=== PATIENT | female | born 1990 ===

== ENCOUNTER 2017-08-09 05:10 | Emergency (ER) | payer MEDICARE, MEDICAID ==
[2017-08-09 05:28] VITALS: TEMP 97.8
[2017-08-09] MEDS ORDERED: Morphine 4 MG/ML VIAL ONE ×2 (05:47→06:58)
--- NOTE | 2017-08-09 06:00 | ED PDOC ---
HPI: General Adult Time Seen by Provider: 08/09/17 05:26 Chief Complaint (Nursing): Back Pain Chief Complaint (Provider): Flank Pain History Per: Patient History/Exam Limitations: no limitations Onset/Duration Of Symptoms: Hrs (x24) Current Symptoms Are (Timing): Still Present Additional Complaint(s): 26 year old female presents to ED with complaints of right flank pain x24 hours and has a past medical history of end-stage renal disease with M/W/F hemodialysis. Notes flank pain progressively worsens with time and radiates down her buttock. Confirms pain worsens with movement and change in position. (- ) numbness or tingling. Notes that Tylenol does not provide any relief. PCP: None Past Medical History Reviewed: Historical Data, Nursing Documentation, Vital Signs Vital Signs: Last Vital Signs Temp 97.8 F 08/09/17 05:25 Pulse 75 08/09/17 05:25 Resp 18 08/09/17 05:25 BP 147/87 08/09/17 05:25 Pulse Ox 97 08/09/17 06:04 - Medical History PMH: Anemia, HTN, Migraine, End Stage Renal Disease (STAGE 5), Chronic Kidney Disease (stage III renal failure, no dialysis) Denies: HIV - Surgical History Surgical History: Denies: No Surg Hx Other surgeries: AV fistula - Family History Family History: States: Unknown Family Hx - Immunization History Hx Tetanus Toxoid Vaccination: (UTD) - Home Medications Home Medications: Ambulatory Orders Medication Instructions Recorded Apixaban [Eliquis] 1 tab PO BID #0 tab 01/27/16 Calcium Acetate [Phoslo] 667 mg PO DAILY #0 tab 01/27/16 Cinacalcet [Sensipar] 1 tab PO DAILY #0 tab 01/27/16 amLODIPine [Norvasc] 5 mg PO DAILY #0 tab 01/27/16 - Allergies Allergies/Adverse Reactions: Allergies Allergy/AdvReac Type Severity Reaction Status Date / Time No Known Allergies Allergy Verified 08/09/17 05:25 Review of Systems ROS Statement: Except As Marked, All Systems Reviewed And Found Negative Musculoskeletal: Positive for: Back Pain ((+) right flank pain), Other (right flank pain radiates down buttock) Neurological: Negative for: Numbness, Other ((-) tingling) Physical Exam - Reviewed Nursing Documentation Reviewed: Yes Vital Signs Reviewed: Yes - Physical Exam Appears: Positive for: Non-toxic, No Acute Distress Skin: Positive for: Normal Color, Warm, Dry Cardiovascular/Chest: Positive for: Regular Rate, Rhythm. Negative for: Murmur Respiratory: Positive for: Normal Breath Sounds. Negative for: Respiratory Distress Gastrointestinal/Abdominal: Positive for: Normal Exam, Soft. Negative for: Tenderness Back: Positive for: Muscle Spasm (appreciable musculoskeletal spasm to the right paralumbar region). Negative for: Normal Inspection (tenderness to right paralumbar region) Extremity: Positive for: Normal ROM. Negative for: Deformity Neurologic/Psych: Positive for: Alert, Oriented. Negative for: Motor/Sensory Deficits - Laboratory Results Result Diagrams: 08/09/17 06:06 08/09/17 06:06 - ECG O2 Sat by Pulse Oximetry: 97 (RA) Pulse Ox Interpretation: Normal Medical Decision Making Medical Decision Makin Initial impression: 26 year old female with low back pain in setting of ESRD Initial plan: * EKG * Labs * Trop I * UDip * UPreg * PTT/PT * Flexeril 10mg PO * Morphine 4mg IVP * Re-eval 0655 Upon re-evaluation patient notes no improvement in pain. Labs reviewed: indicative of end-stage renal disease and shows blood in urine * CTA A/P * XR LUMBAR SPINE * Morphine 6mg IVP * Re-eval 0700 Patient signed out to Dr. Gonsalez pending imaging and re-evaluation. Scribe Attestation: Documented by Genesis Conklin acting as a scribe for Dejuan Castor MD. Scribe Attestation: All medical record entries made by the Scribe were at my direction and personally dictated by me. I have reviewed the chart and agree that the record accurately reflects my personal performance of the history, physical exam, medical decision making, and the department course for this patient. I have also personally directed, reviewed, and agree with the discharge instructions and disposition. Disposition - Patient ED Disposition Is Patient to be Admitted: Transfer of Care - Disposition Referrals: Ricci Pichardo MD [Primary Care Provider] - Disposition Time: 07:00 Condition: FAIR Forms: [employer] (Yoruba) Patient Signed Over To: Jimy Gonsalez Handoff Comments: pending imaging and re-evaluation
[2017-08-09 06:20] LABS: BASO # 0.1 K/uL (0.0-0.2); BASO % 0.5 % (0.0-2.0); EOS # 0.1 K/uL (0.0-0.7); EOS % 1.3 % (0.0-4.0); HEMOGLOBIN 10.7 g/dL (12.0-16.0); LYMPH % 17.9 % (20.0-40.0); MEAN CELL VOLUME 94.1 fl (81.0-99.0); MEAN CORPUSCULAR HEMOGLOBIN 31.8 pg (27.0-31.0); MEAN CORPUSCULAR HGB CONC 33.8 g/dL (33.0-37.0); MEAN PLATELET VOLUME 9.4 fl (7.2-11.7); MONO # 0.6 K/uL (0.0-0.8); MONO % 5.6 % (0.0-10.0); NEUT # 8.4 K/uL (1.8-7.0); NEUT % 74.7 % (50.0-75.0); RBC 3.35 Mil/uL (3.80-5.20); RED CELL DISTRIBUTION WIDTH 13.4 % (11.5-14.5); WHITE BLOOD COUNT 11.2 K/uL (4.8-10.8)
[2017-08-09 06:35] LABS: ALBUMIN 4.4 g/dL (3.5-5.0); BLOOD UREA NITROGEN 70 mg/dl (7-17); CALCIUM 8.2 mg/dL (8.4-10.2); GFR AFRICAN-AMERICAN 5; GFR NON-AFRICAN AMERICAN 4
[2017-08-09 06:36] LABS: ALB/GLOB RATIO 1.2 (1.0-2.1); ALT/SGPT 14 U/L (9-52); AST/SGOT 14 U/L (14-36)
[2017-08-09 06:38] LABS: PARTIAL THROMBOPLASTIN TIME 26.1 Seconds (25.6-37.1); PROTHROMBIN TIME 11.6 Seconds (9.8-13.1)
--- NOTE | 2017-08-09 07:48 | ED PDOC ---
- Laboratory Results Result Diagrams: 08/09/17 06:06 08/09/17 06:06 Interpretation Of Abn Labs: 11.2 wbc - ECG ECG: Positive for: Interpreted By Me, Viewed By Me ECG Rhythm: Positive for: Normal QRS, Normal ST Segment, Sinus Rhythm O2 Sat by Pulse Oximetry: 97 (RA) Pulse Ox Interpretation: Normal - Radiology X-Ray: Interpreted by Me, Viewed By Me X-Ray Interpretation: No Acute Disease - CT Scan/US ct Other Rad Studies (CT/US): Read By Radiologist Other Rad Interpretation: no acute - Progress ED Course And Treament: 700: Took over care from Dr. Castro. Fu on labs and imaging. Here with flank pain. Has kidney failure. 1008: Stable. AAOx3. Pain free. Tolerated PO. Fu with pcp. Disposition Counseled Patient/Family Regarding: Studies Performed, Diagnosis, Need For Followup - Clinical Impression Clinical Impression: Back pain - POA Present On Arrival: None - Disposition Referrals: Ricci Pichardo MD [Primary Care Provider] - 08/10/17 Disposition: Routine/Home Disposition Time: 10:07 Condition: FAIR Additional Instructions: Return if not better in 3 days. Instructions: Low Back Pain (DC)
--- NOTE | 2017-08-09 09:52 | CT ---
PROCEDURE: CT Abdomen and Pelvis without intravenous contrast HISTORY: renal colic COMPARISON: Noncontrast abdomen and pelvis CT 03/03/2015. TECHNIQUE: Helical CT of the abdomen and pelvis was performed without oral or intravenous contrast as per referring physician request. Contrast dose: None Radiation dose: Total exam DLP = 645.98 mGy-cm. This CT exam was performed using one or more of the following dose reduction techniques: Automated exposure control, adjustment of the mA and/or kV according to patient size, and/or use of iterative reconstruction technique. FINDINGS: LOWER THORAX: Dependent atelectasis left base. LIVER: Unremarkable. No gross lesion or ductal dilatation. GALLBLADDER AND BILE DUCTS: Unremarkable. PANCREAS: Unremarkable. No gross lesion or ductal dilatation. SPLEEN: Unremarkable. ADRENALS: Unremarkable. No mass. KIDNEYS AND URETERS: No radiodense urolithiasis, obstructive uropathy or significant perinephric reaction is appreciated bilaterally at this time. Urinary bladder is mildly distended with a thin wall, appearing unremarkable as well. VASCULATURE: Unremarkable. No aortic aneurysm. BOWEL: A few sigmoid diverticular appreciated which are noninflammatory. No obstruction. No gross mural thickening. APPENDIX: Normal appendix. PERITONEUM: Unremarkable. No free fluid. No free air. LYMPH NODES: Unremarkable. No enlarged lymph nodes. BLADDER: Unremarkable. REPRODUCTIVE: Unremarkable. BONES: No acute fracture. OTHER FINDINGS: None. IMPRESSION: No definitive acute abdominal or pelvic findings are appreciated in this noncontrast abdomen and pelvis CT, including the bilateral kidneys, ureters and the urinary bladder. If symptoms persist or worsen consider follow-up contrast CT imaging. Sigmoid diverticulosis appears quite mild, without acute associated changes.
[2017-08-09 10:53] VITALS: BP 132/76; PULSE 76; RESP 16; O2SAT 100
--- NOTE | 2017-08-09 13:18 | RAD ---
PROCEDURE: Radiographs of the Lumbar Spine. HISTORY: back pain COMPARISON: CT scan of the abdomen and pelvis dated 03/03/2015. FINDINGS: BONES: Normal alignment. No listhesis. No fracture. DISC SPACES: Unremarkable. OTHER FINDINGS: None. IMPRESSION: Unremarkable radiographs of the lumbar spine.
--- NOTE | 2017-08-11 11:13 | CARD ---
APPROVED REPORT EKG Measurement Heart [id number] <Conclusion> Normal sinus rhythm Normal ECG
== END 2017-08-09 10:51 | disposition home or self-care (01) ==
LOC: H.ER 05:10
DX: M54.5 Low back pain (principal); R10.9 Unspecified abdominal pain; I12.0 Hypertensive chronic kidney disease with stage 5 chronic kidney disease or end stage renal disease; N18.6 End stage renal disease; Z99.2 Dependence on renal dialysis; K57.30 Diverticulosis of large intestine without perforation or abscess without bleeding; Z79.01 Long term (current) use of anticoagulants
CPT/HCPCS: 72114; 74176; 80053; 81025; 84484; 85025; 85610; 85730; 93005; 96374; 96376; 99284; J2270

== ENCOUNTER 2017-09-21 23:12 | Emergency (ER) | payer MEDICARE, MEDICAID ==
[2017-09-21 23:48] VITALS: RESP 18; O2SAT 100
[2017-09-22 01:00] LABS: BASO % 0.2 % (0.0-2.0); EOS # 0.2 K/uL (0.0-0.7); EOS % 1.3 % (0.0-4.0); HEMOGLOBIN 10.5 g/dL (12.0-16.0); LYMPH % 14.5 % (20.0-40.0); MEAN CELL VOLUME 94.4 fl (81.0-99.0); MEAN CORPUSCULAR HEMOGLOBIN 31.3 pg (27.0-31.0); MEAN CORPUSCULAR HGB CONC 33.2 g/dL (33.0-37.0); MEAN PLATELET VOLUME 10.1 fl (7.2-11.7); MONO # 1.1 K/uL (0.0-0.8); NEUT # 10.7 K/uL (1.8-7.0); RBC 3.35 Mil/uL (3.80-5.20); RED CELL DISTRIBUTION WIDTH 13.4 % (11.5-14.5); WHITE BLOOD COUNT 14.1 K/uL (4.8-10.8)
[2017-09-22 01:39] LABS: ALB/GLOB RATIO 1.3 (1.0-2.1); ALBUMIN 4.5 g/dL (3.5-5.0)
--- NOTE | 2017-09-22 02:36 | ED PDOC ---
HPI:Nausea, Vomiting, Diarrhea Time Seen by Provider: 09/21/17 23:56 Chief Complaint (Nursing): GI Problem Chief Complaint (Provider): GI Problem History Per: Patient History/Exam Limitations: no limitations Onset/Duration Of Symptoms: Days (x2) Current Symptoms Are (Timing): Still Present Associated Symptoms: Nausea, Vomiting Additional Complaint(s): Patient complains of nausea, vomiting and generalized weakness ongoing for the past 2 days. Patient undergoes dialysis on MWF with last treatments yesterday and today. Patient reports having dialysis done Monday and yesterday ( ) as well, with no improvement in symptoms, thus, prompting ED visit. Otherwise: (-) fever, (-) chills, (-) chest pain, (-) shortness of breath, (-) abdominal pain, (-) dysuria or (-) hematuria. Of note, patient states she is sexually active with use protection. LMP: early 07/2017. PMD: Dr. Go Pichardo Past Medical History Reviewed: Historical Data, Nursing Documentation, Vital Signs Vital Signs: Last Vital Signs Temp 98.7 F 09/21/17 23:38 Pulse 82 09/21/17 23:38 Resp 18 09/21/17 23:38 BP 134/89 09/21/17 23:38 Pulse Ox 100 09/21/17 23:38 - Medical History PMH: Anemia, HTN, Migraine, End Stage Renal Disease (STAGE 5), Chronic Kidney Disease (stage III renal failure, no dialysis) Denies: HIV - Family History Family History: States: Unknown Family Hx - Immunization History Hx Tetanus Toxoid Vaccination: (UTD) - Home Medications Home Medications: Ambulatory Orders Medication Instructions Recorded Apixaban [Eliquis] 1 tab PO BID #0 tab 01/27/16 Calcium Acetate [Phoslo] 667 mg PO DAILY #0 tab 01/27/16 Cinacalcet [Sensipar] 1 tab PO DAILY #0 tab 01/27/16 amLODIPine [Norvasc] 5 mg PO DAILY #0 tab 01/27/16 Lidocaine 5% [Lidoderm] 1 ea TD DAILY PRN #5 patch 08/09/17 traMADol [Ultram] 25 mg PO DAILY PRN #5 tab 08/09/17 Cephalexin [cephalexin] 250 mg PO BID #14 cap 09/22/17 - Allergies Allergies/Adverse Reactions: Allergies Allergy/AdvReac Type Severity Reaction Status Date / Time No Known Allergies Allergy Verified 08/09/17 05:25 Review of Systems ROS Statement: Except As Marked, All Systems Reviewed And Found Negative Constitutional: Positive for: Weakness. Negative for: Fever, Chills Cardiovascular: Negative for: Chest Pain Respiratory: Negative for: Shortness of Breath Gastrointestinal: Positive for: Nausea, Vomiting Genitourinary Female: Negative for: Dysuria, Hematuria Physical Exam - Reviewed Nursing Documentation Reviewed: Yes Vital Signs Reviewed: Yes - Physical Exam Comments: GENERAL APPEARANCE: Patient is awake, alert, oriented x 3, in no distress. SKIN: Warm, dry; (-) cyanosis. EYES: (-) conjunctival pallor, (-) scleral icterus. ENMT: Mucous membranes moist. NECK: (-) tenderness, (-) stiffness, (-) lymphadenopathy. CHEST AND RESPIRATORY: (-) rales, (-) rhonchi, (-) wheezes; breath sounds equal bilaterally. HEART AND CARDIOVASCULAR: (-) irregularity; (-) murmur, (-) gallop. ABDOMEN AND GI: (-) distention. Bowel sounds active; (-) tenderness, (-) guarding, (-) rebound, (-) palpable masses, (-) CVA tenderness. EXTREMITIES: (-) deformity, (-) edema, (+) distal pulses. NEURO AND PSYCH: Mental status as above; (-) focal findings. - Laboratory Results Result Diagrams: 09/22/17 00:57 09/22/17 00:57 - ECG O2 Sat by Pulse Oximetry: 100 (RA) Pulse Ox Interpretation: Normal Medical Decision Making Medical Decision Making: Initial Impression: Nausea; vomiting Initial Plan: * BETA-HCG * CMP * Lipase * Urine * Urine dipstick * CBC * Zofran 4mg IVP Time: 0104 --Urine: (+) . Udip: (+) trace leuks, (+) glucose 250, (+) protiens > 300. --BETA-HCG at 189,750mIU/mL. --CMP wnl --US OB transvaginal ordered. US OB TV: FINDINGS: Gestation: Single living intrauterine gestation Placenta/amniotic fluid: Living intrauterine gestation at 7 weeks 0 days [place] is 05/11/18 Positive embryonic heart tones at 135 beats per minute Gestational sac is located in the uterine fundus. Normal secondary yolk sac. No significant subchorionic bleed. The placenta is forming posteriorly and is currently previa. Final placental positioning is determined after 32 weeks. Uterus/cervix: Cervix is closed. Nabothian cyst. No myometrial mass. Ovaries: Maternal ovaries identified with documented flow and follicles. There is a probable 2 cm right corpus luteum cyst. No mass. Free fluid: No free fluid. IMPRESSION: Single living intrauterine gestation without abnormalities. Dictated and Authenticated by: Audelia Morales MD 09/22/2017 3:46 AM Eastern Time ([place] & [place]) On re-evaluation, patient reports no abdominal pain or vaginal bleeding. On exam , patient remains AAOx3, in no acute distress. Abdomen soft, non-tender, repeat neuro exam shows no focal findings. Diagnostic results d/w the patient in great detail. Diagnosis of early , UTI d/w the patient. Based on history, exam and diagnostic results, plan will be for outpatient follow up. Patient instructed to follow-up with bedspread cutter hand and high court justice in 1-2 days without fail. Advised to take medication as prescribed. Return to the emergency room at any time for any new or worsening symptoms. Patient states she fully agrees with and understands discharge instructions. States that she agrees with the plan and disposition. Verbalized and repeated discharge instructions and plan. I have given the patient opportunity to ask any additional questions. Scribe Attestation: Documented by Violeta Zhu, acting as a scribe for Ching Espino PA-C. Provider Scribe Attestation: All medical record entries made by the Scribe were at my direction and personally dictated by me. I have reviewed the chart and agree that the record accurately reflects my personal performance of the history, physical exam, medical decision making, and the department course for this patient. I have also personally directed, reviewed, and agree with the discharge instructions and disposition. Disposition - Clinical Impression Clinical Impression: Chronic kidney disease with end stage renal failure on dialysis, , UTI (urinary tract infection) - Patient ED Disposition Is Patient to be Admitted: No Counseled Patient/Family Regarding: Studies Performed, Diagnosis, Need For Followup - Disposition Referrals: Go Pichardo MD [Primary Care Provider] - Corey Harris MD [Staff Provider] - Disposition: Routine/Home Disposition Time: 03:15 Condition: STABLE Additional Instructions: Thank you for letting us take care of you today. You were treated for renal failure on dialysis, . The emergency medical care you received today was directed towards the acute presenting symptoms. Return to the Emergency Department at any time if symptoms worsen, do not improve, or if any other problems arise. Please contact your kidney doctor in 2 days for re-evaluation and follow up / or call one of the physicians/clinics you have been referred to that are listed on the Patient Visit Information form that is included in your discharge packet. Bring any paperwork you were given at discharge with you along with any medications to your follow up visit. Our treatment cannot replace ongoing medical care by a primary care provider (PCP) outside of the emergency department. Thank you for allowing the [facility] team to be part of your care today. Prescriptions: Cephalexin [cephalexin] 250 mg PO BID #14 cap Instructions: Urinary Tract Infections in Adults, Kidney Failure (DC), - The Second Month Forms: [employer] (Honduran) - PA / STATE APPELLATE CLERK / Resident Statement MD/DO has reviewed & agrees with the documentation as recorded.
[2017-09-22 05:41] VITALS: BP 137/75; PULSE 73; TEMP 98.3
--- NOTE | 2017-09-22 12:03 | US ---
Date of service: 09/22/2017 PROCEDURE: First trimester ultrasound HISTORY: nausea, test COMPARISON: None available. TECHNIQUE: Standard protocol for this study/examination. FINDINGS: LMP: Unknown. Prior examinations from the current : None TECHNIQUE: Real-time 2D imaging, duplex and color Doppler. FINDINGS: Cardiac activity: Present Rate: 135 BPM Measurements: Spur rump length: 0.91 cm Gestational age based on CRL 6 weeks 6 days Gestational age 7 weeks 1 day based on gestational sac measurement 2.47 cm Gestational age derived from LMP: Cannot be ascertained based in the absence of a reliable/ known LMP [place] based on LMP: Cannot be ascertained based in the absence of a reliable/ known LMP [place] based on biometry: 05/11/2018 Gestational concordance Cannot be ascertained based in the absence of a reliable/ known LMP Yolk sac identified Uterus: Unremarkable. Cervix: No Cervical abnormalities: Negative examination for cervical dilatation or effacement. Closed cervix measuring 4.56 cm Subchorionic hemorrhage: None UTERUS: 6.8 x 4.8 x 9.0 cm. ADNEXA: Right: 2.7 x 3.5 cm. Normal Doppler arterial waveform documented. Left: 3.2 x 2.3 x 2.1 cm. Complex cyst likely hemorrhagic 2.2 x 2.1 x 1.7 cm. Normal Doppler arterial waveform documented Fluid in the cul-de-sac: None IMPRESSION: Seven weeks live intrauterine gestation. Additional benign and/or incidental findings described above. Concordant results (preliminary interpretation) provided by [employer]. Procedure Completed: 01:48. Preliminary ([employer]) Report: Dictated and Authenticated: 03:46. Final Interpretation: 12:01 September 22, 2017.
== END 2017-09-22 03:44 | disposition home or self-care (01) ==
LOC: H.ER 23:12
DX: N18.6 End stage renal disease (principal); Z99.2 Dependence on renal dialysis; O23.41 Unspecified infection of urinary tract in pregnancy, first trimester; O26.831 Pregnancy related renal disease, first trimester; Z3A.01 Less than 8 weeks gestation of pregnancy; Z79.01 Long term (current) use of anticoagulants; O21.9 Vomiting of pregnancy, unspecified
CPT/HCPCS: 76817; 80053; 81025; 83690; 84702; 85025; 87086; 96374; 99284; J2405

== ENCOUNTER 2017-10-28 02:26 | Emergency (ER) | payer MEDICARE, MEDICAID ==
[2017-10-28 02:48] VITALS: RESP 18; TEMP 98.4
[2017-10-28] MEDS ORDERED: Morphine 4 MG/ML VIAL ONE (03:49)
[2017-10-28 03:52] LABS: BASO # 0.1 K/uL (0.0-0.2); BASO % 0.3 % (0.0-2.0); EOS # 0.2 K/uL (0.0-0.7); EOS % 0.8 % (0.0-4.0); HEMOGLOBIN 8.8 g/dL (12.0-16.0); LYMPH # 2.3 K/uL (1.0-4.3); LYMPH % 12.3 % (20.0-40.0); MEAN CELL VOLUME 92.6 fl (81.0-99.0); MEAN CORPUSCULAR HEMOGLOBIN 32.1 pg (27.0-31.0); MEAN CORPUSCULAR HGB CONC 34.7 g/dL (33.0-37.0); MEAN PLATELET VOLUME 9.4 fl (7.2-11.7); MONO % 5.6 % (0.0-10.0); NEUT # 14.9 K/uL (1.8-7.0); RBC 2.73 Mil/uL (3.80-5.20); RED CELL DISTRIBUTION WIDTH 13.6 % (11.5-14.5); WHITE BLOOD COUNT 18.4 K/uL (4.8-10.8)
[2017-10-28 04:25] LABS: ALB/GLOB RATIO 1.2 (1.0-2.1); ALBUMIN 4.1 g/dL (3.5-5.0)
[2017-10-28 04:26] LABS: PROTHROMBIN TIME 10.7 Seconds (9.8-13.1)
[2017-10-28 04:29] LABS: PARTIAL THROMBOPLASTIN TIME 26.4 Seconds (25.6-37.1)
[2017-10-28 05:17] LABS: SQUAMOUS EPITHIAL 5 /hpf (0-5); URINE BACTERIA RARE (<OCC); URINE BILIRUBIN NEGATIVE (NEGATIVE); URINE BLOOD NEGATIVE (NEGATIVE); URINE CLARITY SLIGHTY-CLOUDY (Clear); URINE COLOR YELLOW (YELLOW); URINE GLUCOSE (UA) 150 mg/dL (Normal); URINE LEUKOCYTE ESTERASE NEG Leu/uL (Negative); URINE PROTEIN 100 mg/dL (NEGATIVE); URINE UROBILINOGEN 0.2-1.0 mg/dL (0.2-1.0)
--- NOTE | 2017-10-28 05:34 | ED PDOC ---
HPI: Abdomen Time Seen by Provider: 10/28/17 03:00 Chief Complaint (Nursing): Abdominal Pain Chief Complaint (Provider): Abdominal Pain, Rectal Pain History Per: Patient History/Exam Limitations: no limitations Onset/Duration Of Symptoms: Days (x2) Current Symptoms Are (Timing): Still Present Additional Complaint(s): 26 year old female EGA 12 weeks, with a pmhx of end stage renal disease on dialysis (Mon SAT), presents to the ED for two days of worsening rectal and abdominal pain. Patient reports strained bowel movements, but otherwise denies fever, diarrhea, nausea, vomiting, urinary sxs, and changes in appetite. She visits multiple doctors, such as Marino - her ski patrol officer, a high risk maternal group in [place], and an cullet crusher and washer in [place]. PMD: Go Pichardo Past Medical History Reviewed: Historical Data, Nursing Documentation, Vital Signs Vital Signs: Last Vital Signs Temp 98.4 F 10/28/17 02:45 Pulse 96 H 10/28/17 02:45 Resp 18 10/28/17 02:45 BP 151/91 H 10/28/17 02:45 Pulse Ox 99 10/28/17 05:48 - Medical History PMH: Anemia, HTN, Migraine, End Stage Renal Disease (STAGE 5), Chronic Kidney Disease (stage III renal failure, no dialysis) Denies: HIV - Surgical History Other surgeries: AV fistulas - Family History Family History: States: Unknown Family Hx - Social History Current smoker - smoking cessation education provided: No Alcohol: None Drugs: Denies - Immunization History Hx Tetanus Toxoid Vaccination: (UTD) - Home Medications Home Medications: Ambulatory Orders Medication Instructions Recorded Apixaban [Eliquis] 1 tab PO BID #0 tab 01/27/16 Calcium Acetate [Phoslo] 667 mg PO DAILY #0 tab 01/27/16 Cinacalcet [Sensipar] 1 tab PO DAILY #0 tab 01/27/16 amLODIPine [Norvasc] 5 mg PO DAILY #0 tab 01/27/16 Lidocaine 5% [Lidoderm] 1 ea TD DAILY PRN #5 patch 08/09/17 traMADol [Ultram] 25 mg PO DAILY PRN #5 tab 08/09/17 Cephalexin [cephalexin] 250 mg PO BID #14 cap 09/22/17 Hard Fat/Phenylephrine [place] 2 sup [place] BID #28 sup 10/28/17 [Hemorrhoidal 88.7%-0.25%] Polyethylene Glycol 3350 [Miralax] 17 g PO QAM PRN #7 pkg 10/28/17 - Allergies Allergies/Adverse Reactions: Allergies Allergy/AdvReac Type Severity Reaction Status Date / Time No Known Allergies Allergy Verified 10/28/17 02:45 Review of Systems ROS Statement: Except As Marked, All Systems Reviewed And Found Negative Constitutional: Negative for: Fever Gastrointestinal: Positive for: Abdominal Pain, Rectal Pain, Other (strained bowel movements). Negative for: Nausea, Vomiting, Diarrhea Genitourinary Female: Negative for: Dysuria, Frequency Physical Exam - Reviewed Nursing Documentation Reviewed: Yes Vital Signs Reviewed: Yes - Physical Exam Appears: Positive for: No Acute Distress Head Exam: Positive for: ATRAUMATIC, NORMOCEPHALIC Skin: Positive for: Normal Color, Warm, Dry Eye Exam: Positive for: Normal appearance ENT: Positive for: Normal ENT Inspection Neck: Positive for: Normal, Painless ROM, Supple Cardiovascular/Chest: Positive for: Regular Rate, Rhythm Respiratory: Positive for: Normal Breath Sounds Gastrointestinal/Abdominal: Positive for: Tenderness (mild suprapubic) Back: Positive for: Normal Inspection Rectal: Positive for: Hemorrhoids (no external, but palpable internal one around 6 o'clock with no gross blood) Extremity: Positive for: Normal ROM Neurologic/Psych: Positive for: Alert, Oriented Comments: Research Laboratory Manager for rectal exam: Analia Enriquez - Laboratory Results Result Diagrams: 10/28/17 03:41 10/28/17 03:41 - ECG O2 Sat by Pulse Oximetry: 99 (RA) Pulse Ox Interpretation: Normal Medical Decision Making Medical Decision Making: Time: 303 Initial Impression: 26 year old female with abdominal and rectal pain associated with and constipation Initial Plan: --Beta-HCG quant --CMP --Lipase --Urine dipstick --CBC w differential --PTT / PT --Morphine 4mg IVP --Reglan 10mg IVPB --Urinalysis --US OB transvaginal 0536 US OB TRANSVAG FINDINGS: Gestation: There is single intrauterine gestational sac with presence of pole The heart motion at the rate of 155 beats per minute. Estimated gestational age calculated from [place] rump length is estimated to be 12 weeks 1 days and estimated gestational age calculated from mean sac diameter is 11 weeks 2 days. Placenta/amniotic fluid: Placenta is forming posteriorly. Uterus/cervix: Unremarkable. Ovaries: The right ovary measures 7.9 x 7.8 x 5.4 cm. Enlarged right ovary. The left ovary measures 7.9 x 7.9 x 5.9 cm. Enlarged left ovary. Free fluid: No free fluid. IMPRESSION: 1. Enlarged bilateral ovaries with multiple cysts. 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 2. IUP as described. 0540 Labs reviewed and show high leukocytes consistent with leukocytosis and . Pt is stable for d/c with the diagnosis of hemorrhoids, ovarian cysts , and proctalgia. Pt is to receive dialysis tx later today and follow up with her PMD. Scribe Attestation: Documented by Diamante Reddy, acting as a scribe for Dejuan Castro MD. Provider Scribe Attestation: All medical record entries made by the Scribe were at my direction and personally dictated by me. I have reviewed the chart and agree that the record accurately reflects my personal performance of the history, physical exam, medical decision making, and the department course for this patient. I have also personally directed, reviewed, and agree with the discharge instructions and disposition. Disposition - Clinical Impression Clinical Impression: Proctalgia, Ovarian cyst - Patient ED Disposition Is Patient to be Admitted: No Counseled Patient/Family Regarding: Studies Performed, Diagnosis, Need For Followup - Disposition Disposition: Routine/Home Disposition Time: 05:50 Condition: STABLE Prescriptions: Hard Fat/Phenylephrine [place] [Hemorrhoidal 88.7%-0.25%] 2 sup [place] BID #28 sup Polyethylene Glycol 3350 [Miralax] 17 g PO QAM PRN #7 pkg PRN Reason: Constipation Instructions: Ovarian Cysts, Hemorrhoids (DC) Forms: [employer] (Dutch)
[2017-10-28 06:43] VITALS: BP 148/89; PULSE 82; O2SAT 98
--- NOTE | 2017-10-28 08:25 | US ---
Date of service: 10/28/2017 PROCEDURE: HISTORY: abd pain in preg COMPARISON: 09/22/2017 TECHNIQUE: FINDINGS: Single live intrauterine gestational sac with pole and estimated gestational age of roughly 12 weeks. . Right ovary measures 7.9 x 7.8 x 5.4 centimeters. Left ovary measures 7.9 x 7.9 x 5.9 centimeters. No free fluid the pelvis. heart motion identified. Posterior placenta. IMPRESSION: IUP as described above. Enlarged bilateral ovaries with numerous bilateral ovarian cysts possibly related to ovarian stimulation syndrome. Recommend short-term interval followup and gynecological consultation.
== END 2017-10-28 06:00 | disposition home or self-care (01) ==
LOC: H.ER 02:26
DX: O34.80 Maternal care for other abnormalities of pelvic organs, unspecified trimester (principal); I12.0 Hypertensive chronic kidney disease with stage 5 chronic kidney disease or end stage renal disease; O10.211 Pre-existing hypertensive chronic kidney disease complicating pregnancy, first trimester; Z99.2 Dependence on renal dialysis; Z79.01 Long term (current) use of anticoagulants
CPT/HCPCS: 76817; 80053; 81003; 83690; 84702; 85025; 85610; 85730; 96374; 99283; J2270; J2765

== ENCOUNTER 2017-12-05 20:48 | Emergency (ER) | payer MEDICARE, MEDICAID ==
[2017-12-05 22:30] LABS: VENOUS BLOOD GAS BASE EXCESS 4.9 mmol/L (0.0-2.0); VENOUS BLOOD GAS PCO2 41 mmHg (40-60); VENOUS BLOOD GAS PO2 53 mm/Hg (30-55); VENOUS BLOOD PH 7.46 (7.32-7.43)
[2017-12-05 22:31] LABS: BASO % 0.3 % (0.0-2.0); EOS # 0.1 K/uL (0.0-0.7); EOS % 0.8 % (0.0-4.0); HEMOGLOBIN 7.7 g/dL (12.0-16.0); LYMPH # 1.9 K/uL (1.0-4.3); LYMPH % 12.5 % (20.0-40.0); MEAN CELL VOLUME 102.6 fl (81.0-99.0); MEAN CORPUSCULAR HEMOGLOBIN 34.5 pg (27.0-31.0); MEAN CORPUSCULAR HGB CONC 33.6 g/dL (33.0-37.0); MEAN PLATELET VOLUME 8.3 fl (7.2-11.7); MONO # 0.8 K/uL (0.0-0.8); MONO % 5.1 % (0.0-10.0); NEUT # 12.5 K/uL (1.8-7.0); NEUT % 81.3 % (50.0-75.0); RBC 2.23 Mil/uL (3.80-5.20); RED CELL DISTRIBUTION WIDTH 19.9 % (11.5-14.5); WHITE BLOOD COUNT 15.4 K/uL (4.8-10.8)
[2017-12-05 22:51] LABS: TROPONIN I 0.016 ng/mL (0.00-0.120)
[2017-12-05 22:58] LABS: CALCIUM 9.3 mg/dL (8.4-10.2)
--- NOTE | 2017-12-05 23:24 | ED PDOC ---
HPI: SOB/CHF/COPD Time Seen by Provider: 12/05/17 21:21 Chief Complaint (Nursing): Shortness Of Breath Chief Complaint (Provider): Shortness of breath History Per: Patient History/Exam Limitations: no limitations Onset/Duration Of Symptoms: Days (1x) Current Symptoms Are (Timing): Still Present Severity: Moderate Additional Complaint(s): 27 year old female 17 weeks with a medical history of end stage renal disease (on dialysis 5x times a week) presents to the ED with complaints of shortness of breath that started 1x day ago. Patient states that there is also a lump in her chin and "achiness". Patient reports that she missed dialysis today, otherwise she goes to her appointments and the next scheduled one is for 9AM on 12/06/2017. Patient states that she follows up with a high risk specialist (Karlos STEELE, [facility]). Patient denies having any recent illness, sick contacts, bleeding, abdominal pain. PMD: Jaleesa Pichardo MD OBGYN: Karlos [facility] Past Medical History Reviewed: Historical Data, Nursing Documentation, Vital Signs Vital Signs: Last Vital Signs Temp 98.5 F 12/05/17 20:56 Pulse 103 H 12/05/17 20:56 Resp 18 12/05/17 22:18 BP 166/103 H 12/05/17 20:56 Pulse Ox 100 12/05/17 22:18 - Medical History PMH: Anemia, HTN, Migraine, End Stage Renal Disease (STAGE 5), Chronic Kidney Disease (stage III renal failure, no dialysis) Denies: HIV - Family History Family History: States: No Known Family Hx - Social History Current smoker - smoking cessation education provided: No Alcohol: None - Immunization History Hx Tetanus Toxoid Vaccination: (UTD) - Home Medications Home Medications: Ambulatory Orders Medication Instructions Recorded Apixaban [Eliquis] 1 tab PO BID #0 tab 01/27/16 Calcium Acetate [Phoslo] 667 mg PO DAILY #0 tab 01/27/16 Cinacalcet [Sensipar] 1 tab PO DAILY #0 tab 01/27/16 amLODIPine [Norvasc] 5 mg PO DAILY #0 tab 01/27/16 Lidocaine 5% [Lidoderm] 1 ea TD DAILY PRN #5 patch 08/09/17 traMADol [Ultram] 25 mg PO DAILY PRN #5 tab 08/09/17 Cephalexin [cephalexin] 250 mg PO BID #14 cap 09/22/17 Hard Fat/Phenylephrine Couch 2 sup IL BID #28 sup 10/28/17 [Hemorrhoidal 88.7%-0.25%] Polyethylene Glycol 3350 [Miralax] 17 g PO QAM PRN #7 pkg 10/28/17 Acetaminophen [Acetaminophen 8 650 mg PO Q8 PRN #21 tablet.er 11/01/17 Hour] Hydrocortisone 2.5% (Rectal) 1 applic IL BID PRN #1 tube 11/01/17 [Anusol-HC] - Allergies Allergies/Adverse Reactions: Allergies Allergy/AdvReac Type Severity Reaction Status Date / Time No Known Allergies Allergy Verified 11/01/17 14:55 Review of Systems ROS Statement: Except As Marked, All Systems Reviewed And Found Negative Respiratory: Positive for: Shortness of Breath Skin: Positive for: Other (lump on chin with achiness) Physical Exam - Reviewed Nursing Documentation Reviewed: Yes Vital Signs Reviewed: Yes - Physical Exam Appears: Positive for: Well, Non-toxic, No Acute Distress (patient appears anxious) Head Exam: Positive for: ATRAUMATIC, NORMOCEPHALIC Skin: Positive for: Normal Color ENT: Positive for: Other (on chin: soft non-fluctuant mass. (-) tongue swelling, erythema of pharynx) Cardiovascular/Chest: Positive for: Regular Rate, Rhythm Respiratory: Positive for: Normal Breath Sounds. Negative for: Crackles, Rhonchi Gastrointestinal/Abdominal: Positive for: Normal Exam, Soft. Negative for: Tenderness Extremity: Negative for: Swelling (no edema) Neurologic/Psych: Positive for: Alert, Oriented (3x) - Laboratory Results Result Diagrams: 12/05/17 22:19 12/05/17 22:19 - ECG O2 Sat by Pulse Oximetry: 100 (RA) Pulse Ox Interpretation: Normal Medical Decision Making Medical Decision Makin:21 Initial impression: 27 year old female 17 weeks with complains of shortness of breath and a lump on her chin. Workup for fluid overload vs. infection leading to shortness of breath. Initial plan: * VBG * BNP * BMP * magnesium * phosphorous * troponin I * CBC with differential * XRay chest portable * solumedrol 125 mg IVP once for swelling * O2 via nasal cannula * US OB saini as per request of patient to make sure there are no complications * reevaluation 23:00 Patient is being signed out by me to Dejuan Castro MD pending ultrasound and reevaluation. Scribe Attestation: Documented by Eve Lance, acting as a scribe for Eve Gardiner MD. Provider Scribe Attestation: All medical record entries made by the Scribe were at my direction and personally dictated by me. I have reviewed the chart and agree that the record accurately reflects my personal performance of the history, physical exam, medical decision making, and the department course for this patient. I have also personally directed, reviewed, and agree with the discharge instructions and disposition. Disposition - Disposition Forms: Reebee (Mongolian)
[2017-12-06 00:09] VITALS: BP 135/78; PULSE 91; RESP 16; TEMP 98.8; O2SAT 97
--- NOTE | 2017-12-06 10:45 | RAD ---
Date of service: 12/05/2017 HISTORY: SOB COMPARISON: 01/26/2016. FINDINGS: LUNGS: The lungs are well inflated and clear. PLEURA: No significant pleural effusion identified, no pneumothorax apparent. CARDIOVASCULAR: Normal. OSSEOUS STRUCTURES: No significant abnormalities. VISUALIZED UPPER ABDOMEN: Normal. OTHER FINDINGS: None. IMPRESSION: No active pulmonary disease.
--- NOTE | 2017-12-06 11:44 | US ---
Date of service: 12/05/2017 PROCEDURE: OB Pelvic Ultrasound HISTORY: preg with missed dialysis LMP not provided at this setting COMPARISON: 10/28/2017 FINDINGS: UTERUS: Gestational sac: Single intrauterine gestation. Heart rate: 156 bpm. age (Ultrasound estimated): 17 weeks 6 days +/-1 week 2 days Kalyani-gestational hemorrhage: None. Date of delivery (Ultrasound estimated) : 05/09/2018 No gross uterine masses seen CERVIX: Measures 4.8 cm. Long and closed. No cervical abnormality seen. RIGHT OVARY: Measures 7.9 x 4.9 x 5.3 cm. The appearance of the right ovary has markedly changed since the prior 10/28/2017 study. A 4.2 x 3.6 x 4.2 multiloculated component to the right ovary is noted this is much smaller in size compared to the prior much larger multiloculated appearance normal flow seen. Not all the right ovary appears loculated. Surveillance is recommended. LEFT OVARY: Not visualized. FREE FLUID: None. OTHER FINDINGS: None. IMPRESSION: Single intrauterine gestation with normal cardiac activity whose menstrual age by ultrasound parameters is approximately 17 weeks 6 days +/-1 week 2 days. Interval decrease in size and extent of the right adnexal/right ovarian locules within previously larger loculated cysts. Correlate clinically with beta HCG levels regarding potential gestational trophoblastic changes. However diminution in size is suggested. Size of the right ovary is still prominent as above. 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 Nonvisualized left ovary. Initial [facility] rad report referenced right corpus luteal cyst. No prior comparison was made. Findings are as noted above.
== END 2017-12-06 00:23 | disposition home or self-care (01) ==
LOC: H.ER 20:48
DX: O99.512 Diseases of the respiratory system complicating pregnancy, second trimester (principal); J44.9 Chronic obstructive pulmonary disease, unspecified; O26.832 Pregnancy related renal disease, second trimester; Z99.2 Dependence on renal dialysis; N18.6 End stage renal disease; Z36.9 Encounter for antenatal screening, unspecified; I12.0 Hypertensive chronic kidney disease with stage 5 chronic kidney disease or end stage renal disease; Z79.01 Long term (current) use of anticoagulants; Z3A.17 17 weeks gestation of pregnancy
CPT/HCPCS: 71045; 76815; 80048; 81025; 82803; 83735; 83880; 84100; 84484; 85025; 96374; 99284; J2405; J2930

== ENCOUNTER 2018-02-04 23:32 | Emergency (ER) | payer MEDICARE, MEDICAID ==
[2018-02-04 23:48] VITALS: BMI 29.2
--- NOTE | 2018-02-05 01:14 | OBHP ---
Datetime: 02/05/2018 01:01 IP Adm Impression: , intrauterine IP Chief Complaint Other: overall itching and acid reflux IP Admit Plan: Observation/Evaluation; Discharge home Admit Comment, IP Provider: Patient is a @ 27 wks with a history of kidney failure on daily dialysis 6x/wk, presents with complaints of overall body itching and acid reflux. Patient reports she has been having increased body itching for a week or so including her palms and soles, her MFM has d rawn the appropriate labs on 02/01. Patient has not tried any OTC medication. Patient also reports she has been having daily acid reflux, feels an overall burning sensation in the mid epigastric area trina t causes her to have some vomiting daily. As per patient, she was told to keep meals small and drink milk when the acidity is increased. Patient reports her phosphorous levels are elevated because of he r increased milk intake and her doctors have told her not to take Tums or other antiacids. Her MFM is Dr. Madrigal in [place] and pt has her daily dialysis in [place]. Discussed with patient that the bile acids can take about a week and at this time the only treatment that we can safely recommend is topical creams/hypoallergenic cream. For her acidity, do not recommend treating patient with antacids or Tums because both are excreted in the urine and can affect her existing kidney failure. Patient's initial BP is 152/90 and FHR = 140 mod maral, no accels no decels, no other OB complaints. Discussed w ith patient that she is not in acute distress nor is the fetus and both of these issues are benign is sues - patient to be better served at a high risk facility that takes care of OB patients on dialysis . Patient feels most comfortable with her team at [place]. Patient is being discharged and is nicholas g to receive immediate care at [place] Pelvic Type - PN: Adequate Extremities - PN: Normal Abdomen - PN: Normal Back - PN: Normal Breast - PN: Normal Lungs - PN: Normal Heart - PN: Normal Thyroid - PN: Normal Neurologic - PN: Normal HEENT - PN: Normal General - PN: Normal FHR - Baseline A Provider: 140 Contraction Comments Provider: none Vital Signs Provider: Reviewed NICHFelix Variability Prov Fetus A: Moderate 6-25bpm NICHD Decel Fetus A IP Provider: None Genitourinary Exam: Normal DTRs - PN: Normal
--- NOTE | 2018-02-05 01:16 | OBDCSUM ---
Datetime: 02/05/2018 00:46 Discharged to, Provider: Other Follow up at, Provider: [facility] Disch Instr Activity: Normal activity Disch Instr Diet: Restricted, specify Discharge Diet restrict Prov: Renal Diet - as per pts high risk MD. Discharge Time: 02/05/2018 00:46 Follow up in weeks, Provider: 02/05/2018 Disch Referrals: None Discharge Diagnosis Prov Other: generalized itching and acid reflux in
[2018-02-05 05:40] VITALS: BP 152/93; PULSE 99; TEMP 97.4
== END 2018-02-05 00:52 | disposition home or self-care (01) ==
LOC: H.EROB2 23:32
DX: O26.92 Pregnancy related conditions, unspecified, second trimester (principal); L29.9 Pruritus, unspecified; Z99.2 Dependence on renal dialysis; O99.89 Other specified diseases and conditions complicating pregnancy, childbirth and the puerperium; N19 Unspecified kidney failure

== ENCOUNTER 2018-03-19 22:01 | Inpatient (IN) | payer MEDICARE, MEDICAID ==
[2018-03-19 22:01] VITALS: BMI 29.2
[2018-03-19] MEDS ORDERED: Albuterol-Ipratrop 3 mg / 0.5 (3 ml) UD INH STA ×2 (22:26)
[2018-03-19] MEDS ORDERED: Promethazine DM 12.5 mg-30 mg/10 ml Syrup PO STA (22:26)
[2018-03-19] MEDS ORDERED: Promethazine 6.25 MG/5 ML CUP ONE (22:34)
[2018-03-19] MEDS ORDERED: Albuterol-Ipratrop 3 mg / 0.5 (3 ml) UD ONE (22:34)
--- NOTE | 2018-03-19 22:42 | ED PDOC ---
HPI: SOB/CHF/COPD Time Seen by Provider: 03/19/18 22:18 Chief Complaint (Nursing): Shortness Of Breath Chief Complaint (Provider): Shortness Of Breath History Per: Patient History/Exam Limitations: no limitations Onset/Duration Of Symptoms: Days (x 3) Current Symptoms Are (Timing): Still Present Associated Symptoms: denies: Fever, Chills, Sweating Additional Complaint(s): 27 year old female with a history of ESRD (dialysis T, Th, Sat.) presents to the ED with a cough that began during her last dialysis 3 days ago. Since the cough began, she has also experienced difficulty breathing. Patient does not use oxygen at home. Of note, she delivered a child a week ago. Denies sick contacts, fever, chills, sweats, and leg swelling. PMD: at the dialysis clinic Tool Lathe Operator: Dr. Pichardo Past Medical History Reviewed: Historical Data, Nursing Documentation, Vital Signs Vital Signs: Last Vital Signs Temp Pulse 88 03/19/18 22:04 Resp 20 03/19/18 22:04 BP 165/105 H 03/19/18 22:04 Pulse Ox 96 03/19/18 22:04 - Medical History PMH: Anemia, HTN, Migraine, End Stage Renal Disease (STAGE 5), Chronic Kidney Disease (stage III renal failure) Denies: HIV - Surgical History Surgical History: No Surg Hx - Family History Family History: States: Unknown Family Hx - Immunization History Hx Tetanus Toxoid Vaccination: (UTD) - Home Medications Home Medications: Ambulatory Orders Medication Instructions Recorded Acetaminophen [Acetaminophen 8 650 mg PO Q8 PRN #21 tablet.er 11/01/17 Hour] Famotidine [Pepcid] 20 mg PO DAILY 03/20/18 Labetalol [Trandate] 200 mg PO Q12 03/20/18 Sucroferric Oxyhydroxide [Velphoro] 500 mg PO TID 03/20/18 - Allergies Allergies/Adverse Reactions: Allergies Allergy/AdvReac Type Severity Reaction Status Date / Time No Known Allergies Allergy Verified 02/04/18 23:44 Review of Systems ROS Statement: Except As Marked, All Systems Reviewed And Found Negative Constitutional: Negative for: Fever, Chills, Sweats, Other (sick contacts) Respiratory: Positive for: Cough, Shortness of Breath Musculoskeletal: Negative for: Leg Pain (or swelling) Physical Exam - Reviewed Nursing Documentation Reviewed: Yes Vital Signs Reviewed: Yes - Physical Exam Appears: Positive for: Non-toxic, No Acute Distress Head Exam: Positive for: ATRAUMATIC, NORMAL INSPECTION, NORMOCEPHALIC Skin: Positive for: Normal Color, Warm, Dry Eye Exam: Positive for: EOMI, Normal appearance, PERRL Neck: Positive for: Normal, Painless ROM, Supple Cardiovascular/Chest: Positive for: Regular Rate, Rhythm. Negative for: Murmur Respiratory: Positive for: Crackles (bilaterally), Other (actively coughing). Negative for: Respiratory Distress Gastrointestinal/Abdominal: Positive for: Normal Exam, Soft. Negative for: Tenderness, Mass, Distended, Guarding Back: Positive for: Normal Inspection. Negative for: L CVA Tenderness, R CVA Tenderness Extremity: Positive for: Normal ROM (x 4), Other (fistula in left arm). Negative for: Pedal Edema, Swelling Neurologic/Psych: Positive for: Alert, Oriented (x 3). Negative for: Motor/Sensory Deficits - Laboratory Results Result Diagrams: 03/19/18 22:45 03/19/18 22:45 - ECG O2 Sat by Pulse Oximetry: 96 (RA) Pulse Ox Interpretation: Normal Medical Decision Making Medical Decision Makin:26 MDM: History of ESRD presenting with cough and shortness of breath Not concerned for pulmonary embolism or amniotic fluid embolism based on symptoms Shortness of breath is likely related to cough and viral or bacterial infection Orders: --VBG --EKG --BNP --BMP --CBC --CXR --Duoneb 3 ml INH --Duoneb 3 ml INH --Promethazine DM 10 ml PO --Peak flow pre/post --Influenza AB 0000 Patient tried ambulating to the bathroom and became diaphoretic and dypsneic Patient has evidence of consolidation of R middle lung Will admit for PNA, hypoxia Dr. Reveles aware Scribe Attestation: Documented by Kenzie Ivey acting as a scribe for Brad Reeder MD Provider Scribe Attestation: All medical record entries made by the Scribe were at my direction and personally dictated by me. I have reviewed the chart and agree that the record accurately reflects my personal performance of the history, physical exam, medical decision making, and the department course for this patient. I have also personally directed, reviewed, and agree with the discharge instructions and disposition. Disposition - Clinical Impression Clinical Impression: Respiratory tract infection - Patient ED Disposition Is Patient to be Admitted: No - Disposition Disposition: Routine/Home Disposition Time: 00:00 Condition: FAIR
[2018-03-19 22:57] LABS: VENOUS BLOOD GAS BASE EXCESS 5.9 mmol/L (0.0-2.0); VENOUS BLOOD GAS PCO2 39 mmHg (40-60); VENOUS BLOOD GAS PO2 51 mm/Hg (30-55); VENOUS BLOOD PH 7.49 (7.32-7.43)
[2018-03-19 23:25] LABS: BASO % 0.3 % (0.0-2.0); EOS # 0.1 K/uL (0.0-0.7); EOS % 0.7 % (0.0-4.0); HEMOGLOBIN 8.5 g/dL (12.0-16.0); LYMPH # 1.5 K/uL (1.0-4.3); LYMPH % 10.9 % (20.0-40.0); MEAN CELL VOLUME 104.6 fl (81.0-99.0); MEAN CORPUSCULAR HEMOGLOBIN 33.9 pg (27.0-31.0); MEAN CORPUSCULAR HGB CONC 32.4 g/dL (33.0-37.0); MEAN PLATELET VOLUME 9.4 fl (7.2-11.7); MONO # 0.7 K/uL (0.0-0.8); MONO % 5.2 % (0.0-10.0); NEUT # 11.7 K/uL (1.8-7.0); NEUT % 82.9 % (50.0-75.0); RBC 2.5 Mil/uL (3.80-5.20); WHITE BLOOD COUNT 14.1 K/uL (4.8-10.8)
[2018-03-19] MEDS ORDERED: Piperacillin/Tazobact 3.375 GM in Sodium Chloride 0.9% 100 ML IVPB STA (23:53)
[2018-03-20] MEDS ORDERED: Vancomycin 1 g Inj ONE (00:05)
[2018-03-20] MEDS ORDERED: ACETAMINOPHEN 650 MG PO PRN (01:23)
[2018-03-20] MEDS: guaiFENesin DM 200 mg-20 mg/10 ml UD PO PRN ×2 (03:07→21:06)
[2018-03-20] MEDS: Piperacillin/Tazobact 3.375 GM in Sodium Chloride 0.9% 100 ML IVPB SCH ×3 (04:40→21:07)
[2018-03-20] MEDS: Azithromycin 500 MG in Sodium Chloride 0.9% 250 ML IVPB SCH (09:07)
--- NOTE | 2018-03-20 10:19 | RAD ---
Date of service: 03/19/2018 HISTORY: ESRD, cough, crackles COMPARISON: Chest radiograph dated 12/05/2017. FINDINGS: LUNGS: Pulmonary vascular congestion with confluent opacities in the right perihilar region and left lung base which may be due to confluent edema versus infiltrate. PLEURA: No significant pleural effusion identified, no pneumothorax apparent. CARDIOVASCULAR: No aortic atherosclerotic calcification present. Normal cardiac size. No pulmonary vascular congestion. OSSEOUS STRUCTURES: No significant abnormalities. VISUALIZED UPPER ABDOMEN: Normal. OTHER FINDINGS: None. IMPRESSION: Right perihilar and left lung base confluent edema versus infiltrates.
[2018-03-20 10:33] LABS: BASO % 0.3 % (0.0-2.0); EOS # 0.1 K/uL (0.0-0.7); EOS % 0.7 % (0.0-4.0); LYMPH # 1.5 K/uL (1.0-4.3); LYMPH % 9.1 % (20.0-40.0); MEAN CELL VOLUME 105.6 fl (81.0-99.0); MEAN CORPUSCULAR HEMOGLOBIN 34.4 pg (27.0-31.0); MEAN CORPUSCULAR HGB CONC 32.6 g/dL (33.0-37.0); MONO # 0.6 K/uL (0.0-0.8); MONO % 3.6 % (0.0-10.0); NEUT # 14.4 K/uL (1.8-7.0); NEUT % 86.3 % (50.0-75.0); PLATELET COUNT 215 K/uL (130-400); RED CELL DISTRIBUTION WIDTH 17.5 % (11.5-14.5); WHITE BLOOD COUNT 16.7 K/uL (4.8-10.8)
[2018-03-20 10:49] LABS: ALBUMIN 3.2 g/dL (3.5-5.0); CALCIUM 8.3 mg/dL (8.4-10.2)
[2018-03-20] MEDS ORDERED: Albuterol-Ipratrop 3 mg / 0.5 (3 ml) UD INH STA (11:03)
--- NOTE | 2018-03-20 11:06 | PCM.RRT ---
<Perla Lopez - Last Filed: 03/20/18 11:25> [employer] Nurse Assessment - Situation [employer] Responder Arrival Time: 10:56 Location: TELEMETRY Room Number: 410-2 [employer] Reason for Call: Chest Pain, O2 Saturation below 90% [employer] Called By: RN - IV IV Inserted during [employer]?: No - Respiratory Oxygen Delivery Method: Nasal Cannula, Mask Received Nebulizer Treatments: Yes (DUONEB X1) Was the Patient Ventilated with Bag/Mask 100% O2?: No Secretions Suctioned?: No Was the Patient Intubated?: No Was the Patient Placed on a Ventilator?: No - Diagnostic Test Ordered EKG: Yes Chest X-Ray: No CT Scan: Yes (CT ANGIO OF CHEST) CPR started during [employer]?: No - Vital Signs Vital Signs: HR: 88 ; O2 SATURATION: 77% ON 4l OF NC - Time [employer] Ended Time [employer] Ended: 11:00 - Vital Signs at end of [employer] Vital Signs at end of [employer]: SATURATING 99% ON 10 L OF O2 ON FACE MASK - Recommendations [employer] Level of Care Recommendations: Remain in current setting I.Reason for [employer] - A) Acute Change in Patient: (Select all that apply): Acute change in SpO2 less (77% ON 4 l nc) Subjective: 27 yo F with ESRD - [employer] called for desaturation at 77% on 4 L NC. Patient reports she is having dyspnea, chest tightness and chest pain along with productive cough. Physical: Saturating now 100% on 10 L face mask Lungs: Clear bilaterally. No wheezes or crackles on exam Heart: S1 and S2 appreciated. Extremities: Warm, well perfused - Constitutional Appears: Non-toxic, In Acute Distress - Eyes Eye Exam: Normal appearance - Respiratory Exam Respiratory Exam: Clear to Ausculation Bilateral, NORMAL BREATHING PATTERN. absent: Decreased Breath Sounds, Prolonged Expiratory Phase, Rales, Rhonchi, Wheezes, Respiratory Distress, Stridor Additional comments: saturating now at 100% on face mask - 10L - Cardiovascular Exam Cardiovascular Exam: +S1, +S2. absent: Clicks, Gallop, Rubs, Murmur - GI/Abdominal Exam GI & Abdominal Exam: Soft, Normal Bowel Sounds - Neurological Exam Neurological Exam: Awake - Extremities Exam Extremities Exam: Normal Capillary Refill, Normal Inspection Plan - Assessment of Findings&Treatment Plan A+P Shortness of breath in patient with ESRD - Rule out PE with CT angio of chest - Duoneb stat - EKG- Normal Patient will be going to dialysis today. <Jeremy Tellez D - Last Filed: 03/20/18 15:47> [employer] Nurse Assessment - Vital Signs Vital Signs: Rapid Response Vital Sign Blood Pressure 170/93 Pulse Rate 88 Respiratory Rate 21 Oxygen Saturation 88 - Vital Signs at end of [employer] Vital Signs at end of [employer]: Rapid Response End Vital Sign Blood Pressure 158/95 Pulse Rate 91 Respiratory Rate 21 O2 Sat by Pulse Oximetry 99 Attending/Attestation - Attestation I have personally seen and examined this patient.: Yes I have fully participated in the care of the patient.: Yes I have reviewed all pertinent clinical information, including history, physical exam and plan: Yes Notes (Text): 03/20/18 15:47 Patient seen and examined with resident. Case discussed and agreed with assessment and plan.
--- NOTE | 2018-03-20 11:30 | CP.PCM.CON ---
History of Present Illness - History of Present Illness History of Present Illness: This patient who is 27 years of age female known to me with end-stage renal disease on maintenance hemodialysis. Monday. Patient presented to the emergency room complaining of cough shortness of breath and the patient has recently delivered baby girl at [facility] which she is still in the hospital because it is a premature baby and the patient known to be noncompliance with the dialysis she missed dialysis and many time. Past medical history Hypertension Noncompliance history Hyperphosphatemia Secondary hyperparathyroidism Social history Patient just delivered baby girl prematurely and also has 2 additional children I believe? Surgical history patient has AV shunt in the left upper arm Review of Systems - Review of Systems Systems not reviewed;Unavailable: Respiratory Distress - Constitutional Constitutional: absent: Anorexia, Chills, Headache - EENT Eyes: absent: Exophthalmos, Pain Nose/Mouth/Throat: absent: Epistaxis, Sore Throat - Cardiovascular Cardiovascular: Diaphoresis, Dyspnea, Orthopnea. absent: Acrocyanosis, Chest Pain, Chest Pain with Activity, Leg Edema - Respiratory Respiratory: Cough, Dyspnea, Chest Congestion. absent: Hemoptysis - Gastrointestinal Gastrointestinal: absent: Abdominal Pain, Coffee Ground Emesis, Excessive Flatus, Nausea - Genitourinary Genitourinary: Nocturia - Musculoskeletal Musculoskeletal: absent: Atrophy, Muscle Weakness, Numbness - Neurological Neurological: absent: As Per HPI, Abnormal Gait, Abnormal Hearing, Abnormal Movements, Abnormal Speech, Behavioral Changes, Burning Sensations, Confusion, Convulsions, Disequilibrium, Dizziness, Numbness, Focal Weakness, Frequent Falls, Headaches, Lack of Coordination, Loss of Vision, Memory Loss, Paresthesias, Radicular Pain, Restless Legs, Sensory Deficit, Syncope, Tingling, Tremor, Vertigo, Weakness, Other Visual Disturbances, Other - Psychiatric Psychiatric: absent: Confusion - Endocrine Endocrine: Fatigue - Hematologic/Lymphatic Hematologic: absent: Easy Bleeding Past Patient History - Infectious Disease Hx of Infectious Diseases: None - Past Medical History & Family History Past Medical History?: Yes - Past Social History Smoking Status: Never Smoked - CARDIAC Hx Hypertension: Yes - PULMONARY Hx Respiratory Disorders: No - NEUROLOGICAL Hx Migraine: Yes - HEENT Hx HEENT Problems: No - RENAL Hx Chronic Kidney Disease: Yes (stage III renal failure) - ENDOCRINE/METABOLIC Hx Endocrine Disorders: No - HEMATOLOGICAL/ONCOLOGICAL Hx Anemia: Yes Hx Human Immunodeficiency Virus (HIV): No - INTEGUMENTARY Hx Dermatological Problems: No - MUSCULOSKELETAL/RHEUMATOLOGICAL Hx Musculoskeletal Disorders: No Hx Falls: No - GASTROINTESTINAL Hx Gastrointestinal Disorders: No - GENITOURINARY/GYNECOLOGICAL Hx Genitourinary Disorders: No - PSYCHIATRIC Hx Psychophysiologic Disorder: No Hx Substance Use: No - SURGICAL HISTORY Hx Surgeries: Yes Hx Vascular Access Device: Yes (Left arm AV fistula) Other/Comment: Hx kidney biopsy - ANESTHESIA Hx Anesthesia: Yes Hx Anesthesia Reactions: No Hx Malignant Hyperthermia: No Meds Allergies/Adverse Reactions: Allergies Allergy/AdvReac Type Severity Reaction Status Date / Time No Known Allergies Allergy Verified 02/04/18 23:44 - Medications Medications: Current Medications Acetaminophen (Tylenol 325mg Tab) 650 mg PO Q8 PRN PRN Reason: Pain, moderate (4-7) Famotidine (Pepcid) 20 mg PO DAILY [facility] Last Admin: 03/20/18 09:08 Dose: 20 mg Guaifenesin/Dextromethorphan (Robitussin Dm) 10 ml PO Q6 PRN PRN Reason: Cough Last Admin: 03/20/18 03:07 Dose: 10 ml Heparin Sodium (Porcine) (Heparin) 5,000 units SC Q8 AALIYAH; Protocol Last Admin: 03/20/18 01:46 Dose: Not Given Home Med (Sucroferric Oxyhydroxide [Velphoro]) 500 mg PO TID AALIYAH Azithromycin 500 mg/ Sodium (Chloride) 250 mls @ 250 mls/hr IVPB DAILY AALIYAH; Protocol Last Admin: 03/20/18 09:07 Dose: 250 mls/hr Piperacillin Sod/Tazobactam (Sod 3.375 gm/ Sodium Chloride) 100 mls @ 100 mls/hr IVPB Q6 AALIYAH; Protocol Last Admin: 03/20/18 09:04 Dose: 100 mls/hr Labetalol HCl (Trandate) 200 mg PO Q12 AALIYAH Last Admin: 03/20/18 10:42 Dose: 200 mg Physical Exam - Constitutional Appears: In Acute Distress - Eye Exam Eye Exam: Conjunctival injection - ENT Exam ENT Exam: absent: Mucous Membranes Moist - Neck Exam Neck exam: Negative for: Lymphadenopathy - Respiratory Exam Respiratory Exam: Rales, Rhonchi. absent: Chest Wall Tenderness - Cardiovascular Exam Cardiovascular Exam: REGULAR RHYTHM. absent: Gallop, JVD, Rubs - GI/Abdominal Exam GI & Abdominal Exam: Normal Bowel Sounds. absent: Guarding - Extremities Exam Extremities exam: Negative for: calf tenderness - Back Exam Back exam: absent: CVA tenderness (L), CVA tenderness (R) - Neurological Exam Neurological exam: Alert Results - Vital Signs Recent Vital Signs: Last Vital Signs Temp 97.5 F L 03/20/18 07:57 Pulse 91 H 03/20/18 11:20 Resp 18 03/20/18 07:57 BP 165/102 H 03/20/18 11:08 Pulse Ox 93 L 03/20/18 07:57 - Labs Result Diagrams: 03/20/18 09:30 03/20/18 09:30 Labs: Laboratory Results - last 24 hr 03/19/18 03/19/18 03/19/18 22:45 22:45 22:45 WBC 14.1 H RBC 2.50 L Hgb 8.5 L Hct 26.1 L MCV 104.6 H D MCH 33.9 H MCHC 32.4 L RDW 17.0 H Plt Count 231 MPV 9.4 Neut % (Auto) 82.9 H Lymph % (Auto) 10.9 L [place] % (Auto) 5.2 Eos % (Auto) 0.7 Baso % (Auto) 0.3 Neut # (Auto) 11.7 H Lymph # (Auto) 1.5 [place] # (Auto) 0.7 Eos # (Auto) 0.1 Baso # (Auto) 0.0 APTT pO2 VBG pH VBG pCO2 VBG HCO3 VBG Total CO2 VBG O2 Sat (Calc) VBG Base Excess VBG Potassium Glucose Lactate FiO2 Sodium 135 Potassium 4.6 Chloride 97 L Carbon Dioxide 27 Anion Gap 16 BUN 52 H Creatinine 10.3 H* D Est GFR ( Amer) 5 Est GFR (Non-Af Amer) 4 Random Glucose 102 Calcium 8.0 L Total Bilirubin AST ALT Alkaline Phosphatase NT-Pro-B Natriuret Pep 68859 H Total Protein Albumin Globulin Albumin/Globulin Ratio Venous Blood Potassium Influenza Typ A,B (EIA) Negative for flu a/b 03/19/18 03/20/18 03/20/18 22:54 09:30 09:30 WBC RBC Hgb Hct MCV MCH MCHC RDW Plt Count MPV Neut % (Auto) Lymph % (Auto) [place] % (Auto) Eos % (Auto) Baso % (Auto) Neut # (Auto) Lymph # (Auto) [place] # (Auto) Eos # (Auto) Baso # (Auto) APTT 29.1 pO2 51 VBG pH 7.49 H VBG pCO2 39 L VBG HCO3 29.3 VBG Total CO2 30.9 H VBG O2 Sat (Calc) 89.0 H VBG Base Excess 5.9 H VBG Potassium 4.7 Glucose 103 Lactate 1.4 FiO2 21.0 Sodium 135.0 137 Potassium 5.1 H Chloride 101.0 99 Carbon Dioxide 26 Anion Gap 17 BUN 56 H Creatinine 11.1 H* Est GFR ( Amer) 5 Est GFR (Non-Af Amer) 4 Random Glucose 96 Calcium 8.3 L Total Bilirubin 0.9 AST 14 ALT 44 Alkaline Phosphatase 112 NT-Pro-B Natriuret Pep Total Protein 6.4 Albumin 3.2 L D Globulin 3.2 Albumin/Globulin Ratio 1.0 Venous Blood Potassium 4.7 Influenza Typ A,B (EIA) 03/20/18 09:30 WBC 16.7 H RBC 2.60 L Hgb 9.0 L Hct 27.5 L MCV 105.6 H MCH 34.4 H MCHC 32.6 L RDW 17.5 H Plt Count 215 MPV 9.0 Neut % (Auto) 86.3 H Lymph % (Auto) 9.1 L [place] % (Auto) 3.6 Eos % (Auto) 0.7 Baso % (Auto) 0.3 Neut # (Auto) 14.4 H Lymph # (Auto) 1.5 [place] # (Auto) 0.6 Eos # (Auto) 0.1 Baso # (Auto) 0.0 APTT pO2 VBG pH VBG pCO2 VBG HCO3 VBG Total CO2 VBG O2 Sat (Calc) VBG Base Excess VBG Potassium Glucose Lactate FiO2 Sodium Potassium Chloride Carbon Dioxide Anion Gap BUN Creatinine Est GFR ( Amer) Est GFR (Non-Af Amer) Random Glucose Calcium Total Bilirubin AST ALT Alkaline Phosphatase NT-Pro-B Natriuret Pep Total Protein Albumin Globulin Albumin/Globulin Ratio Venous Blood Potassium Influenza Typ A,B (EIA) Assessment & Plan (1) Chronic kidney disease requiring chronic dialysis Assessment and Plan: End-stage renal disease patient on dialysis TTS Patient admitted with cough and shortness of breath consistent with volume overload Also chest x-ray reported possible bilateral pneumonia perhaps Rule out pulmonary emboli? History of hyperphosphatemia History of secondary hyperparathyroidism Recent baby girl premature delivery Recommendation Stat hemodialysis I called the dialysis and make it stat they should be here within 2 hours Oxygen management Lasix 120 mg given intravenously Stat CT with IV contrast of the chest rule out PE if Blood gases worsening and her condition worsening she may need intubation while we are waiting for dialysis on the way. Status: Acute (2) Respiratory tract infection Status: Acute
[2018-03-20 11:33] LABS: LYMPHOCYTE 11 % (20-50); MONOCYTE 8 % (0-10); NEUTROPHIL 81 % (42-75); TOTAL CELLS COUNTED 100
[2018-03-20 11:34] LABS: ANISOCYTOSIS SLIGHT; PLATELET ESTIMATE NORMAL (NORMAL)
[2018-03-20 11:35] LABS: GIANT PLATELETS PRESENT; HYPOCHROMIC SLIGHT; LARGE PLATELETS PRESENT; PLATELET CLUMPS PRESENT; TEARDROP CELLS SLIGHT
[2018-03-20] MEDS ORDERED: Iodixanol 320 MG/ML 100 ML BOTTLE IV ONE (11:43)
[2018-03-20] MEDS ORDERED: Sodium Chloride 0.9% 50 ML IV ONE (11:43)
[2018-03-20] MEDS ORDERED: Doxercalciferol 4 mcg/2 ml Inj IV ONE (11:46)
--- NOTE | 2018-03-20 12:34 | CT ---
Date of service: 03/20/2018 PROCEDURE: CT Chest with contrast (Pulmonary Angiogram) HISTORY: r/o PE COMPARISON: None available. TECHNIQUE: Axial computed tomography images were obtained of the chest in the pulmonary arterial phase of enhancement. Coronal and sagittal reformatted images were created and reviewed. Intravenous contrast dose: 99 mL Visipaque 320 Radiation dose: Total exam DLP = 353.26 mGy-cm. This CT exam was performed using one or more of the following dose reduction techniques: Automated exposure control, adjustment of the mA and/or kV according to patient size, and/or use of iterative reconstruction technique. FINDINGS: PULMONARY ARTERIES: Unremarkable. No pulmonary embolism. AORTA: No acute findings. No thoracic aortic aneurysm. No aortic atherosclerotic calcification or mural plaque present. LUNGS: Extensive bilateral infiltrates, predominantly in the lower lobes. PLEURAL SPACES: Trace bilateral pleural effusions. No pneumothorax. HEART: Unremarkable. No cardiomegaly. No significant pericardial effusion. LYMPH NODES: No lymphadenopathy. BONES, CHEST WALL: Unremarkable. No fracture or destructive lesion OTHER FINDINGS: Unremarkable. IMPRESSION: Extensive bilateral infiltrates, predominantly in the lower lobes. Trace bilateral pleural effusions. No pulmonary embolism.
--- NOTE | 2018-03-20 15:50 | CP.PCM.HP ---
History of Present Illness - History of Present Illness History of Present Illness: CC: Cough History of Present Illness: A 27 year old female with a history of ESRD (dialysis T, Th, Sat.) and hypertension who delivered a baby a week ago (which was uneventful) presents to the ED with a productive cough of yellowish-green sputum that began during her last dialysis 3 days ago which has progressively worsened, and also experienced difficulty breathing associated with the cough. In Tele, rapid response called when she was found to be in acute respiratory distress and Hypoxemic, and was started on 100% nonrebreather mask but patient did not tolerate and was placed on oxygen by nasal cannula 5-7 L/min. Denies sick contacts, fever, chills, sweats, and leg swelling. Present on Admission - Present on Admission Any Indicators Present on Admission: Yes Review of Systems - Review of Systems Review of Systems: as Per HPI Past Patient History - Infectious Disease Hx of Infectious Diseases: None - Past Medical History & Family History Past Medical History?: Yes Past Family History: Reviewed and not pertinent - Past Social History Smoking Status: Never Smoked Alcohol: Social Drugs: Denies - CARDIAC Hx Hypertension: Yes - PULMONARY Hx Respiratory Disorders: No - NEUROLOGICAL Hx Migraine: Yes - HEENT Hx HEENT Problems: No - RENAL Hx Chronic Kidney Disease: Yes (stage III renal failure) - ENDOCRINE/METABOLIC Hx Endocrine Disorders: No - HEMATOLOGICAL/ONCOLOGICAL Hx Anemia: Yes Hx Human Immunodeficiency Virus (HIV): No - INTEGUMENTARY Hx Dermatological Problems: No - MUSCULOSKELETAL/RHEUMATOLOGICAL Hx Musculoskeletal Disorders: No Hx Falls: No - GASTROINTESTINAL Hx Gastrointestinal Disorders: No - GENITOURINARY/GYNECOLOGICAL Hx Genitourinary Disorders: No - PSYCHIATRIC Hx Psychophysiologic Disorder: No Hx Substance Use: No - SURGICAL HISTORY Hx Surgeries: Yes Hx Vascular Access Device: Yes (Left arm AV fistula) Other/Comment: Hx kidney biopsy - ANESTHESIA Hx Anesthesia: Yes Hx Anesthesia Reactions: No Hx Malignant Hyperthermia: No Meds Allergies/Adverse Reactions: Allergies Allergy/AdvReac Type Severity Reaction Status Date / Time No Known Allergies Allergy Verified 02/04/18 23:44 Physical Exam - Constitutional Appears: In Acute Distress, Older Than Stated Age - Head Exam Head Exam: ATRAUMATIC, NORMAL INSPECTION, NORMOCEPHALIC - Eye Exam Eye Exam: EOMI, Normal appearance, PERRL Pupil Exam: NORMAL ACCOMODATION, PERRL - ENT Exam ENT Exam: Mucous Membranes Moist, Normal Exam - Neck Exam Neck exam: Positive for: Normal Inspection - Respiratory Exam Respiratory Exam: Accessory Muscle Use, Decreased Breath Sounds, Rales, Wheezes, Respiratory Distress - Cardiovascular Exam Cardiovascular Exam: REGULAR RHYTHM - GI/Abdominal Exam GI & Abdominal Exam: Normal Bowel Sounds, Soft. absent: Tenderness - Rectal Exam Rectal Exam: NORMAL INSPECTION - Exam Exam: Circumcision, NORMAL INSPECTION External exam: NORMAL EXTERNAL EXAM Speculum exam: NORMAL SPECULUM EXAM Bimanual exam: NORMAL BIMANUAL EXAM - Extremities Exam Extremities exam: Positive for: normal inspection - Back Exam Back exam: NORMAL INSPECTION - Neurological Exam Neurological exam: Alert, CN II-XII Intact, Normal Gait, Oriented x3, Reflexes Normal - Psychiatric Exam Psychiatric exam: Normal Affect, Normal Mood - Skin Skin Exam: Dry, Intact, Normal Color, Warm Results - Vital Signs Recent Vital Signs: Last Vital Signs Temp 98.0 F 03/20/18 11:59 Pulse 87 03/20/18 11:59 Resp 18 03/20/18 11:59 BP 159/95 H 03/20/18 11:59 Pulse Ox 96 03/20/18 11:59 - Labs Result Diagrams: 03/23/18 05:25 03/23/18 05:25 Labs: Laboratory Results - last 24 hr 03/19/18 03/19/18 03/19/18 22:45 22:45 22:45 WBC 14.1 H RBC 2.50 L Hgb 8.5 L Hct 26.1 L MCV 104.6 H D MCH 33.9 H MCHC 32.4 L RDW 17.0 H Plt Count 231 MPV 9.4 Neut % (Auto) 82.9 H Lymph % (Auto) 10.9 L [place] % (Auto) 5.2 Eos % (Auto) 0.7 Baso % (Auto) 0.3 Neut # (Auto) 11.7 H Lymph # (Auto) 1.5 [place] # (Auto) 0.7 Eos # (Auto) 0.1 Baso # (Auto) 0.0 Neutrophils % (Manual) Lymphocytes % (Manual) Monocytes % (Manual) Platelet Estimate Plt Clumps, EDTA Large Platelets Giant Platelets Hypochromasia (manual) Anisocytosis (manual) Macrocytosis (manual) Tear Drop Cells APTT pO2 VBG pH VBG pCO2 VBG HCO3 VBG Total CO2 VBG O2 Sat (Calc) VBG Base Excess VBG Potassium Glucose Lactate FiO2 Sodium 135 Potassium 4.6 Chloride 97 L Carbon Dioxide 27 Anion Gap 16 BUN 52 H Creatinine 10.3 H* D Est GFR ( Amer) 5 Est GFR (Non-Af Amer) 4 POC Glucose (mg/dL) Random Glucose 102 Calcium 8.0 L Total Bilirubin AST ALT Alkaline Phosphatase NT-Pro-B Natriuret Pep 19190 H Total Protein Albumin Globulin Albumin/Globulin Ratio Venous Blood Potassium Influenza Typ A,B (EIA) Negative for flu a/b 03/19/18 03/20/18 03/20/18 22:54 09:30 09:30 WBC RBC Hgb Hct MCV MCH MCHC RDW Plt Count MPV Neut % (Auto) Lymph % (Auto) [place] % (Auto) Eos % (Auto) Baso % (Auto) Neut # (Auto) Lymph # (Auto) [place] # (Auto) Eos # (Auto) Baso # (Auto) Neutrophils % (Manual) Lymphocytes % (Manual) Monocytes % (Manual) Platelet Estimate Plt Clumps, EDTA Large Platelets Giant Platelets Hypochromasia (manual) Anisocytosis (manual) Macrocytosis (manual) Tear Drop Cells APTT 29.1 pO2 51 VBG pH 7.49 H VBG pCO2 39 L VBG HCO3 29.3 VBG Total CO2 30.9 H VBG O2 Sat (Calc) 89.0 H VBG Base Excess 5.9 H VBG Potassium 4.7 Glucose 103 Lactate 1.4 FiO2 21.0 Sodium 135.0 137 Potassium 5.1 H Chloride 101.0 99 Carbon Dioxide 26 Anion Gap 17 BUN 56 H Creatinine 11.1 H* Est GFR ( Amer) 5 Est GFR (Non-Af Amer) 4 POC Glucose (mg/dL) Random Glucose 96 Calcium 8.3 L Total Bilirubin 0.9 AST 14 ALT 44 Alkaline Phosphatase 112 NT-Pro-B Natriuret Pep Total Protein 6.4 Albumin 3.2 L D Globulin 3.2 Albumin/Globulin Ratio 1.0 Venous Blood Potassium 4.7 Influenza Typ A,B (EIA) 03/20/18 03/20/18 09:30 14:22 WBC 16.7 H RBC 2.60 L Hgb 9.0 L Hct 27.5 L MCV 105.6 H MCH 34.4 H MCHC 32.6 L RDW 17.5 H Plt Count 215 MPV 9.0 Neut % (Auto) 86.3 H Lymph % (Auto) 9.1 L [place] % (Auto) 3.6 Eos % (Auto) 0.7 Baso % (Auto) 0.3 Neut # (Auto) 14.4 H Lymph # (Auto) 1.5 [place] # (Auto) 0.6 Eos # (Auto) 0.1 Baso # (Auto) 0.0 Neutrophils % (Manual) 81 H Lymphocytes % (Manual) 11 L Monocytes % (Manual) 8 Platelet Estimate Normal Plt Clumps, EDTA Present Large Platelets Present Giant Platelets Present Hypochromasia (manual) Slight Anisocytosis (manual) Slight Macrocytosis (manual) Moderate Tear Drop Cells Slight APTT pO2 VBG pH VBG pCO2 VBG HCO3 VBG Total CO2 VBG O2 Sat (Calc) VBG Base Excess VBG Potassium Glucose Lactate FiO2 Sodium Potassium Chloride Carbon Dioxide Anion Gap BUN Creatinine Est GFR ( Amer) Est GFR (Non-Af Amer) POC Glucose (mg/dL) 92 Random Glucose Calcium Total Bilirubin AST ALT Alkaline Phosphatase NT-Pro-B Natriuret Pep Total Protein Albumin Globulin Albumin/Globulin Ratio Venous Blood Potassium Influenza Typ A,B (EIA) - Imaging and Cardiology Chest x-ray Status: Report reviewed by me Additional comment: Date of service: 03/19/2018 HISTORY: ESRD, cough, crackles COMPARISON: Chest radiograph dated 12/05/2017. FINDINGS: LUNGS: Pulmonary vascular congestion with confluent opacities in the right perihilar region and left lung base which may be due to confluent edema versus infiltrate. PLEURA: No significant pleural effusion identified, no pneumothorax apparent. CARDIOVASCULAR: No aortic atherosclerotic calcification present. Normal cardiac size. No pulmonary vascular congestion. OSSEOUS STRUCTURES: No significant abnormalities. VISUALIZED UPPER ABDOMEN: Normal. OTHER FINDINGS: None. IMPRESSION: Right perihilar and left lung base confluent edema versus infiltrates. CT scan - chest Status: Report reviewed by me Additional comment: with PE Protocol Date of service: 03/20/2018 PROCEDURE: CT Chest with contrast (Pulmonary Angiogram) HISTORY: r/o PE COMPARISON: None available. TECHNIQUE: Axial computed tomography images were obtained of the chest in the pulmonary arterial phase of enhancement. Coronal and sagittal reformatted images were created and reviewed. Intravenous contrast dose: 99 mL Visipaque 320 Radiation dose: Total exam DLP = 353.26 mGy-cm. This CT exam was performed using one or more of the following dose reduction techniques: Automated exposure control, adjustment of the mA and/or kV according to patient size, and/or use of iterative reconstruction technique. FINDINGS: PULMONARY ARTERIES: Unremarkable. No pulmonary embolism. AORTA: No acute findings. No thoracic aortic aneurysm. No aortic atherosclerotic calcification or mural plaque present. LUNGS: Extensive bilateral infiltrates, predominantly in the lower lobes. PLEURAL SPACES: Trace bilateral pleural effusions. No pneumothorax. HEART: Unremarkable. No cardiomegaly. No significant pericardial effusion. LYMPH NODES: No lymphadenopathy. BONES, CHEST WALL: Unremarkable. No fracture or destructive lesion OTHER FINDINGS: Unremarkable. IMPRESSION: Extensive bilateral infiltrates, predominantly in the lower lobes. Trace bilateral pleural effusions. No pulmonary embolism. Assessment & Plan (1) Sepsis Status: Acute Priority: High (2) Type II respiratory failure Status: Acute Priority: High (3) Nosocomial pneumonia Status: Acute Priority: High (4) Chronic kidney disease requiring chronic dialysis Status: Acute Priority: Medium (5) Anemia Status: Acute Priority: Medium - Assessment and Plan (Free Text) Plan: O2 via nasal cannula IV azithromycin and Zosyn adjusted to end-stage renal disease Robitussin with DM as needed DuoNeb every 6 hours as needed Blood and sputum cultures ID consult Continue to monitor in telemetry Nephrology consult for Hemodialysis DVT prophylaxis
[2018-03-20] MEDS: Epoetin Alfa 20000 UNIT/ML Inj IV SCH (17:06)
--- NOTE | 2018-03-20 19:40 | CARD ---
APPROVED REPORT Date of service: 03/20/2018 EKG Measurement Heart [id number] <Conclusion> Normal sinus rhythm Possible anterior infarct, age undetermined Abnormal ECG
--- NOTE | 2018-03-20 19:44 | CARD ---
APPROVED REPORT Date of service: 03/19/2018 EKG Measurement Heart [id number] <Conclusion> Normal sinus rhythm Normal ECG
[2018-03-21] MEDS: Azithromycin 500 MG in Sodium Chloride 0.9% 250 ML IVPB SCH (09:11)
[2018-03-21] MEDS: Piperacillin/Tazobact 3.375 GM in Sodium Chloride 0.9% 100 ML IVPB SCH (09:14)
--- NOTE | 2018-03-21 10:42 | CP.PCM.PN ---
Subjective - Date & Time of Evaluation Date of Evaluation: 03/21/18 Time of Evaluation: 10:40 - Subjective Subjective: Dialysis note She was seen on hemodialysis now. Vital signs stable Complaining of less shortness of breath and less coughing Dialysis nurse at the bedside no nausea or vomiting Objective - Vital Signs/Intake and Output Vital Signs (last 24 hours): Temp Pulse Resp BP Pulse Ox 98.0 F 79 20 147/93 H 97 03/21/18 08:10 03/21/18 08:10 03/21/18 08:10 03/21/18 08:10 03/21/18 08:10 - Medications Medications: Current Medications Acetaminophen (Tylenol 325mg Tab) 650 mg PO Q8 PRN PRN Reason: Pain, moderate (4-7) Last Admin: 03/20/18 21:14 Dose: 650 mg Calcitriol (Rocaltrol) 0.25 mcg PO DAILY [facility] Last Admin: 03/21/18 09:11 Dose: 0.25 mcg Epoetin Brock (Procrit) 6,000 unit IV TTS [facility] Last Admin: 03/20/18 17:06 Dose: 6,000 unit Famotidine (Pepcid) 20 mg PO DAILY [facility] Last Admin: 03/21/18 09:10 Dose: 20 mg Guaifenesin/Dextromethorphan (Robitussin Dm) 10 ml PO Q6 PRN PRN Reason: Cough Last Admin: 03/20/18 21:06 Dose: 10 ml Heparin Sodium (Porcine) (Heparin) 5,000 units SC Q8 AALIYAH; Protocol Last Admin: 03/21/18 09:09 Dose: Not Given Azithromycin 500 mg/ Sodium (Chloride) 250 mls @ 250 mls/hr IVPB DAILY AALIYAH; Protocol Last Admin: 03/21/18 09:11 Dose: 250 mls/hr Piperacillin Sod/Tazobactam (Sod 3.375 gm/ Sodium Chloride) 100 mls @ 100 mls/hr IVPB Q6 AALIYAH; Protocol Last Admin: 03/21/18 09:14 Dose: 100 mls/hr Labetalol HCl (Trandate) 200 mg PO Q12 AALIYAH Last Admin: 03/21/18 09:07 Dose: Not Given Sevelamer Carbonate (Renvela) 2,400 mg PO TIDWM [facility] Last Admin: 03/21/18 09:10 Dose: 2,400 mg - Labs Labs: 03/20/18 09:30 03/20/18 09:30 APTT 29.1 Seconds (25.6-37.1) 03/20/18 09:30 - Constitutional Appears: No Acute Distress - Eye Exam Eye Exam: Conjunctival injection - ENT Exam ENT Exam: Mucous Membranes Moist - Neck Exam Neck Exam: absent: Lymphadenopathy - Respiratory Exam Respiratory Exam: Rhonchi. absent: Chest Wall Tenderness - Cardiovascular Exam Cardiovascular Exam: absent: Gallop, JVD, Rubs - GI/Abdominal Exam GI & Abdominal Exam: Soft, Normal Bowel Sounds - Extremities Exam Extremities Exam: absent: Calf Tenderness - Back Exam Back Exam: absent: CVA tenderness (L), CVA tenderness (R) - Neurological Exam Neurological Exam: Alert - Psychiatric Exam Psychiatric exam: Normal Affect - Skin Skin Exam: absent: Cyanosis Assessment and Plan (1) Chronic kidney disease requiring chronic dialysis Assessment & Plan: End-stage renal disease patient receiving dialysis right now I discussed the order with the dialysis nurse at the bedside. Patient refusing to complete the dialysis order. She is cutting the time today and yesterday as well Bilateral pneumonia Hyperphosphatemia Hyperparathyroidism Anemia Noncompliance Recommendation Continue hemodialysis Monday Antibiotics with a renal dose . EPO for the anemia Phosphorus binder Status: Acute (2) Respiratory tract infection Status: Acute
[2018-03-21] MEDS: guaiFENesin DM 200 mg-20 mg/10 ml UD PO PRN ×2 (12:52→18:34)
--- NOTE | 2018-03-21 16:33 | CP.PCM.CON ---
History of Present Illness - History of Present Illness History of Present Illness: Infectious Disease Consultation Note- Aked to see this patient at the request of for pneumonia and help with antibiotic management. HPI- Patient is a 27 year old female with PMH of ESRD on HD for past 3 years, who was admitted with c/o cough and sob and patietn explains few days ago she delivered a baby girl (premature ) at [facility] . Patient states she feels fine and wants to go to see her baby who is still at hospital. She states she had cough an sosb on admission but feels much better now and wants to go home today. per Notes pt. is noncomplaint with her HD sessions and does not f/u routinely. She states she does not have PMD . She denies any fever or chills, denies any abd. pain, denies any nausea. sttes had diarrhea earlier today but not now. . Past medical history Hypertension Noncompliance history Hyperphosphatemia Secondary hyperparathyroidism Social history Patient just delivered baby girl prematurely and also has 2 additional children I believe? Surgical history patient has AV shunt in the left upper arm Review of Systems - Review of Systems Review of Systems: ROS- denies any fever or chlls, denies any TESFAYE, had cough but she states it has resolved now, had sob but denies it now, denies any chest pain, denies any abd. pain, denies any diarrhea now but states had it earlier today Past Patient History - Infectious Disease Hx of Infectious Diseases: None - Past Medical History & Family History Past Medical History?: Yes - Past Social History Smoking Status: Never Smoked Home Situation {Lives}: With Family - CARDIAC Hx Hypertension: Yes - PULMONARY Hx Respiratory Disorders: No - NEUROLOGICAL Hx Migraine: Yes - HEENT Hx HEENT Problems: No - RENAL Hx Chronic Kidney Disease: Yes (stage III renal failure) - ENDOCRINE/METABOLIC Hx Endocrine Disorders: No - HEMATOLOGICAL/ONCOLOGICAL Hx Anemia: Yes - INTEGUMENTARY Hx Dermatological Problems: No - MUSCULOSKELETAL/RHEUMATOLOGICAL Hx Musculoskeletal Disorders: No Hx Falls: No - GASTROINTESTINAL Hx Gastrointestinal Disorders: No - GENITOURINARY/GYNECOLOGICAL Hx Genitourinary Disorders: No - PSYCHIATRIC Hx Psychophysiologic Disorder: No Hx Substance Use: No - SURGICAL HISTORY Hx Surgeries: Yes Hx Vascular Access Device: Yes (Left arm AV fistula) Other/Comment: Hx kidney biopsy - ANESTHESIA Hx Anesthesia: Yes Hx Anesthesia Reactions: No Hx Malignant Hyperthermia: No Meds Allergies/Adverse Reactions: Allergies Allergy/AdvReac Type Severity Reaction Status Date / Time No Known Allergies Allergy Verified 02/04/18 23:44 - Medications Medications: Current Medications Acetaminophen (Tylenol 325mg Tab) 650 mg PO Q8 PRN PRN Reason: Pain, moderate (4-7) Last Admin: 03/20/18 21:14 Dose: 650 mg Calcitriol (Rocaltrol) 0.25 mcg PO DAILY [facility] Last Admin: 03/21/18 09:11 Dose: 0.25 mcg Epoetin Brock (Procrit) 6,000 unit IV TTS [facility] Last Admin: 03/20/18 17:06 Dose: 6,000 unit Famotidine (Pepcid) 20 mg PO DAILY [facility] Last Admin: 03/21/18 09:10 Dose: 20 mg Guaifenesin/Dextromethorphan (Robitussin Dm) 10 ml PO Q6 PRN PRN Reason: Cough Last Admin: 03/21/18 12:52 Dose: 10 ml Heparin Sodium (Porcine) (Heparin) 5,000 units SC Q8 [facility]; Protocol Last Admin: 03/21/18 09:09 Dose: Not Given Azithromycin 500 mg/ Sodium (Chloride) 250 mls @ 250 mls/hr IVPB DAILY [facility]; Protocol Last Admin: 03/21/18 09:11 Dose: 250 mls/hr Piperacillin Sod/Tazobactam (Sod 2.25 gm/ Sodium Chloride) 100 mls @ 100 mls/hr IVPB Q6 [facility]; Protocol Labetalol HCl (Trandate) 200 mg PO Q12 [facility] Last Admin: 03/21/18 09:07 Dose: Not Given Sevelamer Carbonate (Renvela) 2,400 mg PO TIDWM [facility] Last Admin: 03/21/18 12:50 Dose: Not Given Physical Exam - Constitutional Appears: No Acute Distress - Head Exam Head Exam: ATRAUMATIC - Eye Exam Eye Exam: EOMI, PERRL - ENT Exam ENT Exam: Normal Oropharynx - Neck Exam Neck exam: Positive for: Full Rom - Respiratory Exam Respiratory Exam: NORMAL BREATHING PATTERN Additional comments: good aeration b/l slightly decreased breath sounds at right base onlt no wheezing - Cardiovascular Exam Cardiovascular Exam: RRR, +S1, +S2 - Extremities Exam Extremities exam: Positive for: normal inspection Additional comments: left arm AV shunt - no erythema Results - Vital Signs Recent Vital Signs: Last Vital Signs Temp 98.2 F 03/21/18 16:05 Pulse 97 H 03/21/18 16:05 Resp 20 03/21/18 16:05 BP 160/89 H 03/21/18 16:05 Pulse Ox 96 03/21/18 16:05 - Labs Result Diagrams: 03/22/18 04:50 03/22/18 04:50 Labs: Laboratory Results - last 24 hr 03/21/18 11:42 Phosphorus 3.8 Microbiology 03/20/18 00:00 Blood-Venous Blood Culture - Preliminary NO GROWTH AFTER 48 HOURS 03/19/18 23:45 Blood-Venous Blood Culture - Preliminary NO GROWTH AFTER 48 HOURS Accession No. : [id number] Patient Name / ID : SIRISHA ROSS / [id number] Exam Date : 03/20/2018 11:38:13 ( Approved ) Study Comment : Sex / Age : F / 27Y Creator : Porfirio Esteban MD Dictator : Porfirio Esteban MD Well Logger : Staff Editor : Porfirio Esteban MD Approver2 : Report Date : 03/20/2018 12:29:41 My Comment : Date of service: 03/20/2018 PROCEDURE: CT Chest with contrast (Pulmonary Angiogram) HISTORY: r/o PE COMPARISON: None available. TECHNIQUE: Axial computed tomography images were obtained of the chest in the pulmonary arterial phase of enhancement. Coronal and sagittal reformatted images were created and reviewed. Intravenous contrast dose: 99 mL Visipaque 320 Radiation dose: Total exam DLP = 353.26 mGy-cm. This CT exam was performed using one or more of the following dose reduction techniques: Automated exposure control, adjustment of the mA and/or kV according to patient size, and/or use of iterative reconstruction technique. FINDINGS: PULMONARY ARTERIES: Unremarkable. No pulmonary embolism. AORTA: No acute findings. No thoracic aortic aneurysm. No aortic atherosclerotic calcification or mural plaque present. LUNGS: Extensive bilateral infiltrates, predominantly in the lower lobes. PLEURAL SPACES: Trace bilateral pleural effusions. No pneumothorax. HEART: Unremarkable. No cardiomegaly. No significant pericardial effusion. LYMPH NODES: No lymphadenopathy. BONES, CHEST WALL: Unremarkable. No fracture or destructive lesion OTHER FINDINGS: Unremarkable. IMPRESSION: Extensive bilateral infiltrates, predominantly in the lower lobes. Trace bilateral pleural effusions. No pulmonary embolism. Accession No. : [id number] Patient Name / ID : SIRISHA ROSS / [id number] Exam Date : 03/19/2018 22:44:06 ( Approved ) Study Comment : Sex / Age : F / 27Y Creator : Dictator : Porfirio Esteban MD Well Logger : Staff Editor : Porfirio Esteban MD Approver2 : Report Date : My Comment : Date of service: 03/19/2018 HISTORY: ESRD, cough, crackles COMPARISON: Chest radiograph dated 12/05/2017. FINDINGS: LUNGS: Pulmonary vascular congestion with confluent opacities in the right perihilar region and left lung base which may be due to confluent edema versus infiltrate. PLEURA: No significant pleural effusion identified, no pneumothorax apparent. CARDIOVASCULAR: No aortic atherosclerotic calcification present. Normal cardiac size. No pulmonary vascular congestion. OSSEOUS STRUCTURES: No significant abnormalities. VISUALIZED UPPER ABDOMEN: Normal. OTHER FINDINGS: None. IMPRESSION: Right perihilar and left lung base confluent edema versus infiltrates. Assessment & Plan (1) Chronic kidney disease requiring chronic dialysis Status: Acute (2) Nosocomial pneumonia Status: Acute - Assessment and Plan (Free Text) Assessment: A/P- 27 year old female with PMH of ESRD on HD admitted with cough and sob found to have pulmonary infiltrates and fluid overload based on admission CXR. pt. clinically seems to have improved. pt. is afebrile her leukocytosis is trending down. chest CT and CXR reports noted. blood cx- neg x 2 PLan- has been on zithromax and zosyn for past 3 days. advsie to check sputum cx. advise to check repeat CXR . check Urine legionella GA and check mycoplasma serology. advise at least 2 more days of abx to complete 5 days of IV abx and if continues to improve can be switched to oral abx for 5-7 days after that as outpatient. All labs and imaging and chart notes reviewed. All above d/w patient at length as well and also d/w ADMINISTRATIVE SUPPORT SPECIALIST Angella. Thank you for allowing me to take part in the care of this patient.
--- NOTE | 2018-03-21 21:34 | CP.PCM.PN ---
Subjective - Date & Time of Evaluation Date of Evaluation: 03/21/18 Objective - Vital Signs/Intake and Output Vital Signs (last 24 hours): Temp Pulse Resp BP Pulse Ox 98.3 F 98 H 16 162/79 H 96 03/21/18 19:57 03/21/18 19:57 03/21/18 19:57 03/21/18 19:57 03/21/18 19:57 - Medications Medications: Current Medications Acetaminophen (Tylenol 325mg Tab) 650 mg PO Q8 PRN PRN Reason: Pain, moderate (4-7) Last Admin: 03/20/18 21:14 Dose: 650 mg Benzocaine/Menthol (Cepacol Sore Throat) 1 chucho PO Q4 PRN PRN Reason: Sore Throat Calcitriol (Rocaltrol) 0.25 mcg PO DAILY [facility] Last Admin: 03/21/18 09:11 Dose: 0.25 mcg Epoetin Brock (Procrit) 6,000 unit IV TTS [facility] Last Admin: 03/20/18 17:06 Dose: 6,000 unit Famotidine (Pepcid) 20 mg PO DAILY [facility] Last Admin: 03/21/18 09:10 Dose: 20 mg Guaifenesin/Dextromethorphan (Robitussin Dm) 10 ml PO Q6 PRN PRN Reason: Cough Last Admin: 03/21/18 18:34 Dose: 10 ml Heparin Sodium (Porcine) (Heparin) 5,000 units SC Q8 [facility]; Protocol Last Admin: 03/21/18 17:00 Dose: Not Given Azithromycin 500 mg/ Sodium (Chloride) 250 mls @ 250 mls/hr IVPB DAILY [facility]; Protocol Last Admin: 03/21/18 09:11 Dose: 250 mls/hr Piperacillin Sod/Tazobactam (Sod 2.25 gm/ Sodium Chloride) 100 mls @ 100 mls/hr IVPB Q6 [facility]; Protocol Labetalol HCl (Trandate) 200 mg PO Q12 [facility] Last Admin: 03/21/18 09:07 Dose: Not Given Sevelamer Carbonate (Renvela) 2,400 mg PO TIDWM [facility] Last Admin: 03/21/18 17:00 Dose: Not Given - Labs Labs: 03/20/18 09:30 03/20/18 09:30 APTT 29.1 Seconds (25.6-37.1) 03/20/18 09:30 Assessment and Plan (1) Nosocomial pneumonia Status: Acute (2) Chronic kidney disease requiring chronic dialysis Status: Acute (3) Acute and chronic respiratory failure ([id number]) Status: Acute (4) Anemia Status: Acute
[2018-03-21] MEDS: Benzocaine/Menthol (Cepacol) Lozenge PO PRN (22:24)
--- NOTE | 2018-03-21 23:14 | CARD ---
APPROVED REPORT Date of service: 03/21/2018 EXAM: Two-dimensional and M-mode echocardiogram with Doppler and color Doppler. Other Information Quality : GoodRhythm : NSR INDICATION Dyspnea Hypertension/HCVD 2D DIMENSIONS IVSd1.33 (0.7-1.1cm)LVDd5.34 (3.9-5.9cm) LVOT Diameter2.11 (1.8-2.4cm)PWd1.35 (0.7-1.1cm) IVSs1.60 (0.8-1.2cm)LVDs3.77 (2.5-4.0cm) FS (%) 29.3 %PWs1.55 (0.8-1.2cm) M-Mode DIMENSIONS Left Atrium (MM)4.85 (2.5-4.0cm)IVSd1.47 (0.7-1.1cm) Aortic Root3.44 (2.2-3.7cm)LVDd5.35 (4.0-5.6cm) Aortic Cusp Exc.2.41 (1.5-2.0cm)PWd1.47 (0.7-1.1cm) IVSs1.74 cmFS (%) 38 % LVDs3.32 (2.0-3.8cm)PWs1.85 cm Aortic Valve AoV Peak Zgygkgqa062.4cm/sAoV VTI38.9cmAO Peak GR.16mmHg LVOT Peak Nuwhowav817.8cm/sLVOT VTI29.03cmAO Mean GR.9mmHg JOIE (VMAX)1.61vb5HQE (VTI)1.32cm2 Mitral Valve MV E Onactsvr817.4cm/sMV DECEL URJP247ljVQ A Lowpaqmb08.5cm/s MV JTL512mtD/A ratio1.4MVA (PHT)2.15cm2 TDI Lateral E' Peak V14.10cm/sMedial E' Peak V8.80cm/sE/Lateral E'9.3 E/Medial E'14.9 Tricuspid Valve TR Peak Qyvkgszu807mg/sRAP NDTFYEWQ25dzEtOZ Peak Gr.44mmHg JHHT80wtZt LEFT VENTRICLE The left ventricle is normal size. There is mild concentric left ventricular hypertrophy. The left ventricular systolic function is normal. The estimated ejection fraction is 60-65% No regional wall motion abnormalities noted.. The left ventricular diastolic function is normal. No left ventricle thrombus noted on this study. There is no ventricular septal defect visualized. There is no left ventricular aneurysm. There is no mass noted in the left ventricle. RIGHT VENTRICLE The right ventricle is normal size. There is normal right ventricular wall thickness. The right ventricular systolic function is normal. ATRIA The left atrium is moderately dilated. The right atrium size is normal. The interatrial septum is intact with septal aneurysm. AORTIC VALVE The aortic valve is normal in structure. No aortic regurgitation is present. There is no aortic valvular stenosis. There is no aortic valvular vegetation. MITRAL VALVE The mitral valve is normal in structure. There is no evidence of mitral valve prolapse. There is no mitral valve stenosis. There is mild mitral valve regurgitation noted. TRICUSPID VALVE The tricuspid valve is normal in structure. There is moderate tricuspid valve regurgitation noted. RVSP is calculated at 51 mm Hg. Consistent with mild pulmonary hypertension. There is no tricuspid valve prolapse or vegetation. There is no tricuspid valve stenosis. PULMONIC VALVE The pulmonary valve is normal in structure. There is trace pulmonic valvular regurgitation. There is no pulmonic valvular stenosis. GREAT VESSELS The aortic root is normal in size. The ascending aorta is normal in size. The pulmonary artery is normal. The IVC is normal in size and collapses >50% with inspiration. PERICARDIAL EFFUSION There is no pericardial effusion. There is no pleural effusion. <Conclusion> There is mild concentric left ventricular hypertrophy. The estimated ejection fraction is 60-65% The left ventricular diastolic function is normal. The left atrium is moderately dilated. There is mild mitral valve regurgitation noted. There is moderate tricuspid valve regurgitation noted. RVSP is calculated at 51 mm Hg. Consistent with mild pulmonary hypertension.
[2018-03-22] MEDS: Albuterol-Ipratrop 3 mg / 0.5 (3 ml) UD INH PRN ×2 (00:05→21:11)
[2018-03-22] MEDS: guaiFENesin DM 200 mg-20 mg/10 ml UD PO PRN ×2 (04:54→17:14)
[2018-03-22 06:08] LABS: BASO # 0.1 K/uL (0.0-0.2); BASO % 0.5 % (0.0-2.0); EOS # 0.1 K/uL (0.0-0.7); EOS % 0.7 % (0.0-4.0); HEMOGLOBIN 8.1 g/dL (12.0-16.0); LYMPH # 1.5 K/uL (1.0-4.3); LYMPH % 10.9 % (20.0-40.0); MEAN CELL VOLUME 105.1 fl (81.0-99.0); MEAN CORPUSCULAR HEMOGLOBIN 33.5 pg (27.0-31.0); MEAN CORPUSCULAR HGB CONC 31.9 g/dL (33.0-37.0); MEAN PLATELET VOLUME 9.4 fl (7.2-11.7); MONO # 0.5 K/uL (0.0-0.8); NEUT # 11.4 K/uL (1.8-7.0); NEUT % 83.9 % (50.0-75.0); RBC 2.41 Mil/uL (3.80-5.20); RED CELL DISTRIBUTION WIDTH 17.4 % (11.5-14.5); WHITE BLOOD COUNT 13.6 K/uL (4.8-10.8)
[2018-03-22 07:09] LABS: CALCIUM 7.7 mg/dL (8.4-10.2)
[2018-03-22] MEDS: Sucralfate 1 gm/10 ml Oral Susp UD PO SCH ×2 (08:38→17:09)
[2018-03-22] MEDS: Azithromycin 500 MG in Sodium Chloride 0.9% 250 ML IVPB SCH (08:40)
--- NOTE | 2018-03-22 08:46 | CP.PCM.PN ---
Subjective - Date & Time of Evaluation Date of Evaluation: 03/22/18 Time of Evaluation: 08:43 - Subjective Subjective: Patient awake and conscious feeling much better Less congestion Less coughing Vital signs noted with blood pressure is still elevated Objective - Vital Signs/Intake and Output Vital Signs (last 24 hours): Temp Pulse Resp BP Pulse Ox 97.3 F L 80 20 159/90 H 97 03/22/18 08:40 03/22/18 08:40 03/22/18 08:40 03/22/18 08:40 03/22/18 08:40 - Medications Medications: Current Medications Acetaminophen (Tylenol 325mg Tab) 650 mg PO Q8 PRN PRN Reason: Pain, moderate (4-7) Last Admin: 03/20/18 21:14 Dose: 650 mg Albuterol/Ipratropium (Duoneb 3 Mg/0.5 Mg (3 Ml) Ud) 3 ml INH RQ6 PRN PRN Reason: Shortness of Breath Last Admin: 03/22/18 00:05 Dose: 3 ml Amlodipine Besylate (Norvasc) 5 mg PO ONCE ONE Stop: 03/22/18 08:43 Benzocaine/Menthol (Cepacol Sore Throat) 1 chucho PO Q4 PRN PRN Reason: Sore Throat Last Admin: 03/21/18 22:24 Dose: 1 chucho Calcitriol (Rocaltrol) 0.25 mcg PO DAILY [facility] Last Admin: 03/22/18 08:39 Dose: 0.25 mcg Epoetin Brock (Procrit) 6,000 unit IV TTS [facility] Last Admin: 03/20/18 17:06 Dose: 6,000 unit Famotidine (Pepcid) 20 mg PO DAILY [facility] Last Admin: 03/22/18 08:39 Dose: 20 mg Guaifenesin/Dextromethorphan (Robitussin Dm) 10 ml PO Q6 PRN PRN Reason: Cough Last Admin: 03/22/18 04:54 Dose: 10 ml Heparin Sodium (Porcine) (Heparin) 5,000 units SC Q8 [facility]; Protocol Last Admin: 03/22/18 08:38 Dose: Not Given Azithromycin 500 mg/ Sodium (Chloride) 250 mls @ 250 mls/hr IVPB DAILY [facility]; Protocol Last Admin: 03/22/18 08:40 Dose: 250 mls/hr Piperacillin Sod/Tazobactam (Sod 2.25 gm/ Sodium Chloride) 100 mls @ 100 mls/hr IVPB Q6 [facility]; Protocol Last Admin: 03/22/18 04:30 Dose: 100 mls/hr Labetalol HCl (Trandate) 200 mg PO Q12 [facility] Last Admin: 03/22/18 08:39 Dose: 200 mg Sevelamer Carbonate (Renvela) 2,400 mg PO TIDWM [facility] Last Admin: 03/22/18 08:39 Dose: Not Given Sucralfate (Carafate Oral Susp) 1 gm PO BID [facility] Last Admin: 03/22/18 08:38 Dose: 1 gm - Labs Labs: 03/22/18 04:50 03/22/18 04:50 APTT 29.1 Seconds (25.6-37.1) 03/20/18 09:30 - Constitutional Appears: No Acute Distress - Eye Exam Eye Exam: Conjunctival injection - ENT Exam ENT Exam: Mucous Membranes Moist - Neck Exam Neck Exam: absent: Lymphadenopathy - Respiratory Exam Respiratory Exam: Rhonchi. absent: Wheezes - Cardiovascular Exam Cardiovascular Exam: REGULAR RHYTHM. absent: Gallop, JVD - GI/Abdominal Exam GI & Abdominal Exam: Soft - Extremities Exam Extremities Exam: absent: Calf Tenderness - Back Exam Back Exam: absent: CVA tenderness (L), CVA tenderness (R) - Neurological Exam Neurological Exam: Alert - Psychiatric Exam Psychiatric exam: Anxious - Skin Skin Exam: absent: Cyanosis Assessment and Plan (1) Chronic kidney disease requiring chronic dialysis Assessment & Plan: End-stage renal disease on maintenance hemodialysis TTS Bilateral pneumonia Volume overloaded appears to be resolving slowly Hypertension still elevated Status post premature delivery History of noncompliance Recommendation Hemodialysis for 3 hours however she is cutting her dialysis most of the time Continue phosphorus binders Will change calcitriol to Sensipar Renal diet Antibiotics with a renal dose Status: Acute (2) Respiratory tract infection Status: Acute
[2018-03-22] MEDS: Epoetin Alfa 20000 UNIT/ML Inj IV SCH (13:19)
--- NOTE | 2018-03-22 16:24 | RAD ---
Date of service: 03/22/2018 HISTORY: f/u pna COMPARISON: Chest radiograph dated 03/19/2018. TECHNIQUE: Chest PA and lateral FINDINGS: LUNGS: Similar appearance of right lung infiltrates. Questionable improved aeration involving the left lower lobe infiltrates. PLEURA: No significant pleural effusion identified. No pneumothorax apparent. CARDIOVASCULAR: No aortic atherosclerotic calcification present. Normal cardiac size. No pulmonary vascular congestion. OSSEOUS STRUCTURES: No significant abnormalities. VISUALIZED UPPER ABDOMEN: Normal. OTHER FINDINGS: None. IMPRESSION: Similar appearance of right lung infiltrates. Question improved aeration of on the left lower lobe infiltrates.
[2018-03-22 17:09] LABS: HEPATITIS B SURFACE AG Negative (NEGATIVE)
[2018-03-22 17:14] LABS: HEPATITIS B CORE AB NEGATIVE (NEGATIVE)
[2018-03-22 17:26] LABS: HEPATITIS C ANTIBODY NEGATIVE (NEGATIVE)
--- NOTE | 2018-03-22 21:59 | CP.PCM.PN ---
Subjective - Date & Time of Evaluation Date of Evaluation: 03/22/18 Time of Evaluation: 16:55 Objective - Vital Signs/Intake and Output Vital Signs (last 24 hours): Temp Pulse Resp BP Pulse Ox 98.9 F 88 16 135/88 94 L 03/22/18 19:53 03/22/18 21:00 03/22/18 19:53 03/22/18 19:53 03/22/18 19:53 - Medications Medications: Current Medications Acetaminophen (Tylenol 325mg Tab) 650 mg PO Q8 PRN PRN Reason: Pain, moderate (4-7) Last Admin: 03/22/18 16:30 Dose: 650 mg Albuterol/Ipratropium (Duoneb 3 Mg/0.5 Mg (3 Ml) Ud) 3 ml INH RQ6 PRN PRN Reason: Shortness of Breath Last Admin: 03/22/18 21:11 Dose: 3 ml Benzocaine/Menthol (Cepacol Sore Throat) 1 chucho PO Q4 PRN PRN Reason: Sore Throat Last Admin: 03/21/18 22:24 Dose: 1 chucho Calcitriol (Rocaltrol) 0.25 mcg PO DAILY [facility] Last Admin: 03/22/18 08:39 Dose: 0.25 mcg Cinacalcet (Sensipar) 30 mg PO DAILY [facility] Last Admin: 03/22/18 17:10 Dose: 30 mg Epoetin Brock (Procrit) 6,000 unit IV TTS [facility] Last Admin: 03/22/18 13:19 Dose: 6,000 unit Famotidine (Pepcid) 20 mg PO DAILY [facility] Last Admin: 03/22/18 08:39 Dose: 20 mg Guaifenesin/Dextromethorphan (Robitussin Dm) 10 ml PO Q6 PRN PRN Reason: Cough Last Admin: 03/22/18 17:14 Dose: 10 ml Heparin Sodium (Porcine) (Heparin) 5,000 units SC Q8 [facility]; Protocol Last Admin: 03/22/18 17:09 Dose: Not Given Azithromycin 500 mg/ Sodium (Chloride) 250 mls @ 250 mls/hr IVPB DAILY [facility]; Protocol Last Admin: 03/22/18 08:40 Dose: 250 mls/hr Piperacillin Sod/Tazobactam (Sod 2.25 gm/ Sodium Chloride) 100 mls @ 100 mls/hr IVPB Q6 [facility]; Protocol Last Admin: 03/22/18 21:34 Dose: 100 mls/hr Ibuprofen (Motrin Tab) 400 mg PO Q6 PRN PRN Reason: Headache Last Admin: 03/22/18 21:58 Dose: 400 mg Labetalol HCl (Trandate) 200 mg PO Q12 [facility] Last Admin: 03/22/18 20:47 Dose: 200 mg Sevelamer Carbonate (Renvela) 2,400 mg PO TIDWM [facility] Last Admin: 03/22/18 17:09 Dose: Not Given Sucralfate (Carafate Oral Susp) 1 gm PO BID [facility] Last Admin: 03/22/18 17:09 Dose: 1 gm - Labs Labs: 03/22/18 04:50 03/22/18 04:50 APTT 29.1 Seconds (25.6-37.1) 03/20/18 09:30 Assessment and Plan (1) Nosocomial pneumonia Status: Acute (2) Chronic kidney disease requiring chronic dialysis Status: Acute (3) Acute and chronic respiratory failure ([id number]) Status: Acute (4) Anemia Status: Acute
[2018-03-23 05:15] VITALS: RESP 18
[2018-03-23 05:48] LABS: BASO % 0.4 % (0.0-2.0); EOS # 0.1 K/uL (0.0-0.7); EOS % 1.1 % (0.0-4.0); LYMPH # 1.7 K/uL (1.0-4.3); LYMPH % 14.8 % (20.0-40.0); MEAN CELL VOLUME 104.8 fl (81.0-99.0); MEAN CORPUSCULAR HEMOGLOBIN 33.7 pg (27.0-31.0); MEAN CORPUSCULAR HGB CONC 32.2 g/dL (33.0-37.0); MEAN PLATELET VOLUME 9.1 fl (7.2-11.7); MONO # 0.6 K/uL (0.0-0.8); NEUT # 9.3 K/uL (1.8-7.0); NEUT % 78.7 % (50.0-75.0); RBC 2.38 Mil/uL (3.80-5.20); RED CELL DISTRIBUTION WIDTH 17.2 % (11.5-14.5); WHITE BLOOD COUNT 11.8 K/uL (4.8-10.8)
[2018-03-23 05:53] LABS: ALBUMIN 2.9 g/dL (3.5-5.0); CALCIUM 8.3 mg/dL (8.4-10.2)
[2018-03-23] MEDS: Azithromycin 500 MG in Sodium Chloride 0.9% 250 ML IVPB SCH (09:11)
[2018-03-23] MEDS: Sucralfate 1 gm/10 ml Oral Susp UD PO SCH (09:15)
[2018-03-23] MEDS: Benzocaine/Menthol (Cepacol) Lozenge PO PRN (09:30)
[2018-03-23] MEDS: guaiFENesin DM 200 mg-20 mg/10 ml UD PO PRN (09:30)
--- NOTE | 2018-03-23 10:09 | CP.PCM.PN ---
Subjective - Date & Time of Evaluation Date of Evaluation: 03/23/18 Time of Evaluation: 10:09 - Subjective Subjective: ID Note- Patient seen and examined today. Patient states she feels much better and denies any sob. pt. states she wants to go home and go ssee her girl who is premature and still at hospital. Objective - Vital Signs/Intake and Output Vital Signs (last 24 hours): Temp Pulse Resp BP Pulse Ox 97.3 F L 84 18 150/85 94 L 03/23/18 08:10 03/23/18 08:10 03/23/18 08:10 03/23/18 08:10 03/23/18 08:10 - Medications Medications: Current Medications Acetaminophen (Tylenol 325mg Tab) 650 mg PO Q8 PRN PRN Reason: Pain, moderate (4-7) Last Admin: 03/22/18 16:30 Dose: 650 mg Albuterol/Ipratropium (Duoneb 3 Mg/0.5 Mg (3 Ml) Ud) 3 ml INH RQ6 PRN PRN Reason: Shortness of Breath Last Admin: 03/22/18 21:11 Dose: 3 ml Benzocaine/Menthol (Cepacol Sore Throat) 1 chucho PO Q4 PRN PRN Reason: Sore Throat Last Admin: 03/23/18 09:30 Dose: 1 chucho Calcitriol (Rocaltrol) 0.25 mcg PO DAILY [facility] Last Admin: 03/23/18 09:12 Dose: 0.25 mcg Cinacalcet (Sensipar) 30 mg PO DAILY [facility] Last Admin: 03/23/18 09:14 Dose: 30 mg Epoetin Brock (Procrit) 6,000 unit IV TTS [facility] Last Admin: 03/22/18 13:19 Dose: 6,000 unit Famotidine (Pepcid) 20 mg PO DAILY [facility] Last Admin: 03/23/18 09:15 Dose: 20 mg Guaifenesin/Dextromethorphan (Robitussin Dm) 10 ml PO Q6 PRN PRN Reason: Cough Last Admin: 03/23/18 09:30 Dose: 10 ml Heparin Sodium (Porcine) (Heparin) 5,000 units SC Q8 [facility]; Protocol Last Admin: 03/23/18 09:15 Dose: Not Given Azithromycin 500 mg/ Sodium (Chloride) 250 mls @ 250 mls/hr IVPB DAILY [facility]; Protocol Last Admin: 03/23/18 09:11 Dose: 250 mls/hr Piperacillin Sod/Tazobactam (Sod 2.25 gm/ Sodium Chloride) 100 mls @ 100 mls/hr IVPB Q6 [facility]; Protocol Last Admin: 03/23/18 09:11 Dose: 100 mls/hr Ibuprofen (Motrin Tab) 400 mg PO Q6 PRN PRN Reason: Headache Last Admin: 03/22/18 21:58 Dose: 400 mg Labetalol HCl (Trandate) 200 mg PO Q12 [facility] Last Admin: 03/23/18 09:13 Dose: 200 mg Sevelamer Carbonate (Renvela) 2,400 mg PO TIDWM [facility] Last Admin: 03/23/18 08:12 Dose: 2,400 mg Sucralfate (Carafate Oral Susp) 1 gm PO BID [facility] Last Admin: 03/23/18 09:15 Dose: 1 gm - Labs Labs: - Additional Findings Additional findings: - Constitutional Appears: No Acute Distress - Head Exam Head Exam: ATRAUMATIC - Eye Exam Eye Exam: EOMI, PERRL - ENT Exam ENT Exam: Normal Oropharynx - Neck Exam Neck exam: Positive for: Full Rom - Respiratory Exam Respiratory Exam: NORMAL BREATHING PATTERN Additional comments: good aeration b/l slightly decreased breath sounds at right base only no wheezing - Cardiovascular Exam Cardiovascular Exam: RRR, +S1, +S2 - Extremities Exam Extremities exam: Positive for: normal inspection Additional comments: left arm AV shunt - no erythema Laboratory Results - last 72 hr 03/20/18 03/21/18 03/21/18 14:22 11:42 11:42 WBC RBC Hgb Hct MCV MCH MCHC RDW Plt Count MPV Neut % (Auto) Lymph % (Auto) [place] % (Auto) Eos % (Auto) Baso % (Auto) Neut # (Auto) Lymph # (Auto) [place] # (Auto) Eos # (Auto) Baso # (Auto) Sodium Potassium Chloride Carbon Dioxide Anion Gap BUN Creatinine Est GFR ( Amer) Est GFR (Non-Af Amer) POC Glucose (mg/dL) 92 Random Glucose Calcium Phosphorus 3.8 Magnesium Total Bilirubin AST ALT Alkaline Phosphatase Troponin I Total Protein Albumin Globulin Albumin/Globulin Ratio PTH Intact Whole Molec 544 H Hep Bs Antigen Hep Bs Antibody, Quant Hep B Core IgM Ab Hepatitis C Antibody 03/22/18 03/22/18 03/22/18 04:50 04:50 05:00 WBC 13.6 H RBC 2.41 L Hgb 8.1 L Hct 25.3 L MCV 105.1 H MCH 33.5 H MCHC 31.9 L RDW 17.4 H Plt Count 221 MPV 9.4 Neut % (Auto) 83.9 H Lymph % (Auto) 10.9 L [place] % (Auto) 4.0 Eos % (Auto) 0.7 Baso % (Auto) 0.5 Neut # (Auto) 11.4 H Lymph # (Auto) 1.5 [place] # (Auto) 0.5 Eos # (Auto) 0.1 Baso # (Auto) 0.1 Sodium 136 Potassium 4.5 Chloride 101 Carbon Dioxide 23 Anion Gap 17 BUN 35 H Creatinine 7.7 H* D Est GFR ( Amer) 8 Est GFR (Non-Af Amer) 6 POC Glucose (mg/dL) Random Glucose 122 H Calcium 7.7 L Phosphorus 5.2 H Magnesium 1.9 Total Bilirubin 0.8 AST 19 ALT 38 Alkaline Phosphatase 110 Troponin I 0.0160 Total Protein 6.0 L Albumin 3.0 L Globulin 3.0 Albumin/Globulin Ratio 1.0 PTH Intact Whole Molec Hep Bs Antigen Hep Bs Antibody, Quant Hep B Core IgM Ab Hepatitis C Antibody 03/22/18 03/22/18 03/23/18 10:49 10:49 05:25 WBC 11.8 H RBC 2.38 L Hgb 8.0 L Hct 24.9 L MCV 104.8 H MCH 33.7 H MCHC 32.2 L RDW 17.2 H Plt Count 219 MPV 9.1 Neut % (Auto) 78.7 H Lymph % (Auto) 14.8 L [place] % (Auto) 5.0 Eos % (Auto) 1.1 Baso % (Auto) 0.4 Neut # (Auto) 9.3 H Lymph # (Auto) 1.7 [place] # (Auto) 0.6 Eos # (Auto) 0.1 Baso # (Auto) 0.0 Sodium Potassium Chloride Carbon Dioxide Anion Gap BUN Creatinine Est GFR ( Amer) Est GFR (Non-Af Amer) POC Glucose (mg/dL) Random Glucose Calcium Phosphorus Magnesium Total Bilirubin AST ALT Alkaline Phosphatase Troponin I Total Protein Albumin Globulin Albumin/Globulin Ratio PTH Intact Whole Molec Hep Bs Antigen Negative Hep Bs Antibody, Quant 747 Hep B Core IgM Ab Negative Hepatitis C Antibody Negative 03/23/18 05:25 WBC RBC Hgb Hct MCV MCH MCHC RDW Plt Count MPV Neut % (Auto) Lymph % (Auto) [place] % (Auto) Eos % (Auto) Baso % (Auto) Neut # (Auto) Lymph # (Auto) [place] # (Auto) Eos # (Auto) Baso # (Auto) Sodium 135 Potassium 4.5 Chloride 102 Carbon Dioxide 25 Anion Gap 13 BUN 29 H Creatinine 6.2 H Est GFR ( Amer) 10 Est GFR (Non-Af Amer) 8 POC Glucose (mg/dL) Random Glucose 83 Calcium 8.3 L Phosphorus Magnesium Total Bilirubin 0.7 AST 19 ALT 41 Alkaline Phosphatase 104 Troponin I Total Protein 5.8 L Albumin 2.9 L Globulin 2.9 Albumin/Globulin Ratio 1.0 PTH Intact Whole Molec Hep Bs Antigen Hep Bs Antibody, Quant Hep B Core IgM Ab Hepatitis C Antibody Microbiology 03/20/18 00:00 Blood-Venous Blood Culture - Preliminary NO GROWTH AFTER 3 DAYS 03/19/18 23:45 Blood-Venous Blood Culture - Preliminary NO GROWTH AFTER 3 DAYS 03/21/18 16:48 Blood-Venous Blood Culture - Preliminary NO GROWTH AFTER 24 HOURS 03/21/18 21:18 Sputum Gram Stain - Final Assessment and Plan (1) Chronic kidney disease requiring chronic dialysis Status: Acute (2) Nosocomial pneumonia Status: Acute - Assessment and Plan (Free Text) Assessment: A/P- 27 year old female with PMH of ESRD on HD admitted with cough and sob found to h ave pulmonary infiltrates and fluid overload based on admission CXR. pt. clinically seems to have improved. pt. is afebrile her leukocytosis resolved. chest CT and CXR reports noted. blood cx- neg x 2 repeat CXR- as per report somewhat improved. PLan- has been on zithromax and zosyn for past 4 days. advise to check repeat CXR as outpatietn in 1 week. can be switched to oral abx starting tomm for 7 days. advise either zithromax or augmentin oral tabs for 7 days. advised pt. to follow up in few days with her PCP. advised if she develops any fever or sob or chills to return to ER. Patient verbalizes full understanding of all above and agrees with above plan of care. All above d/w [employer] Benita as well.
[2018-03-23] MEDS: Albuterol-Ipratrop 3 mg / 0.5 (3 ml) UD INH PRN (11:43)
[2018-03-23 12:41] VITALS: BP 148/90; PULSE 82; TEMP 97.2; O2SAT 90
--- NOTE | 2018-03-23 13:11 | PQF ---
PROVIDER RESPONSE TEXT: Nosocomial Pneumonia. Recently discharged from [facility]. REVIEWER QUERY TEXT: Pneumonia Specificity Pneumonia is documented in the Medical Record. Please specify the type of pneumonia and the causative organism (includes probable or suspected) if known after the wok up is completed Type: -- Aspiration pneumonia (please also specify the aspirate) - Please indicate if the aspiration is postprocedure -- Bacterial (please document suspected or probable organism) -- Bronchopneumonia (please document suspected or probable organism) -- Interstitial pneumonia -- Viral -- Other, please specify 03/[address]: Extensive bilateral infiltrates, predominantly in the lower lobes.Trace bilateral pleu ral effusions.No pulmonary embolism. (2) Chronic kidney disease requiring chronic dialysis Status: Acute (3) Acute and chronic respiratory failure ([id number]) Status: Acute Priority: High (4) Anemia Status: Acute IVAB, nebs The patient's Clinical Indicators include: -- Query created by: Maria A Tillman on 03/21/2018 3:22 PM Electronically signed by: Cassandra Reveles MD 03/23/2018 1:07 PM
--- NOTE | 2018-03-23 14:12 | CP.PCM.PCO ---
Assessment & Plan - Assessment and Plan (Free Text) Assessment: patient seen and examined this morning, feels well, denies cp, fever chills, sob chest xray report noted pt. seen by and cleared for discharge cont. Zithromax 500 mg po daily x 7 more days per ID recommendation f/u chest xray next week pt. has f/u appointment next Monday w/ jose luis cordero f/u w/ , cont HD T,,Sat
--- NOTE | 2018-03-24 01:00 | CP.PCM.DIS ---
Provider - Provider Date of Admission: 03/19/18 23:57 Attending physician: Cassandra Reveles MD Consults: 03/20/18 01:29 Nephrology Consult Routine Comment: Consulting Provider: Go Pichardo Consulting Physician: Go Pichardo Reason for Consult: Hemodialysis 03/20/18 02:32 Social Work Referral Routine Comment: Dialysis Physician Instructions: Reason For Exam: Dialysis 03/21/18 13:20 Infectious Disease Consult Routine Comment: Consulting Provider: Faheem Suazo Consulting Physician: Faheem Suazo Reason for Consult: Pneumonia, Respiratory Failure Time Spent in preparation of Discharge (in minutes): 25 Diagnosis - Discharge Diagnosis (1) Sepsis Status: Acute Priority: High (2) Type II respiratory failure Status: Acute Priority: High (3) Nosocomial pneumonia Status: Acute Priority: High (4) Chronic kidney disease requiring chronic dialysis Status: Acute Priority: Medium (5) Anemia Status: Acute Priority: Medium Hospital Course - Lab Results Lab Results: Micro Results 03/19/18 23:45 Blood-Venous Blood Culture - Preliminary NO GROWTH AFTER 4 DAYS 03/20/18 00:00 Blood-Venous Blood Culture - Preliminary NO GROWTH AFTER 4 DAYS 03/21/18 16:48 Blood-Venous Blood Culture - Preliminary NO GROWTH AFTER 48 HOURS 03/21/18 21:18 Sputum Gram Stain - Final Most Recent Lab Values WBC 11.8 K/uL (4.8-10.8) H 03/23/18 05:25 RBC 2.38 Mil/uL (3.80-5.20) L 03/23/18 05:25 Hgb 8.0 g/dL (12.0-16.0) L 03/23/18 05:25 Hct 24.9 % (34.0-47.0) L 03/23/18 05:25 MCV 104.8 fl (81.0-99.0) H 03/23/18 05:25 MCH 33.7 pg (27.0-31.0) H 03/23/18 05:25 MCHC 32.2 g/dL (33.0-37.0) L 03/23/18 05:25 RDW 17.2 % (11.5-14.5) H 03/23/18 05:25 Plt Count 219 K/uL (130-400) 03/23/18 05:25 MPV 9.1 fl (7.2-11.7) 03/23/18 05:25 Neut % (Auto) 78.7 % (50.0-75.0) H 03/23/18 05:25 Lymph % (Auto) 14.8 % (20.0-40.0) L 03/23/18 05:25 [place] % (Auto) 5.0 % (0.0-10.0) 03/23/18 05:25 Eos % (Auto) 1.1 % (0.0-4.0) 03/23/18 05:25 Baso % (Auto) 0.4 % (0.0-2.0) 03/23/18 05:25 Neut # (Auto) 9.3 K/uL (1.8-7.0) H 03/23/18 05:25 Lymph # (Auto) 1.7 K/uL (1.0-4.3) 03/23/18 05:25 [place] # (Auto) 0.6 K/uL (0.0-0.8) 03/23/18 05:25 Eos # (Auto) 0.1 K/uL (0.0-0.7) 03/23/18 05:25 Baso # (Auto) 0.0 K/uL (0.0-0.2) 03/23/18 05:25 Neutrophils % (Manual) 81 % (42-75) H 03/20/18 09:30 Lymphocytes % (Manual) 11 % (20-50) L 03/20/18 09:30 Monocytes % (Manual) 8 % (0-10) 03/20/18 09:30 Platelet Estimate Normal (NORMAL) 03/20/18 09:30 Plt Clumps, EDTA Present 03/20/18 09:30 Large Platelets Present 03/20/18 09:30 Giant Platelets Present 03/20/18 09:30 Hypochromasia (manual) Slight 03/20/18 09:30 Anisocytosis (manual) Slight 03/20/18 09:30 Macrocytosis (manual) Moderate 03/20/18 09:30 Tear Drop Cells Slight 03/20/18 09:30 APTT 29.1 Seconds (25.6-37.1) 03/20/18 09:30 pO2 51 mm/Hg (30-55) 03/19/18 22:54 VBG pH 7.49 (7.32-7.43) H 03/19/18 22:54 VBG pCO2 39 mmHg (40-60) L 03/19/18 22:54 VBG HCO3 29.3 mmol/L 03/19/18 22:54 VBG Total CO2 30.9 mmol/L (22-28) H 03/19/18 22:54 VBG O2 Sat (Calc) 89.0 % (40-65) H 03/19/18 22:54 VBG Base Excess 5.9 mmol/L (0.0-2.0) H 03/19/18 22:54 VBG Potassium 4.7 mmol/L (3.6-5.2) 03/19/18 22:54 Sodium 135.0 mmol/L (132-148) 03/19/18 22:54 Chloride 101.0 mmol/L (98-107) 03/19/18 22:54 Glucose 103 mg/dL (65-105) 03/19/18 22:54 Lactate 1.4 mmol/L (0.7-2.1) 03/19/18 22:54 FiO2 21.0 % 03/19/18 22:54 Sodium 135 mmol/l (132-148) 03/23/18 05:25 Potassium 4.5 MMOL/L (3.6-5.0) 03/23/18 05:25 Chloride 102 mmol/L (98-107) 03/23/18 05:25 Carbon Dioxide 25 mmol/L (22-30) 03/23/18 05:25 Anion Gap 13 (10-20) 03/23/18 05:25 BUN 29 mg/dl (7-17) H 03/23/18 05:25 Creatinine 6.2 mg/dl (0.7-1.2) H 03/23/18 05:25 Est GFR ( Amer) 10 03/23/18 05:25 Est GFR (Non-Af Amer) 8 03/23/18 05:25 POC Glucose (mg/dL) 92 mg/dL (65-110) 03/20/18 14:22 Random Glucose 83 mg/dL (65-105) 03/23/18 05:25 Calcium 8.3 mg/dL (8.4-10.2) L 03/23/18 05:25 Phosphorus 5.2 mg/dl (2.5-4.5) H 03/22/18 04:50 Magnesium 1.9 MG/DL (1.6-2.3) 03/22/18 04:50 Total Bilirubin 0.7 mg/dl (0.2-1.3) 03/23/18 05:25 AST 19 U/L (14-36) 03/23/18 05:25 ALT 41 U/L (9-52) 03/23/18 05:25 Alkaline Phosphatase 104 U/L (38-126) 03/23/18 05:25 Troponin I 0.0160 ng/mL (0.00-0.120) 03/22/18 05:00 NT-Pro-B Natriuret Pep 75578 pg/ml (0-450) H 03/19/18 22:45 Total Protein 5.8 G/DL (6.3-8.2) L 03/23/18 05:25 Albumin 2.9 g/dL (3.5-5.0) L 03/23/18 05:25 Globulin 2.9 gm/dL (2.2-3.9) 03/23/18 05:25 Albumin/Globulin Ratio 1.0 (1.0-2.1) 03/23/18 05:25 PTH Intact Whole Molec 544 pg/mL (14-64) H 03/21/18 11:42 Venous Blood Potassium 4.7 mmol/L (3.6-5.2) 03/19/18 22:54 Hep Bs Antigen Negative (NEGATIVE) 03/22/18 10:49 Hep Bs Antibody, Quant 747 mIU/mL (>or=10) 03/22/18 10:49 Hep B Core IgM Ab Negative (NEGATIVE) 03/22/18 10:49 Hepatitis C Antibody Negative (NEGATIVE) 03/22/18 10:49 Influenza Typ A,B (EIA) Negative for flu a/b (NEGATIVE) 03/19/18 22:45 Discharge Exam - Head Exam Head Exam: ATRAUMATIC, NORMAL INSPECTION, NORMOCEPHALIC Discharge Plan - Discharge Medications Prescriptions: Sucralfate [Carafate Oral Susp] 1 gm PO BID #10 udc Sevelamer Carbonate [Renvela] 2,400 mg PO TIDWM #30 tab guaiFENesin/Dextromethorphan [Robitussin DM] 10 ml PO Q6 PRN #20 udc PRN Reason: Cough Calcitriol [Rocaltrol] 0.25 mcg PO DAILY #30 sgl Cinacalcet [Sensipar] 30 mg PO DAILY #30 tab Azithromycin [Zithromax] 500 mg PO DAILY #7 tablet - Follow Up Plan Condition: FAIR Disposition: HOME/ ROUTINE Instructions: Pneumonia, Adult (DC), Acute Kidney Failure (DC), Anemia of Chronic Disease (DC) Additional Instructions: follow up appt with on mon.03/28/18 11:15am Referrals: [facility] [Provider Group] Kolby Conti MD [Staff Provider] - Go Pichardo MD [Staff Provider] -
== END 2018-03-23 16:05 | disposition home or self-care (01) | DRG 776 ==
LOC: H.ER 22:01 → H.ERHOLD 23:57 → H.TEL 03-20 00:58
PROVIDERS: ADMIT Internal Medicine; ATTEND Internal Medicine
PROC: 5A1D70Z Performance of Urinary Filtration, Intermittent, Less than 6 Hours Per Day (ICD-10-PCS; principal; 2018-03-20)
PROC: 5A1D70Z Performance of Urinary Filtration, Intermittent, Less than 6 Hours Per Day (ICD-10-PCS; 2018-03-21)
PROC: 5A1D70Z Performance of Urinary Filtration, Intermittent, Less than 6 Hours Per Day (ICD-10-PCS; 2018-03-22)
DX: O85 Puerperal sepsis (principal); J96.21 Acute and chronic respiratory failure with hypoxia; J18.9 Pneumonia, unspecified organism; N18.6 End stage renal disease; I12.0 Hypertensive chronic kidney disease with stage 5 chronic kidney disease or end stage renal disease; J44.0 Chronic obstructive pulmonary disease with (acute) lower respiratory infection; N25.81 Secondary hyperparathyroidism of renal origin; O99.53 Diseases of the respiratory system complicating the puerperium; Z91.19 Patient's noncompliance with other medical treatment and regimen; Z99.2 Dependence on renal dialysis; O90.89 Other complications of the puerperium, not elsewhere classified; Z91.15 Patient's noncompliance with renal dialysis; O90.81 Anemia of the puerperium; D63.8 Anemia in other chronic diseases classified elsewhere; E83.39 Other disorders of phosphorus metabolism; E87.70 Fluid overload, unspecified; Y95 Nosocomial condition; G43.909 Migraine, unspecified, not intractable, without status migrainosus; R19.7 Diarrhea, unspecified; R07.9 Chest pain, unspecified

== ENCOUNTER 2018-03-31 14:14 | Inpatient (IN) | payer MEDICARE, MEDICAID ==
[2018-03-31] MEDS ORDERED: Sodium Chloride 0.9% 1,000 ML IV STA (14:33)
[2018-03-31] MEDS ORDERED: Albuterol-Ipratrop 3 mg / 0.5 (3 ml) UD IH STA ×2 (14:33→15:22)
--- NOTE | 2018-03-31 14:37 | ED PDOC ---
HPI: SOB/CHF/COPD Time Seen by Provider: 03/31/18 14:23 Chief Complaint (Nursing): Cough, Cold, Congestion History Per: Patient Onset/Duration Of Symptoms: Days (2) Exacerbating Factor(s): Exertion Severity: Moderate Associated Symptoms: Productive Cough, Leg/Calf Pain. denies: Fever Additional Complaint(s): SOB on exertion assoc with weakness x 2 days. Cough productive orange sputum. Denies fever or chest pain. C/o bilat calf pain. S/p vaginal delivery 3 weeks ago. Denies vaginal bleeding. - Risk Factors PE Risk Factors: Pos: Post- Past Medical History Vital Signs: Last Vital Signs Temp Pulse Resp BP Pulse Ox 98 03/31/18 14:27 - Medical History PMH: Anemia, HTN, Migraine, End Stage Renal Disease (STAGE 5), Chronic Kidney Disease (stage III renal failure) Denies: HIV - Family History Family History: States: Unknown Family Hx - Immunization History Hx Tetanus Toxoid Vaccination: (UTD) - Home Medications Home Medications: Ambulatory Orders Medication Instructions Recorded Acetaminophen [Acetaminophen 8 650 mg PO Q8 PRN #21 tablet.er 11/01/17 Hour] Labetalol [Trandate] 200 mg PO Q12 03/20/18 Sucroferric Oxyhydroxide [Velphoro] 500 mg PO TID 03/20/18 Calcitriol [Rocaltrol] 0.25 mcg PO DAILY #30 sgl 03/23/18 Sucralfate [Carafate Oral Susp] 1 gm PO BID #10 udc 03/23/18 - Allergies Allergies/Adverse Reactions: Allergies Allergy/AdvReac Type Severity Reaction Status Date / Time No Known Allergies Allergy Verified 03/31/18 14:26 Review of Systems ROS Statement: Except As Marked, All Systems Reviewed And Found Negative Cardiovascular: Negative for: Chest Pain Respiratory: Positive for: Cough, Shortness of Breath, Sputum Genitourinary Female: Negative for: Vaginal Bleeding Musculoskeletal: Positive for: Leg Pain Physical Exam - Reviewed Nursing Documentation Reviewed: Yes Vital Signs Reviewed: Yes - Physical Exam Appears: Positive for: Non-toxic Head Exam: Positive for: ATRAUMATIC, NORMAL INSPECTION, NORMOCEPHALIC Skin: Positive for: Normal Color, Warm, DRY Eye Exam: Positive for: EOMI, Normal appearance, PERRL ENT: Positive for: Normal ENT Inspection Neck: Positive for: Normal, Painless ROM Cardiovascular/Chest: Positive for: Regular Rate, Rhythm Respiratory: Positive for: Rhonchi. Negative for: Wheezing, Respiratory Distress Gastrointestinal/Abdominal: Positive for: Normal Exam, Soft Back: Positive for: Normal Inspection Extremity: Positive for: Normal ROM. Negative for: Calf Tenderness, Swelling Neurologic/Psych: Positive for: Alert, Oriented - Laboratory Results Result Diagrams: 03/31/18 14:30 03/31/18 14:30 - ECG O2 Sat by Pulse Oximetry: 98 - Progress Re-evaluation Time: 15:45 Condition: Re-examined - Critical Care Total Time (In Min): 30 Documented Critical Care: Time excludes all time spent performint seperately billable procedures Medical Decision Making Medical Decision Making: SOB, dyspnea on exertion. Given h/o recent post-, will obtain duplex studies lower ext. Also considering pneumonia with cough and sputum production. Has dialysis today, will check electrolytes and Hgb. CXR reveals worsening right sided infiltrate, O2 desaturates to 89%. Will tx for HCAP with Vanco and Zosyn as well as nebs and IV solumedrol. Will place on vapotherm Discussed with Dr. Reveles, accepting MD requesting ICU admit due to worsening infiltrate and hypoxemia. Discussed with Dr. Daniel, covering [employer], will evaluate pt. Disposition - Clinical Impression Clinical Impression: Nosocomial pneumonia, Chronic kidney disease with end stage renal failure on dialysis, Sepsis - Patient ED Disposition Is Patient to be Admitted: Yes - Disposition Disposition Time: 15:44 Condition: GUARDED - Pt Status Changed To: Hospital Disposition Of: Inpatient - Admit Certification Admit to Inpatient:: After my assessment, the patient will require hospitalization for at least two midnights. This is because of the severity of symptoms shown, intensity of services needed, and/or the medical risk in this patient being treated as an outpatient. - POA Present On Arrival: None
[2018-03-31 14:40] LABS: VENOUS BLOOD GAS BASE EXCESS 10.6 mmol/L (0.0-2.0); VENOUS BLOOD GAS PCO2 41 mmHg (40-60); VENOUS BLOOD GAS PO2 58 mm/Hg (30-55); VENOUS BLOOD PH 7.53 (7.32-7.43)
[2018-03-31] MEDS ORDERED: Albuterol-Ipratrop 3 mg / 0.5 (3 ml) UD ONE (14:42)
[2018-03-31 14:52] LABS: BASO # 0.1 K/uL (0.0-0.2); EOS # 0.2 K/uL (0.0-0.7); EOS % 1.9 % (0.0-4.0); LYMPH # 1.6 K/uL (1.0-4.3); LYMPH % 16.7 % (20.0-40.0); MEAN CELL VOLUME 100.2 fl (81.0-99.0); MEAN CORPUSCULAR HEMOGLOBIN 32.6 pg (27.0-31.0); MEAN CORPUSCULAR HGB CONC 32.6 g/dL (33.0-37.0); MEAN PLATELET VOLUME 8.7 fl (7.2-11.7); MONO # 0.8 K/uL (0.0-0.8); MONO % 8.1 % (0.0-10.0); NEUT % 72.3 % (50.0-75.0); RBC 3.29 Mil/uL (3.80-5.20); RED CELL DISTRIBUTION WIDTH 16.8 % (11.5-14.5); WHITE BLOOD COUNT 9.7 K/uL (4.8-10.8)
--- NOTE | 2018-03-31 15:03 | RAD ---
HISTORY: cough COMPARISON: Chest x-ray performed 03/22/18, CTA chest performed 03/20/18 TECHNIQUE: Chest, one view. FINDINGS: LUNGS: Persistent worsening consolidations with lower lobe predominance, right greater than left. PLEURA: Probable small bilateral pleural effusions. No definite pneumothorax . CARDIOVASCULAR: Cardiomegaly. No significant atherosclerotic calcification present. OSSEOUS STRUCTURES: No acute osseous abnormality identified. VISUALIZED UPPER ABDOMEN: Unremarkable. OTHER FINDINGS: None. IMPRESSION: Persistent worsening bilateral consolidations with lower lobe predominance, right greater than left. Probable small bilateral pleural effusions. Cardiomegaly.
[2018-03-31 15:07] LABS: HEMOGLOBIN 10.7 g/dL (12.0-16.0)
[2018-03-31 15:14] LABS: TROPONIN I 0.026 ng/mL (0.00-0.120)
[2018-03-31] MEDS ORDERED: Vancomycin 1 g Inj ONE (15:27)
[2018-03-31 15:33] LABS: ALB/GLOB RATIO 1.1 (1.0-2.1); ALBUMIN 3.3 g/dL (3.5-5.0); CALCIUM 8.5 mg/dL (8.4-10.2)
[2018-03-31 15:48] LABS: ABG ALLEN TEST YES; ARTERIAL BLOOD GAS HCO3 33.2 mmol/L (21-28); ARTERIAL BLOOD GAS HEMOGLOBIN 10.3 g/dL (11.7-17.4); ARTERIAL BLOOD GAS O2 CAPACITY 14.1 mL/dL (16-24); ARTERIAL BLOOD GAS O2 CONTENT 13.8 ML/dL (15-23); ARTERIAL BLOOD GAS O2 SAT 98.1 % (95-98); ARTERIAL BLOOD GAS PCO2 40 mm/Hg (35-45); ARTERIAL BLOOD GAS PH 7.54 (7.35-7.45); ARTERIAL BLOOD GAS PO2 79 mm/Hg (80-100); ARTERIAL BLOOD GAS TCO2 35.4 mmol/L (22-28)
--- NOTE | 2018-03-31 16:12 | CP.PCM.CON ---
History of Present Illness - History of Present Illness History of Present Illness: 27 y/o female with PMH ESRD on HD ( started 3 years ago , last HD session today 03/31 with TTHS schedule), HTN,non compliance history with dialysis,secondary hypoparathyroidism presented to ER with worsening SOB, cough and sputum producti on . She delivered a premature baby at 31 weeks gestational age 2 weeks ago and she was admitted with multifocal pneumonia in the hospital 03/20 until 03/23. She was treated with 5 days IV Zosyn and Zithromax and discharged on 7 days more of PO zithromycin . Patient states that she was compliant with her antibiotics upon discharged but did not improve completely . Today she had her HD in AM and later she decided to come to ER for evaluation due to [id number] SOB, cough and yellowish sputum production . She denies any fever , chills, night sweats. Denies any sick contacts or recent travels.Denies any nausea, vomiting , abdominal or chest pain , denies any dysuria or changes with bowel movements Allergies ; NKDA PMH ; ESRD on HD ( started 3 years ago ), HTN,non compliance history with dial ysis,secondary hypoparathyroidism [id number] ; See Med rec Surgery : YVES MILLER Family history ; Not contributory Family histyory ; Livesd i [place] with boyfriend and her daughters 9 and 12 yearsd old, delivered a premature baby at 31 week gestational age 2 weeks ago , denies smoking , ETOH or drug abuse, house PMD ; Was supposed to follow up with [facility] ROS ; 14 point review of system negative except above + cough, SOB , yellowish sputum production Denies fever , chills ER course In ER found to be SOB with RR 30 BP 162/108 HR 99 Saturating 98 % on face mask , afebrile CXR shows bilateral pneumonia, RML, RLL and LLL WBC 97 Hgb 10 VBG reported as lactic acid 1.4 PO@ 58 PCO2 40 ph 7.5 ABG PO2 79 PCO2 40 HCO3 33 Ph 7.54 She so was given Solumedrol 125 mg IV x 1 dose , Albuterol INh 3 ml x2 , and ordered Vancopmycin 1 G IV and Zosyn IV Review of Systems - Review of Systems All systems: reviewed and no additional remarkable complaints except Past Patient History - Infectious Disease Hx of Infectious Diseases: None - Past Medical History & Family History Past Medical History?: Yes - Past Social History Smoking Status: Never Smoked - CARDIAC Hx Hypertension: Yes - PULMONARY Hx Respiratory Disorders: No - NEUROLOGICAL Hx Migraine: Yes - HEENT Hx HEENT Problems: No - RENAL Hx Chronic Kidney Disease: Yes (stage III renal failure) - ENDOCRINE/METABOLIC Hx Endocrine Disorders: No - HEMATOLOGICAL/ONCOLOGICAL Hx Anemia: Yes Hx Human Immunodeficiency Virus (HIV): No - INTEGUMENTARY Hx Dermatological Problems: No - MUSCULOSKELETAL/RHEUMATOLOGICAL Hx Musculoskeletal Disorders: No Hx Falls: No - GASTROINTESTINAL Hx Gastrointestinal Disorders: No - GENITOURINARY/GYNECOLOGICAL Hx Genitourinary Disorders: No - PSYCHIATRIC Hx Psychophysiologic Disorder: No Hx Substance Use: No - SURGICAL HISTORY Hx Surgeries: Yes Hx Vascular Access Device: Yes (Left arm AV fistula) Other/Comment: Hx kidney biopsy - ANESTHESIA Hx Anesthesia: Yes Hx Anesthesia Reactions: No Hx Malignant Hyperthermia: No Meds Allergies/Adverse Reactions: Allergies Allergy/AdvReac Type Severity Reaction Status Date / Time No Known Allergies Allergy Verified 03/31/18 14:26 - Medications Medications: Current Medications Sodium Chloride (Sodium Chloride 0.9%) 1,000 mls @ 125 mls/hr IV .Q8H STA Stop: 03/31/18 22:32 Last Admin: 03/31/18 14:44 Dose: 125 mls/hr Vancomycin HCl 1 gm/ Sodium (Chloride) 250 mls @ 166.667 mls/hr IVPB STAT STA; Protocol Stop: 03/31/18 16:51 Last Admin: 03/31/18 15:35 Dose: 166.667 mls/hr Piperacillin Sod/Tazobactam (Sod 2.25 gm/ Sodium Chloride) 100 mls @ 100 mls/hr IVPB STAT STA; Protocol Stop: 03/31/18 16:21 Physical Exam - Constitutional Appears: Non-toxic Additional comments: stated age young female in no respiratory distress, saturating 94 -96 % on face mask , speaking in full sentences - Head Exam Head Exam: ATRAUMATIC, NORMAL INSPECTION, NORMOCEPHALIC - Eye Exam Eye Exam: EOMI, Normal appearance, PERRL Pupil Exam: NORMAL ACCOMODATION - ENT Exam ENT Exam: Mucous Membranes Moist, Normal Exam - Neck Exam Neck exam: Positive for: Full Rom, Normal Inspection - Respiratory Exam Respiratory Exam: absent: Wheezes, Stridor Additional comments: decreased breath sound on the right base no wheezing , no rhonchi no accessory muscle use speaking in full sentences - Cardiovascular Exam Cardiovascular Exam: REGULAR RHYTHM, RRR, +S1, +S2. absent: JVD - GI/Abdominal Exam GI & Abdominal Exam: Normal Bowel Sounds, Soft. absent: Distended, Guarding, Rebound, Tenderness - Rectal Exam Rectal Exam: Deferred - Extremities Exam Extremities exam: Positive for: normal capillary refill, normal inspection, pedal pulses present. Negative for: pedal edema Additional comments: Left UE AVF - Back Exam Back exam: NORMAL INSPECTION - Neurological Exam Neurological exam: Alert, CN II-XII Intact, Oriented x3 - Psychiatric Exam Psychiatric exam: Normal Affect, Normal Mood - Skin Skin Exam: Dry, Intact, Normal Color, Warm Results - Vital Signs Recent Vital Signs: Last Vital Signs Temp 97.8 F 03/31/18 14:41 Pulse 99 H 03/31/18 14:41 Resp 30 H 03/31/18 14:41 BP 162/108 H 03/31/18 14:41 Pulse Ox 98 03/31/18 15:45 - Labs Result Diagrams: 03/31/18 14:30 03/31/18 14:30 Labs: Laboratory Results - last 24 hr 03/31/18 03/31/18 03/31/18 14:30 14:30 14:30 WBC 9.7 RBC 3.29 L Hgb 10.7 L D Hct 32.9 L MCV 100.2 H D MCH 32.6 H MCHC 32.6 L RDW 16.8 H Plt Count 334 D MPV 8.7 Neut % (Auto) 72.3 Lymph % (Auto) 16.7 L [place] % (Auto) 8.1 Eos % (Auto) 1.9 Baso % (Auto) 1.0 Neut # (Auto) 7.0 Lymph # (Auto) 1.6 [place] # (Auto) 0.8 Eos # (Auto) 0.2 Baso # (Auto) 0.1 D-Dimer, Quantitative 571 H pCO2 pO2 HCO3 ABG pH ABG Total CO2 ABG O2 Saturation ABG O2 Content ABG Base Excess ABG Hemoglobin ABG Carboxyhemoglobin POC ABG HHb (Measured) ABG Methemoglobin ABG O2 Capacity Rudy Test VBG pH VBG pCO2 VBG HCO3 VBG Total CO2 VBG O2 Sat (Calc) VBG Base Excess VBG Potassium A-a O2 Difference Hgb O2 Saturation Glucose Lactate FiO2 Sodium 140 Potassium 4.1 Chloride 95 L Carbon Dioxide 32 H Anion Gap 17 BUN 31 H Creatinine 7.5 H* D Est GFR ( Amer) 8 Est GFR (Non-Af Amer) 6 Random Glucose 99 Calcium 8.5 Total Bilirubin 0.5 AST 18 ALT 26 Alkaline Phosphatase 112 Troponin I 0.0260 Total Protein 6.3 Albumin 3.3 L Globulin 3.0 Albumin/Globulin Ratio 1.1 Venous Blood Potassium 03/31/18 03/31/18 14:32 15:45 WBC RBC Hgb Hct MCV MCH MCHC RDW Plt Count MPV Neut % (Auto) Lymph % (Auto) [place] % (Auto) Eos % (Auto) Baso % (Auto) Neut # (Auto) Lymph # (Auto) [place] # (Auto) Eos # (Auto) Baso # (Auto) D-Dimer, Quantitative pCO2 40 pO2 58 H 79 L HCO3 33.2 H ABG pH 7.54 H ABG Total CO2 35.4 H ABG O2 Saturation 98.1 H ABG O2 Content 13.8 L ABG Base Excess 10.7 H ABG Hemoglobin 10.3 L ABG Carboxyhemoglobin 2.0 H POC ABG HHb (Measured) 1.8 ABG Methemoglobin 1.2 ABG O2 Capacity 14.1 L Rudy Test Yes VBG pH 7.53 H VBG pCO2 41 VBG HCO3 33.1 VBG Total CO2 35.6 H VBG O2 Sat (Calc) 94.1 H VBG Base Excess 10.6 H VBG Potassium 3.9 A-a O2 Difference 584.0 Hgb O2 Saturation 95.0 Glucose 95 Lactate 1.4 FiO2 21.0 100.0 Sodium 138.0 Potassium Chloride 102.0 Carbon Dioxide Anion Gap BUN Creatinine Est GFR ( Amer) Est GFR (Non-Af Amer) Random Glucose Calcium Total Bilirubin AST ALT Alkaline Phosphatase Troponin I Total Protein Albumin Globulin Albumin/Globulin Ratio Venous Blood Potassium 3.9 - Imaging and Cardiology CXR Additional comment: Persistent worsening bilateral consolidations with lower lobe predominance, right greater than left. Probable small bilateral pleural effusions. Cardiomegaly. Assessment & Plan - Assessment and Plan (Free Text) Assessment: 27 y/o f with PMH ESRD on HD, HTN, secondary hypoparathyroidiosm was diagnosed with multifocal pneumonia on 03/20 treated with 5 days IV antibiotics and discharged home on 03/23 with 7 days of Po zithromycin presented with continuing SOB, cough and yellowish sputum, production CXR showed: Worsening infiltrates bilateral worse on lowerrt lobes R>L patient is afebrile with normal WBC count and lactic acid 1.4 ABG PO2 879 PCO2 40 ph 7.54 HCO3 33 Patient saturating 954 - 96 % on face mask and speaking in ffull sentences At this point recommend telemetry monitoring and starting treatment for HACP . No need for ICU management or care. Send blood, sputum , urine cx Continue venti mask Start Mucinex , NaCl INH , Duonebs Consult ID Dr. Suazo Start Vanco , Zosyn and zithromycin Continue care as per PMD
[2018-03-31] MEDS ORDERED: Sodium Chloride 3% for Inhalation 4 ML VIAL.NEB IH PRN (16:25)
--- NOTE | 2018-03-31 16:55 | CP.CCUPN ---
CCU Objective - Vital Signs / Intake & Output Vital Signs (Last 4 hours): Vital Signs Temp Pulse Resp BP Pulse Ox 03/31/18 16:18 28 H 03/31/18 15:45 98 03/31/18 14:41 97.8 F 99 H 30 H 162/108 H 96 03/31/18 14:27 98 Intake and Output (Last 8hrs): Intake & Output 03/31/18 03/31/18 03/31/18 06:59 14:59 22:59 Weight 189 lb - Medications Active Medications: Active Medications Generic Name Dose Route Start Last Admin Trade Name Freq PRN Reason Stop Dose Admin Sodium Chloride 1,000 mls @ 125 mls/hr 03/31/18 14:33 03/31/18 14:44 Sodium Chloride 0.9% IV 03/31/18 22:32 125 mls/hr .Q8H STA Administration Vancomycin HCl 1 gm/ Sodium 250 mls @ 166.667 mls/hr 03/31/18 15:22 03/31/18 15:35 Chloride IVPB 03/31/18 16:51 166.667 mls/hr STAT STA Administration Protocol - Patient Studies Lab Studies: Lab Studies 03/31/18 03/31/18 03/31/18 Range/Units 15:45 14:32 14:30 WBC (4.8-10.8) K/uL RBC (3.80-5.20) Mil/uL Hgb (12.0-16.0) g/dL Hct (34.0-47.0) % MCV (81.0-99.0) fl MCH (27.0-31.0) pg MCHC (33.0-37.0) g/dL RDW (11.5-14.5) % Plt Count (130-400) K/uL MPV (7.2-11.7) fl Neut % (Auto) (50.0-75.0) % Lymph % (Auto) (20.0-40.0) % [place] % (Auto) (0.0-10.0) % Eos % (Auto) (0.0-4.0) % Baso % (Auto) (0.0-2.0) % Neut # (Auto) (1.8-7.0) K/uL Lymph # (Auto) (1.0-4.3) K/uL [place] # (Auto) (0.0-0.8) K/uL Eos # (Auto) (0.0-0.7) K/uL Baso # (Auto) (0.0-0.2) K/uL D-Dimer, Quantitative 571 H (0-230) ng/mlDDU pCO2 40 (35-45) mm/Hg pO2 79 L 58 H (30-55) mm/Hg HCO3 33.2 H (21-28) mmol/L ABG pH 7.54 H (7.35-7.45) ABG Total CO2 35.4 H (22-28) mmol/L ABG O2 Saturation 98.1 H (95-98) % ABG O2 Content 13.8 L (15-23) ML/dL ABG Base Excess 10.7 H (-2.0-3.0) mmol/L ABG Hemoglobin 10.3 L (11.7-17.4) g/dL ABG Carboxyhemoglobin 2.0 H (0.5-1.5) % POC ABG HHb (Measured) 1.8 (0.0-5.0) % ABG Methemoglobin 1.2 (0.0-3.0) % ABG O2 Capacity 14.1 L (16-24) mL/dL Rudy Test Yes VBG pH 7.53 H (7.32-7.43) VBG pCO2 41 (40-60) mmHg VBG HCO3 33.1 mmol/L VBG Total CO2 35.6 H (22-28) mmol/L VBG O2 Sat (Calc) 94.1 H (40-65) % VBG Base Excess 10.6 H (0.0-2.0) mmol/L VBG Potassium 3.9 (3.6-5.2) mmol/L A-a O2 Difference 584.0 mm/Hg Hgb O2 Saturation 95.0 (95.0-98.0) % Glucose 95 (65-105) mg/dL Lactate 1.4 (0.7-2.1) mmol/L FiO2 100.0 21.0 % Sodium 138.0 (132-148) mmol/l Potassium (3.6-5.0) MMOL/L Chloride 102.0 (98-107) mmol/L Carbon Dioxide (22-30) mmol/L Anion Gap (10-20) BUN (7-17) mg/dl Creatinine (0.7-1.2) mg/dl Est GFR ( Amer) Est GFR (Non-Af Amer) Random Glucose (65-105) mg/dL Calcium (8.4-10.2) mg/dL Total Bilirubin (0.2-1.3) mg/dl AST (14-36) U/L ALT (9-52) U/L Alkaline Phosphatase (38-126) U/L Troponin I (0.00-0.120) ng/mL Total Protein (6.3-8.2) G/DL Albumin (3.5-5.0) g/dL Globulin (2.2-3.9) gm/dL Albumin/Globulin Ratio (1.0-2.1) Venous Blood Potassium 3.9 (3.6-5.2) mmol/L 03/31/18 03/31/18 Range/Units 14:30 14:30 WBC 9.7 (4.8-10.8) K/uL RBC 3.29 L (3.80-5.20) Mil/uL Hgb 10.7 L D (12.0-16.0) g/dL Hct 32.9 L (34.0-47.0) % MCV 100.2 H D (81.0-99.0) fl MCH 32.6 H (27.0-31.0) pg MCHC 32.6 L (33.0-37.0) g/dL RDW 16.8 H (11.5-14.5) % Plt Count 334 D (130-400) K/uL MPV 8.7 (7.2-11.7) fl Neut % (Auto) 72.3 (50.0-75.0) % Lymph % (Auto) 16.7 L (20.0-40.0) % [place] % (Auto) 8.1 (0.0-10.0) % Eos % (Auto) 1.9 (0.0-4.0) % Baso % (Auto) 1.0 (0.0-2.0) % Neut # (Auto) 7.0 (1.8-7.0) K/uL Lymph # (Auto) 1.6 (1.0-4.3) K/uL [place] # (Auto) 0.8 (0.0-0.8) K/uL Eos # (Auto) 0.2 (0.0-0.7) K/uL Baso # (Auto) 0.1 (0.0-0.2) K/uL D-Dimer, Quantitative (0-230) ng/mlDDU pCO2 (35-45) mm/Hg pO2 (30-55) mm/Hg HCO3 (21-28) mmol/L ABG pH (7.35-7.45) ABG Total CO2 (22-28) mmol/L ABG O2 Saturation (95-98) % ABG O2 Content (15-23) ML/dL ABG Base Excess (-2.0-3.0) mmol/L ABG Hemoglobin (11.7-17.4) g/dL ABG Carboxyhemoglobin (0.5-1.5) % POC ABG HHb (Measured) (0.0-5.0) % ABG Methemoglobin (0.0-3.0) % ABG O2 Capacity (16-24) mL/dL Rudy Test VBG pH (7.32-7.43) VBG pCO2 (40-60) mmHg VBG HCO3 mmol/L VBG Total CO2 (22-28) mmol/L VBG O2 Sat (Calc) (40-65) % VBG Base Excess (0.0-2.0) mmol/L VBG Potassium (3.6-5.2) mmol/L A-a O2 Difference mm/Hg Hgb O2 Saturation (95.0-98.0) % Glucose (65-105) mg/dL Lactate (0.7-2.1) mmol/L FiO2 % Sodium 140 (132-148) mmol/l Potassium 4.1 (3.6-5.0) MMOL/L Chloride 95 L (98-107) mmol/L Carbon Dioxide 32 H (22-30) mmol/L Anion Gap 17 (10-20) BUN 31 H (7-17) mg/dl Creatinine 7.5 H* D (0.7-1.2) mg/dl Est GFR ( Amer) 8 Est GFR (Non-Af Amer) 6 Random Glucose 99 (65-105) mg/dL Calcium 8.5 (8.4-10.2) mg/dL Total Bilirubin 0.5 (0.2-1.3) mg/dl AST 18 (14-36) U/L ALT 26 (9-52) U/L Alkaline Phosphatase 112 (38-126) U/L Troponin I 0.0260 (0.00-0.120) ng/mL Total Protein 6.3 (6.3-8.2) G/DL Albumin 3.3 L (3.5-5.0) g/dL Globulin 3.0 (2.2-3.9) gm/dL Albumin/Globulin Ratio 1.1 (1.0-2.1) Venous Blood Potassium (3.6-5.2) mmol/L Laboratory Results - last 24 hr 03/31/18 03/31/18 03/31/18 14:30 14:30 14:30 WBC 9.7 RBC 3.29 L Hgb 10.7 L D Hct 32.9 L MCV 100.2 H D MCH 32.6 H MCHC 32.6 L RDW 16.8 H Plt Count 334 D MPV 8.7 Neut % (Auto) 72.3 Lymph % (Auto) 16.7 L [place] % (Auto) 8.1 Eos % (Auto) 1.9 Baso % (Auto) 1.0 Neut # (Auto) 7.0 Lymph # (Auto) 1.6 [place] # (Auto) 0.8 Eos # (Auto) 0.2 Baso # (Auto) 0.1 D-Dimer, Quantitative 571 H pCO2 pO2 HCO3 ABG pH ABG Total CO2 ABG O2 Saturation ABG O2 Content ABG Base Excess ABG Hemoglobin ABG Carboxyhemoglobin POC ABG HHb (Measured) ABG Methemoglobin ABG O2 Capacity Rudy Test VBG pH VBG pCO2 VBG HCO3 VBG Total CO2 VBG O2 Sat (Calc) VBG Base Excess VBG Potassium A-a O2 Difference Hgb O2 Saturation Glucose Lactate FiO2 Sodium 140 Potassium 4.1 Chloride 95 L Carbon Dioxide 32 H Anion Gap 17 BUN 31 H Creatinine 7.5 H* D Est GFR ( Amer) 8 Est GFR (Non-Af Amer) 6 Random Glucose 99 Calcium 8.5 Total Bilirubin 0.5 AST 18 ALT 26 Alkaline Phosphatase 112 Troponin I 0.0260 Total Protein 6.3 Albumin 3.3 L Globulin 3.0 Albumin/Globulin Ratio 1.1 Venous Blood Potassium 03/31/18 03/31/18 14:32 15:45 WBC RBC Hgb Hct MCV MCH MCHC RDW Plt Count MPV Neut % (Auto) Lymph % (Auto) [place] % (Auto) Eos % (Auto) Baso % (Auto) Neut # (Auto) Lymph # (Auto) [place] # (Auto) Eos # (Auto) Baso # (Auto) D-Dimer, Quantitative pCO2 40 pO2 58 H 79 L HCO3 33.2 H ABG pH 7.54 H ABG Total CO2 35.4 H ABG O2 Saturation 98.1 H ABG O2 Content 13.8 L ABG Base Excess 10.7 H ABG Hemoglobin 10.3 L ABG Carboxyhemoglobin 2.0 H POC ABG HHb (Measured) 1.8 ABG Methemoglobin 1.2 ABG O2 Capacity 14.1 L Rudy Test Yes VBG pH 7.53 H VBG pCO2 41 VBG HCO3 33.1 VBG Total CO2 35.6 H VBG O2 Sat (Calc) 94.1 H VBG Base Excess 10.6 H VBG Potassium 3.9 A-a O2 Difference 584.0 Hgb O2 Saturation 95.0 Glucose 95 Lactate 1.4 FiO2 21.0 100.0 Sodium 138.0 Potassium Chloride 102.0 Carbon Dioxide Anion Gap BUN Creatinine Est GFR ( Amer) Est GFR (Non-Af Amer) Random Glucose Calcium Total Bilirubin AST ALT Alkaline Phosphatase Troponin I Total Protein Albumin Globulin Albumin/Globulin Ratio Venous Blood Potassium 3.9 Radiology Impressions: Radiology Impressions Chest X-Ray 03/31/18 14:33 IMPRESSION: Persistent worsening bilateral consolidations with lower lobe predominance, right greater than left. Probable small bilateral pleural effusions. Cardiomegaly. EKG/Cardiology Studies: Cardiology / EKG Studies 03/31/18 14:32 ELECTROCARDIOGRAM Stat Comment: Mode Of Transportation: Reason For Exam: SOB Assessment/Plan (1) Nosocomial pneumonia Current Visit: Yes Status: Acute Priority: High (2) Chronic kidney disease requiring chronic dialysis Current Visit: Yes Status: Acute Priority: High
--- NOTE | 2018-03-31 17:57 | US ---
Date of service: 03/31/2018 PROCEDURE: Bilateral lower extremity venous duplex Doppler. HISTORY: calf pain COMPARISON: None available. TECHNIQUE: Bilateral common femoral, superficial femoral, popliteal and posterior tibial veins were evaluated. Flow was assessed with color Doppler, compressibility, assessment of phasic flow and augmentation response. FINDINGS: COMMON FEMORAL VEIN: Right CFV: Unremarkable. Left CFV: Unremarkable. SUPERFICIAL FEMORAL VEIN: Right SFV: Unremarkable. Left SFV: Unremarkable. POPLITEAL VEIN: Right Popliteal: Unremarkable. Left Popliteal: Unremarkable. POSTERIOR TIBIAL VEIN: Right PTV: Unremarkable. Left PTV: Unremarkable. OTHER FINDINGS: None. IMPRESSION: No evidence of deep venous thrombosis.
[2018-03-31] MEDS ORDERED: Labetalol 5mg/ml (4ml) IVP STA (21:57)
[2018-03-31] MEDS ORDERED: Labetalol 5mg/ml (4ml) ONE (22:07)
--- NOTE | 2018-03-31 23:00 | CP.PCM.HP ---
History of Present Illness - History of Present Illness History of Present Illness: CC: Worsening cough and shortness of breath History of Present Illness: A 27 y/o female with PMH ESRD on HD ( started 3 years ago , last HD session today 03/31 with TTHS schedule), HTN,non-compliance history with dialysis,secondary hypoparathyroidism presented to ER with worsening SOB, cough and sputum production . She delivered a premature baby at 31 weeks gestational age 2 weeks ago and she was admitted with multifocal pneumonia in the hospital 03/20 until 03/23. She was treated with 5 days IV Zosyn and Zithromax and discharged on 7 days more of PO zithromycin . Patient states that she was compliant with her antibiotics upon discharged but did not improve completely . Today she had her HD in AM and later she decided to come to ER for evaluation due to [id number] SOB, cough and yellowish sputum production . She denies any f ever , chills, night sweats. Denies any sick contacts or recent travels.Denies any nausea, vomiting , abdominal or chest pain , denies any dysuria or changes with bowel movements. Patient had a baby 3 weeks back. PE was ruled out with CT with PE protocol during the prior admission. Present on Admission - Present on Admission Any Indicators Present on Admission: Yes Review of Systems - Review of Systems All systems: reviewed and no additional remarkable complaints except Review of Systems: Except as per HPI Past Patient History - Infectious Disease Hx of Infectious Diseases: None - Past Medical History & Family History Past Medical History?: Yes Past Family History: Reviewed and not pertinent - Past Social History Smoking Status: Never Smoked Alcohol: None Drugs: Denies - CARDIAC Hx Cardiac Disorders: No Hx Hypertension: Yes - PULMONARY Hx Respiratory Disorders: No Hx Pneumonia: Yes - NEUROLOGICAL Hx Neurological Disorder: No - HEENT Hx HEENT Problems: No - RENAL Hx Chronic Kidney Disease: Yes (stage III renal failure) Hx Dialysis: Yes (04/2015) Type of Dialysis Access: A-V Shunt Date of Last Dialysis Treatment: 03/31/18 Hx Renal Failure: Yes - ENDOCRINE/METABOLIC Hx Endocrine Disorders: No - HEMATOLOGICAL/ONCOLOGICAL Hx Blood Disorders: No Hx AIDS: No Hx Anemia: Yes Hx Blood Transfusions: Yes Hx Blood Transfusion Reaction: No Hx Bruising: Yes Hx Human Immunodeficiency Virus (HIV): No - INTEGUMENTARY Hx Dermatological Problems: No - MUSCULOSKELETAL/RHEUMATOLOGICAL Hx Musculoskeletal Disorders: No Hx Falls: No - GASTROINTESTINAL Hx Gastrointestinal Disorders: No - GENITOURINARY/GYNECOLOGICAL Hx Genitourinary Disorders: No Hx Urinary Tract Infection: Yes - PSYCHIATRIC Hx Psychophysiologic Disorder: No Hx Substance Use: No - SURGICAL HISTORY Hx Surgeries: Yes Hx Vascular Access Device: Yes (Left arm AV fistula) Other/Comment: Hx kidney biopsy. - ANESTHESIA Hx Anesthesia: Yes Hx Anesthesia Reactions: No Hx Malignant Hyperthermia: No Has any member of the family had a problem w/ anesthesia?: No Meds Allergies/Adverse Reactions: Allergies Allergy/AdvReac Type Severity Reaction Status Date / Time No Known Allergies Allergy Verified 03/31/18 14:26 Physical Exam - Constitutional Appears: In Acute Distress - Head Exam Head Exam: ATRAUMATIC, NORMAL INSPECTION, NORMOCEPHALIC - Eye Exam Eye Exam: EOMI, Normal appearance, PERRL Pupil Exam: NORMAL ACCOMODATION, PERRL - ENT Exam ENT Exam: Mucous Membranes Moist, Normal Exam - Neck Exam Neck exam: Positive for: Normal Inspection - Respiratory Exam Respiratory Exam: Accessory Muscle Use, Decreased Breath Sounds, Clear to Auscultation Bilateral, Rales - Cardiovascular Exam Cardiovascular Exam: Tachycardia, REGULAR RHYTHM, +S1, +S2 - GI/Abdominal Exam GI & Abdominal Exam: Normal Bowel Sounds, Soft. absent: Tenderness - Exam Exam: Circumcision - Extremities Exam Extremities exam: Positive for: normal inspection - Back Exam Back exam: NORMAL INSPECTION - Neurological Exam Neurological exam: Alert, CN II-XII Intact, Normal Gait, Oriented x3, Reflexes Normal - Psychiatric Exam Psychiatric exam: Normal Affect, Normal Mood - Skin Skin Exam: Dry, Intact, Normal Color, Warm Results - Vital Signs Recent Vital Signs: Last Vital Signs Temp 98.1 F 03/31/18 18:05 Pulse 96 H 03/31/18 20:00 Resp 14 03/31/18 20:00 BP 182/118 H 03/31/18 20:00 Pulse Ox 96 03/31/18 20:00 - Labs Result Diagrams: 04/02/18 04:25 04/02/18 04:25 Labs: Laboratory Results - last 24 hr 03/31/18 03/31/18 03/31/18 14:30 14:30 14:30 WBC 9.7 RBC 3.29 L Hgb 10.7 L D Hct 32.9 L MCV 100.2 H D MCH 32.6 H MCHC 32.6 L RDW 16.8 H Plt Count 334 D MPV 8.7 Neut % (Auto) 72.3 Lymph % (Auto) 16.7 L [place] % (Auto) 8.1 Eos % (Auto) 1.9 Baso % (Auto) 1.0 Neut # (Auto) 7.0 Lymph # (Auto) 1.6 [place] # (Auto) 0.8 Eos # (Auto) 0.2 Baso # (Auto) 0.1 D-Dimer, Quantitative 571 H pCO2 pO2 HCO3 ABG pH ABG Total CO2 ABG O2 Saturation ABG O2 Content ABG Base Excess ABG Hemoglobin ABG Carboxyhemoglobin POC ABG HHb (Measured) ABG Methemoglobin ABG O2 Capacity Rudy Test VBG pH VBG pCO2 VBG HCO3 VBG Total CO2 VBG O2 Sat (Calc) VBG Base Excess VBG Potassium A-a O2 Difference Hgb O2 Saturation Glucose Lactate FiO2 Sodium 140 Potassium 4.1 Chloride 95 L Carbon Dioxide 32 H Anion Gap 17 BUN 31 H Creatinine 7.5 H* D Est GFR ( Amer) 8 Est GFR (Non-Af Amer) 6 Random Glucose 99 Calcium 8.5 Total Bilirubin 0.5 AST 18 ALT 26 Alkaline Phosphatase 112 Troponin I 0.0260 Total Protein 6.3 Albumin 3.3 L Globulin 3.0 Albumin/Globulin Ratio 1.1 Beta HCG, Quant Venous Blood Potassium Influenza Typ A,B (EIA) 03/31/18 03/31/18 03/31/18 14:32 15:45 16:30 WBC RBC Hgb Hct MCV MCH MCHC RDW Plt Count MPV Neut % (Auto) Lymph % (Auto) [place] % (Auto) Eos % (Auto) Baso % (Auto) Neut # (Auto) Lymph # (Auto) [place] # (Auto) Eos # (Auto) Baso # (Auto) D-Dimer, Quantitative pCO2 40 pO2 58 H 79 L HCO3 33.2 H ABG pH 7.54 H ABG Total CO2 35.4 H ABG O2 Saturation 98.1 H ABG O2 Content 13.8 L ABG Base Excess 10.7 H ABG Hemoglobin 10.3 L ABG Carboxyhemoglobin 2.0 H POC ABG HHb (Measured) 1.8 ABG Methemoglobin 1.2 ABG O2 Capacity 14.1 L Rudy Test Yes VBG pH 7.53 H VBG pCO2 41 VBG HCO3 33.1 VBG Total CO2 35.6 H VBG O2 Sat (Calc) 94.1 H VBG Base Excess 10.6 H VBG Potassium 3.9 A-a O2 Difference 584.0 Hgb O2 Saturation 95.0 Glucose 95 Lactate 1.4 FiO2 21.0 100.0 Sodium 138.0 Potassium Chloride 102.0 Carbon Dioxide Anion Gap BUN Creatinine Est GFR ( Amer) Est GFR (Non-Af Amer) Random Glucose Calcium Total Bilirubin AST ALT Alkaline Phosphatase Troponin I Total Protein Albumin Globulin Albumin/Globulin Ratio Beta HCG, Quant 48.64 Venous Blood Potassium 3.9 Influenza Typ A,B (EIA) 03/31/18 16:38 WBC RBC Hgb Hct MCV MCH MCHC RDW Plt Count MPV Neut % (Auto) Lymph % (Auto) [place] % (Auto) Eos % (Auto) Baso % (Auto) Neut # (Auto) Lymph # (Auto) [place] # (Auto) Eos # (Auto) Baso # (Auto) D-Dimer, Quantitative pCO2 pO2 HCO3 ABG pH ABG Total CO2 ABG O2 Saturation ABG O2 Content ABG Base Excess ABG Hemoglobin ABG Carboxyhemoglobin POC ABG HHb (Measured) ABG Methemoglobin ABG O2 Capacity Rudy Test VBG pH VBG pCO2 VBG HCO3 VBG Total CO2 VBG O2 Sat (Calc) VBG Base Excess VBG Potassium A-a O2 Difference Hgb O2 Saturation Glucose Lactate FiO2 Sodium Potassium Chloride Carbon Dioxide Anion Gap BUN Creatinine Est GFR ( Amer) Est GFR (Non-Af Amer) Random Glucose Calcium Total Bilirubin AST ALT Alkaline Phosphatase Troponin I Total Protein Albumin Globulin Albumin/Globulin Ratio Beta HCG, Quant Venous Blood Potassium Influenza Typ A,B (EIA) Negative for flu a/b - Imaging and Cardiology Chest x-ray Status: Report reviewed by me Additional comment: HISTORY: cough COMPARISON: Chest x-ray performed 03/22/18, CTA chest performed 03/20/18 TECHNIQUE: Chest, one view. FINDINGS: LUNGS: Persistent worsening consolidations with lower lobe predominance, right greater than left. PLEURA: Probable small bilateral pleural effusions. No definite pneumothorax . CARDIOVASCULAR: Cardiomegaly. No significant atherosclerotic calcification present. OSSEOUS STRUCTURES: No acute osseous abnormality identified. VISUALIZED UPPER ABDOMEN: Unremarkable. OTHER FINDINGS: None. IMPRESSION: Persistent worsening bilateral consolidations with lower lobe predominance, right greater than left. Probable small bilateral pleural effusions. Cardiomegaly. Assessment & Plan (1) Sepsis Status: Acute (2) Nosocomial pneumonia Status: Acute Priority: High (3) Chronic hypertension Status: Chronic (4) Chronic kidney disease with end stage renal failure on dialysis Status: Chronic - Assessment and Plan (Free Text) Plan: IV antibiotics (IV Zosyn and Azithromycin) Sputum and Blood Cultures Oxygen via nasal cannula Pulmonary, ID and Nephrology Consult U/S Venous Doppler
[2018-04-01 00:53] LABS: SQUAMOUS EPITHIAL 12 /hpf (0-5); URINE BACTERIA RARE (<OCC); URINE BILIRUBIN NEGATIVE (NEGATIVE); URINE BLOOD SMALL (NEGATIVE); URINE CLARITY SLIGHTY-CLOUDY (Clear); URINE COLOR YELLOW (YELLOW); URINE GLUCOSE (UA) 150 mg/dL (NEGATIVE); URINE LEUKOCYTE ESTERASE NEG Leu/uL (Negative); URINE PROTEIN 100 mg/dL (NEGATIVE); URINE UROBILINOGEN 0.2-1.0 mg/dL (0.2-1.0)
[2018-04-01 06:46] LABS: HEMOGLOBIN 10.5 g/dL (12.0-16.0); MEAN CELL VOLUME 100.8 fl (81.0-99.0); MEAN CORPUSCULAR HEMOGLOBIN 33.5 pg (27.0-31.0); MEAN CORPUSCULAR HGB CONC 33.2 g/dL (33.0-37.0); RBC 3.14 Mil/uL (3.80-5.20); RED CELL DISTRIBUTION WIDTH 16.8 % (11.5-14.5); WHITE BLOOD COUNT 10.1 K/uL (4.8-10.8)
[2018-04-01 07:13] LABS: ALB/GLOB RATIO 1.1 (1.0-2.1); ALBUMIN 3.3 g/dL (3.5-5.0); CALCIUM 8.7 mg/dL (8.4-10.2)
[2018-04-01] MEDS ORDERED: Albuterol-Ipratrop 3 mg / 0.5 (3 ml) UD INH PRN (10:58)
[2018-04-01] MEDS: Azithromycin 500 MG in Sodium Chloride 0.9% 250 ML IVPB SCH (11:16)
--- NOTE | 2018-04-01 11:59 | CARD ---
APPROVED REPORT Date of service: 03/31/2018 EKG Measurement Heart [id number] [id number] [id number] <Conclusion> Normal sinus rhythm Prolonged QT Abnormal ECG
[2018-04-01 12:26] VITALS: BMI 28.3
[2018-04-01 21:39] LABS: ABG ALLEN TEST YES; ARTERIAL BLOOD GAS HCO3 26.3 mmol/L (21-28); ARTERIAL BLOOD GAS O2 CAPACITY 13.8 mL/dL (16-24); ARTERIAL BLOOD GAS O2 CONTENT 12.7 ML/dL (15-23); ARTERIAL BLOOD GAS PCO2 34 mm/Hg (35-45); ARTERIAL BLOOD GAS PH 7.48 (7.35-7.45); ARTERIAL BLOOD GAS PO2 58 mm/Hg (80-100); ARTERIAL BLOOD GAS TCO2 26.3 mmol/L (22-28)
[2018-04-01] MEDS ORDERED: Albuterol-Ipratrop 3 mg / 0.5 (3 ml) UD INH STA (22:18)
[2018-04-02] MEDS ORDERED: Albuterol-Ipratrop 3 mg / 0.5 (3 ml) UD INH STA (03:13)
[2018-04-02] MEDS ORDERED: Labetalol 5mg/ml (4ml) IVP STA (04:52)
[2018-04-02 05:52] LABS: BASO # 0.1 K/uL (0.0-0.2); BASO % 0.8 % (0.0-2.0); EOS # 0.2 K/uL (0.0-0.7); EOS % 1.6 % (0.0-4.0); LYMPH # 2.5 K/uL (1.0-4.3); LYMPH % 21.3 % (20.0-40.0); MEAN CELL VOLUME 101.5 fl (81.0-99.0); MEAN CORPUSCULAR HEMOGLOBIN 31.9 pg (27.0-31.0); MEAN CORPUSCULAR HGB CONC 31.4 g/dL (33.0-37.0); MEAN PLATELET VOLUME 8.8 fl (7.2-11.7); MONO # 0.8 K/uL (0.0-0.8); MONO % 6.7 % (0.0-10.0); NEUT % 69.6 % (50.0-75.0); NRBC % 0.1 % (0.0-0.0); RBC 3.44 Mil/uL (3.80-5.20); RED CELL DISTRIBUTION WIDTH 16.6 % (11.5-14.5); WHITE BLOOD COUNT 11.5 K/uL (4.8-10.8)
[2018-04-02 06:03] LABS: TROPONIN I 0.032 ng/mL (0.00-0.120)
[2018-04-02 06:20] LABS: ALB/GLOB RATIO 1.1 (1.0-2.1); ALBUMIN 3.4 g/dL (3.5-5.0); CALCIUM 9.2 mg/dL (8.4-10.2)
--- NOTE | 2018-04-02 07:47 | CP.PCM.PN ---
Subjective - Date & Time of Evaluation Date of Evaluation: 04/01/18 Time of Evaluation: 12:10 Objective - Vital Signs/Intake and Output Vital Signs (last 24 hours): Temp Pulse Resp BP Pulse Ox 98.2 F 95 H 21 172/106 H 94 L 04/02/18 00:00 04/02/18 05:00 04/02/18 06:52 04/02/18 05:00 04/02/18 05:00 Intake and Output: 04/02/18 04/02/18 06:59 18:59 Intake Total 90 50 Output Total 350 Balance -260 50 - Medications Medications: Current Medications Acetaminophen (Tylenol 325mg Tab) 650 mg PO Q8 PRN PRN Reason: Other Last Admin: 04/02/18 00:09 Dose: 650 mg Albuterol/Ipratropium (Duoneb 3 Mg/0.5 Mg (3 Ml) Ud) 3 ml INH RQ6 PRN PRN Reason: Shortness of Breath Last Admin: 04/01/18 20:14 Dose: 3 ml Amlodipine Besylate (Norvasc) 10 mg PO DAILY [facility] Last Admin: 04/01/18 13:43 Dose: 10 mg Calcitriol (Rocaltrol) 0.25 mcg PO DAILY [facility] Last Admin: 04/01/18 08:44 Dose: 0.25 mcg Piperacillin Sod/Tazobactam (Sod 2.25 gm/ Sodium Chloride) 100 mls @ 100 mls/hr IVPB Q6 [facility]; Protocol Last Admin: 04/02/18 03:56 Dose: 100 mls/hr Azithromycin 500 mg/ Sodium (Chloride) 250 mls @ 250 mls/hr IVPB DAILY [facility]; Protocol Last Admin: 04/01/18 11:16 Dose: 250 mls/hr Labetalol HCl (Trandate) 200 mg PO Q12 [facility] Last Admin: 04/01/18 20:02 Dose: 200 mg Pneumococcal Polyvalent Vaccine (Pneumovax 23 Vaccine) 0.5 ml IM .ONCE ONE Stop: 04/02/18 09:01 - Labs Labs: 04/02/18 04:25 04/02/18 04:25
--- NOTE | 2018-04-02 08:16 | CP.PCM.CON ---
History of Present Illness - History of Present Illness History of Present Illness: This patient known to me with end-stage renal disease on maintenance hemodialysis noncompliance lady with a dialysis she cut dialysis on Monday and she has been cutting dialysis Monday time prior to that and she came to the emergency room with the following problem 27 y/o female with PMH ESRD on HD ( started 3 years ago , last HD session today 03/31 with TTHS schedule), HTN,non compliance history with dialysis,secondary hypoparathyroidism presented to ER with worsening SOB, cough and sputum production . She delivered a premature baby at 31 weeks gestational age 2 weeks ago and she was admitted with multifocal pneumonia in the hospital 03/20 until 03/23. She was treated with 5 days IV Zosyn and Zithromax and discharged on 7 days more of PO zithromycin . Patient states that she was compliant with her antibiotics upon discharged but did not improve completely . Today she had her HD in AM and later she decided to come to ER for evaluation due to [id number] SOB, cough and yellowish sputum production . She denies any fever , chills, night sweats. Denies any sick contacts or recent travels.Denies any nausea, vomiting , abdominal or chest pain , denies any dysuria or changes with bowel movements Allergies ; NKDA PMH ; ESRD on HD ( started 3 years ago ), HTN,non compliance history with dialysis,secondary hyperparathyroidism [id number] ; See Med rec Surgery : YVES MILLER Family history ; Not contributory Family histyory ; Livesd i [place] with boyfriend and her daughters 9 and 12 yearsd old, delivered a premature baby at 31 week gestational age 2 weeks ago , denies smoking , ETOH or drug abuse, house Review of Systems - Constitutional Constitutional: Anorexia - EENT Eyes: Exophthalmos Nose/Mouth/Throat: absent: Epistaxis, Post Nasal Drip - Cardiovascular Cardiovascular: Dyspnea on Exertion, Leg Edema. absent: Acrocyanosis, Chest Pain - Respiratory Respiratory: Cough, Dyspnea on Exertion, Chest Congestion. absent: Hemoptysis - Gastrointestinal Gastrointestinal: As Per HPI. absent: Abdominal Pain, Coffee Ground Emesis - Genitourinary Genitourinary: Nocturia - Musculoskeletal Musculoskeletal: absent: Arthralgias, Back Pain - Neurological Neurological: As Per HPI, Abnormal Gait, Abnormal Hearing, Abnormal Movements, Abnormal Speech, Behavioral Changes, Burning Sensations, Convulsions, Disequilibrium, Numbness, Frequent Falls, Headaches, Lack of Coordination, Loss of Vision, Memory Loss, Paresthesias, Radicular Pain, Restless Legs, Sensory Deficit, Syncope, Tingling, Tremor, Vertigo, Weakness, Other Visual Disturbances, Other. absent: Confusion, Dizziness, Focal Weakness - Endocrine Endocrine: Fatigue - Hematologic/Lymphatic Hematologic: absent: Easy Bleeding Past Patient History - Infectious Disease Hx of Infectious Diseases: None - Past Medical History & Family History Past Medical History?: Yes Past Family History: Reviewed and not pertinent - Past Social History Smoking Status: Never Smoked Alcohol: None Drugs: Denies - CARDIAC Hx Cardiac Disorders: No Hx Hypertension: Yes - PULMONARY Hx Respiratory Disorders: No Hx Pneumonia: Yes - NEUROLOGICAL Hx Neurological Disorder: No - HEENT Hx HEENT Problems: No - RENAL Hx Chronic Kidney Disease: Yes (stage III renal failure) Hx Dialysis: Yes (04/2015) Type of Dialysis Access: A-V Shunt Date of Last Dialysis Treatment: 03/31/18 Hx Renal Failure: Yes - ENDOCRINE/METABOLIC Hx Endocrine Disorders: No - HEMATOLOGICAL/ONCOLOGICAL Hx Blood Disorders: No Hx AIDS: No Hx Anemia: Yes Hx Blood Transfusions: Yes Hx Blood Transfusion Reaction: No Hx Bruising: Yes Hx Human Immunodeficiency Virus (HIV): No - INTEGUMENTARY Hx Dermatological Problems: No - MUSCULOSKELETAL/RHEUMATOLOGICAL Hx Musculoskeletal Disorders: No Hx Falls: No - GASTROINTESTINAL Hx Gastrointestinal Disorders: No - GENITOURINARY/GYNECOLOGICAL Hx Genitourinary Disorders: No Hx Urinary Tract Infection: Yes - PSYCHIATRIC Hx Psychophysiologic Disorder: No Hx Substance Use: No - SURGICAL HISTORY Hx Surgeries: Yes Hx Vascular Access Device: Yes (Left arm AV fistula) Other/Comment: Hx kidney biopsy. - ANESTHESIA Hx Anesthesia: Yes Hx Anesthesia Reactions: No Hx Malignant Hyperthermia: No Has any member of the family had a problem w/ anesthesia?: No Meds Allergies/Adverse Reactions: Allergies Allergy/AdvReac Type Severity Reaction Status Date / Time No Known Allergies Allergy Verified 03/31/18 14:26 - Medications Medications: Current Medications Acetaminophen (Tylenol 325mg Tab) 650 mg PO Q8 PRN PRN Reason: Other Last Admin: 04/02/18 00:09 Dose: 650 mg Albuterol/Ipratropium (Duoneb 3 Mg/0.5 Mg (3 Ml) Ud) 3 ml INH RQ6 PRN PRN Reason: Shortness of Breath Last Admin: 04/01/18 20:14 Dose: 3 ml Amlodipine Besylate (Norvasc) 10 mg PO DAILY [facility] Last Admin: 04/01/18 13:43 Dose: 10 mg Calcitriol (Rocaltrol) 0.25 mcg PO DAILY [facility] Last Admin: 04/01/18 08:44 Dose: 0.25 mcg Piperacillin Sod/Tazobactam (Sod 2.25 gm/ Sodium Chloride) 100 mls @ 100 mls/hr IVPB Q6 [facility]; Protocol Last Admin: 04/02/18 03:56 Dose: 100 mls/hr Azithromycin 500 mg/ Sodium (Chloride) 250 mls @ 250 mls/hr IVPB DAILY [facility]; Protocol Last Admin: 04/01/18 11:16 Dose: 250 mls/hr Labetalol HCl (Trandate) 200 mg PO Q12 [facility] Last Admin: 04/01/18 20:02 Dose: 200 mg Pneumococcal Polyvalent Vaccine (Pneumovax 23 Vaccine) 0.5 ml IM .ONCE ONE Stop: 04/02/18 09:01 Physical Exam - Constitutional Appears: No Acute Distress - Eye Exam Eye Exam: Conjunctival injection - ENT Exam ENT Exam: Mucous Membranes Moist - Neck Exam Neck exam: Negative for: Lymphadenopathy - Respiratory Exam Respiratory Exam: Rales, Rhonchi - Cardiovascular Exam Cardiovascular Exam: JVD. absent: Rubs - GI/Abdominal Exam GI & Abdominal Exam: Normal Bowel Sounds - Extremities Exam Extremities exam: Negative for: calf tenderness - Back Exam Back exam: absent: CVA tenderness (L), CVA tenderness (R) - Neurological Exam Neurological exam: Alert Results - Vital Signs Recent Vital Signs: Last Vital Signs Temp 98.2 F 04/02/18 00:00 Pulse 95 H 04/02/18 05:00 Resp 20 04/02/18 08:12 BP 172/106 H 04/02/18 05:00 Pulse Ox 94 L 04/02/18 05:00 - Labs Result Diagrams: 04/02/18 04:25 04/02/18 04:25 Labs: Laboratory Results - last 24 hr 04/01/18 04/01/18 04/02/18 21:15 21:31 04:25 WBC RBC Hgb Hct MCV MCH MCHC RDW Plt Count MPV Neut % (Auto) Lymph % (Auto) [place] % (Auto) Eos % (Auto) Baso % (Auto) Neut # (Auto) Lymph # (Auto) [place] # (Auto) Eos # (Auto) Baso # (Auto) pCO2 34 L pO2 58 L HCO3 26.3 ABG pH 7.48 H ABG Total CO2 26.3 ABG O2 Saturation 92.0 L ABG O2 Content 12.7 L ABG Base Excess 1.9 ABG Hemoglobin 10.0 L ABG Carboxyhemoglobin 1.2 POC ABG HHb (Measured) 7.8 H ABG Methemoglobin 0.7 ABG O2 Capacity 13.8 L Rudy Test Yes A-a O2 Difference 213.0 Hgb O2 Saturation 90.3 L FiO2 44.0 Sodium 141 Potassium 4.5 Chloride 96 L Carbon Dioxide 24 Anion Gap 26 H BUN 60 H Creatinine 11.6 H* D Est GFR ( Amer) 5 Est GFR (Non-Af Amer) 4 Random Glucose 86 Calcium 9.2 Phosphorus 7.4 H Magnesium 1.9 Total Bilirubin 0.6 AST 18 ALT 20 Alkaline Phosphatase 90 Troponin I 0.0300 0.0320 Total Protein 6.4 Albumin 3.4 L Globulin 3.0 Albumin/Globulin Ratio 1.1 04/02/18 04:25 WBC 11.5 H RBC 3.44 L Hgb 11.0 L Hct 34.9 MCV 101.5 H MCH 31.9 H MCHC 31.4 L RDW 16.6 H Plt Count 331 MPV 8.8 Neut % (Auto) 69.6 Lymph % (Auto) 21.3 [place] % (Auto) 6.7 Eos % (Auto) 1.6 Baso % (Auto) 0.8 Neut # (Auto) 8.0 H Lymph # (Auto) 2.5 [place] # (Auto) 0.8 Eos # (Auto) 0.2 Baso # (Auto) 0.1 pCO2 pO2 HCO3 ABG pH ABG Total CO2 ABG O2 Saturation ABG O2 Content ABG Base Excess ABG Hemoglobin ABG Carboxyhemoglobin POC ABG HHb (Measured) ABG Methemoglobin ABG O2 Capacity Rudy Test A-a O2 Difference Hgb O2 Saturation FiO2 Sodium Potassium Chloride Carbon Dioxide Anion Gap BUN Creatinine Est GFR ( Amer) Est GFR (Non-Af Amer) Random Glucose Calcium Phosphorus Magnesium Total Bilirubin AST ALT Alkaline Phosphatase Troponin I Total Protein Albumin Globulin Albumin/Globulin Ratio Assessment & Plan (1) Chronic kidney disease requiring chronic dialysis Assessment and Plan: Patient with end-stage renal disease on dialysis 3 times a week she has been missing or cutting treatment noncompliance Patient admitted with bilateral pneumonia Patient reported on chest x-ray possible bilateral pleural effusion Probably volume overloaded hyperphosphatemia hyperparathyroidism Recent delivery of premature baby Plan Hemodialysis today order was given consent was taken Antibiotics as per primary team Phosphorus binder Sensipar Oxygen Status: Acute Priority: High (2) Nosocomial pneumonia Status: Acute Priority: High
--- NOTE | 2018-04-02 08:21 | RAD ---
Date of service: 04/01/2018 HISTORY: SOB COMPARISON: Frontal chest radiograph 03/31/2018. FINDINGS: LUNGS: Dense consolidation at the mid to inferior right pulmonary region is reiterated as well as left perihilar and basilar sub segments. Trace patchy density unchanged left apex. PLEURA: No significant pleural effusion identified, no pneumothorax apparent. CARDIOVASCULAR: No aortic atherosclerotic calcification present. Prominent cardiac silhouette reiterated. No pulmonary vascular congestion. OSSEOUS STRUCTURES: No significant abnormalities. VISUALIZED UPPER ABDOMEN: Normal. OTHER FINDINGS: None. IMPRESSION: Poly lobar dense pneumonia reiterated, no significant interval change.
[2018-04-02] MEDS ORDERED: Pneumococcal 23-Valent Vaccine IM ONE (09:00)
[2018-04-02] MEDS: Azithromycin 500 MG in Sodium Chloride 0.9% 250 ML IVPB SCH ×2 (09:00→09:06)
--- NOTE | 2018-04-02 10:14 | CP.PCM.PN ---
Subjective - Date & Time of Evaluation Date of Evaluation: 04/02/18 Time of Evaluation: 10:12 - Subjective Subjective: Dialysis note Urgent hemodialysis started from the left upper arm AV shunt Discussed with the dialysis nurse at the bedside Patient awake and conscious Blood pressure elevated she was given antihypertensive medication earlier. Complaining of shortness of breath Objective - Vital Signs/Intake and Output Vital Signs (last 24 hours): Temp Pulse Resp BP Pulse Ox 98.2 F 90 20 162/98 H 94 L 04/02/18 00:00 04/02/18 08:59 04/02/18 08:12 04/02/18 08:59 04/02/18 05:00 Intake and Output: 04/02/18 04/02/18 06:59 18:59 Intake Total 90 50 Output Total 350 Balance -260 50 - Medications Medications: Current Medications Acetaminophen (Tylenol 325mg Tab) 650 mg PO Q8 PRN PRN Reason: Other Last Admin: 04/02/18 00:09 Dose: 650 mg Albuterol/Ipratropium (Duoneb 3 Mg/0.5 Mg (3 Ml) Ud) 3 ml INH RQ6 PRN PRN Reason: Shortness of Breath Last Admin: 04/01/18 20:14 Dose: 3 ml Amlodipine Besylate (Norvasc) 10 mg PO DAILY [facility] Last Admin: 04/02/18 08:59 Dose: 10 mg Calcitriol (Rocaltrol) 0.25 mcg PO DAILY [facility] Last Admin: 04/01/18 08:44 Dose: 0.25 mcg Piperacillin Sod/Tazobactam (Sod 2.25 gm/ Sodium Chloride) 100 mls @ 100 mls/hr IVPB Q6 [facility]; Protocol Last Admin: 04/02/18 09:07 Dose: 100 mls/hr Azithromycin 500 mg/ Sodium (Chloride) 250 mls @ 250 mls/hr IVPB DAILY [facility]; Protocol Last Admin: 04/02/18 09:06 Dose: 250 mls/hr Labetalol HCl (Trandate) 200 mg PO Q12 [facility] Last Admin: 04/02/18 08:59 Dose: 200 mg - Labs Labs: 04/02/18 04:25 04/02/18 04:25 - Constitutional Appears: No Acute Distress - Eye Exam Eye Exam: Conjunctival injection - ENT Exam ENT Exam: Mucous Membranes Moist - Neck Exam Neck Exam: absent: Lymphadenopathy - Respiratory Exam Respiratory Exam: Rales, Rhonchi. absent: Chest Wall Tenderness - Cardiovascular Exam Cardiovascular Exam: absent: Gallop, JVD, Rubs - GI/Abdominal Exam GI & Abdominal Exam: Soft, Normal Bowel Sounds - Extremities Exam Extremities Exam: absent: Calf Tenderness - Back Exam Back Exam: absent: CVA tenderness (L), CVA tenderness (R) - Neurological Exam Neurological Exam: Alert - Psychiatric Exam Psychiatric exam: Normal Affect - Skin Skin Exam: absent: Cyanosis Assessment and Plan (1) Chronic kidney disease requiring chronic dialysis Assessment & Plan: End-stage renal disease Urgent hemodialysis in progress now tolerating well Patient admitted with bilateral pneumonia and volume overloaded and bilateral pleural effusion The plan No hemodialysis with ultrafiltration 2500 cc as tolerated Serum phosphorus and PTH pending Status: Acute (2) Nosocomial pneumonia Status: Acute
[2018-04-02 12:09] VITALS: TEMP 97.6
--- NOTE | 2018-04-02 12:09 | CARD ---
APPROVED REPORT Date of service: 04/02/2018 EKG Measurement Heart [id number] 146P-5 [id number] <Conclusion> Normal sinus rhythm Poor R wave progression in Precordial leads Abnormal ECG
[2018-04-02 15:29] VITALS: BP 165/103; PULSE 91; RESP 29; O2SAT 91
--- NOTE | 2018-04-03 09:56 | CP.PCM.DIS ---
Provider - Provider Date of Admission: 03/31/18 15:49 Attending physician: Cassandra Reveles MD Consults: 04/02/18 07:00 Nephrology Consult Routine Comment: Consulting Provider: Go Pichardo Consulting Physician: Go Pichardo Reason for Consult: ESRD needs dialysis 04/02/18 08:00 Case Management Referral Routine Comment: Physician Instructions: Reason For Exam: Reason for Referral: Discharge Planning Nursing Referral for Palliative Care Routine Comment: Consulting Provider: Physician Instructions: Reason For Exam: multipal admission Social Work Referral Routine Comment: ESRD Physician Instructions: Reason For Exam: evaluate for home needs Time Spent in preparation of Discharge (in minutes): 25 Diagnosis - Discharge Diagnosis (1) Sepsis Status: Acute (2) Nosocomial pneumonia Status: Acute Priority: High (3) Chronic hypertension Status: Chronic (4) Chronic kidney disease with end stage renal failure on dialysis Status: Chronic Hospital Course - Lab Results Lab Results: Micro Results 03/31/18 07:10 Naris MRSA Culture (Admit) - Final MRSA NOT DETECTED 03/31/18 14:30 Blood-Venous Blood Culture - Preliminary NO GROWTH AFTER 48 HOURS 03/31/18 17:00 Sputum Gram Stain - Final 03/31/18 17:00 Sputum Sputum Culture - Final NORMAL ORAL CONNER 04/01/18 09:32 Urine,Clean Catch Urine Culture - Final No Growth (<1,000 CFU/ML) Most Recent Lab Values WBC 11.5 K/uL (4.8-10.8) H 04/02/18 04:25 RBC 3.44 Mil/uL (3.80-5.20) L 04/02/18 04:25 Hgb 11.0 g/dL (12.0-16.0) L 04/02/18 04:25 Hct 34.9 % (34.0-47.0) 04/02/18 04:25 MCV 101.5 fl (81.0-99.0) H 04/02/18 04:25 MCH 31.9 pg (27.0-31.0) H 04/02/18 04:25 MCHC 31.4 g/dL (33.0-37.0) L 04/02/18 04:25 RDW 16.6 % (11.5-14.5) H 04/02/18 04:25 Plt Count 331 K/uL (130-400) 04/02/18 04:25 MPV 8.8 fl (7.2-11.7) 04/02/18 04:25 Neut % (Auto) 69.6 % (50.0-75.0) 04/02/18 04:25 Lymph % (Auto) 21.3 % (20.0-40.0) 04/02/18 04:25 [place] % (Auto) 6.7 % (0.0-10.0) 04/02/18 04:25 Eos % (Auto) 1.6 % (0.0-4.0) 04/02/18 04:25 Baso % (Auto) 0.8 % (0.0-2.0) 04/02/18 04:25 Neut # (Auto) 8.0 K/uL (1.8-7.0) H 04/02/18 04:25 Lymph # (Auto) 2.5 K/uL (1.0-4.3) 04/02/18 04:25 [place] # (Auto) 0.8 K/uL (0.0-0.8) 04/02/18 04:25 Eos # (Auto) 0.2 K/uL (0.0-0.7) 04/02/18 04:25 Baso # (Auto) 0.1 K/uL (0.0-0.2) 04/02/18 04:25 D-Dimer, Quantitative 571 ng/mlDDU (0-230) H 03/31/18 14:30 pCO2 34 mm/Hg (35-45) L 04/01/18 21:31 pO2 58 mm/Hg (80-100) L 04/01/18 21:31 HCO3 26.3 mmol/L (21-28) 04/01/18 21:31 ABG pH 7.48 (7.35-7.45) H 04/01/18 21:31 ABG Total CO2 26.3 mmol/L (22-28) 04/01/18 21:31 ABG O2 Saturation 92.0 % (95-98) L 04/01/18 21:31 ABG O2 Content 12.7 ML/dL (15-23) L 04/01/18 21:31 ABG Base Excess 1.9 mmol/L (-2.0-3.0) 04/01/18 21:31 ABG Hemoglobin 10.0 g/dL (11.7-17.4) L 04/01/18 21:31 ABG Carboxyhemoglobin 1.2 % (0.5-1.5) 04/01/18 21:31 POC ABG HHb (Measured) 7.8 % (0.0-5.0) H 04/01/18 21:31 ABG Methemoglobin 0.7 % (0.0-3.0) 04/01/18 21:31 ABG O2 Capacity 13.8 mL/dL (16-24) L 04/01/18 21:31 Rudy Test Yes 04/01/18 21:31 VBG pH 7.53 (7.32-7.43) H 03/31/18 14:32 VBG pCO2 41 mmHg (40-60) 03/31/18 14:32 VBG HCO3 33.1 mmol/L 03/31/18 14:32 VBG Total CO2 35.6 mmol/L (22-28) H 03/31/18 14:32 VBG O2 Sat (Calc) 94.1 % (40-65) H 03/31/18 14:32 VBG Base Excess 10.6 mmol/L (0.0-2.0) H 03/31/18 14:32 VBG Potassium 3.9 mmol/L (3.6-5.2) 03/31/18 14:32 A-a O2 Difference 213.0 mm/Hg 04/01/18 21:31 Hgb O2 Saturation 90.3 % (95.0-98.0) L 04/01/18 21:31 Sodium 138.0 mmol/L (132-148) 03/31/18 14:32 Chloride 102.0 mmol/L (98-107) 03/31/18 14:32 Glucose 95 mg/dL (65-105) 03/31/18 14:32 Lactate 1.4 mmol/L (0.7-2.1) 03/31/18 14:32 FiO2 44.0 % 04/01/18 21:31 Sodium 141 mmol/l (132-148) 04/02/18 04:25 Potassium 4.5 MMOL/L (3.6-5.0) 04/02/18 04:25 Chloride 96 mmol/L (98-107) L 04/02/18 04:25 Carbon Dioxide 24 mmol/L (22-30) 04/02/18 04:25 Anion Gap 26 (10-20) H 04/02/18 04:25 BUN 60 mg/dl (7-17) H 04/02/18 04:25 Creatinine 11.6 mg/dl (0.7-1.2) H* D 04/02/18 04:25 Est GFR ( Amer) 5 04/02/18 04:25 Est GFR (Non-Af Amer) 4 04/02/18 04:25 Random Glucose 86 mg/dL (65-105) 04/02/18 04:25 Calcium 9.2 mg/dL (8.4-10.2) 04/02/18 04:25 Phosphorus 7.4 mg/dl (2.5-4.5) H 04/02/18 04:25 Magnesium 1.9 MG/DL (1.6-2.3) 04/02/18 04:25 Total Bilirubin 0.6 mg/dl (0.2-1.3) 04/02/18 04:25 AST 18 U/L (14-36) 04/02/18 04:25 ALT 20 U/L (9-52) 04/02/18 04:25 Alkaline Phosphatase 90 U/L (38-126) 04/02/18 04:25 Troponin I 0.0320 ng/mL (0.00-0.120) 04/02/18 04:25 NT-Pro-B Natriuret Pep 65189 pg/ml (0-450) H 04/01/18 05:30 Total Protein 6.4 G/DL (6.3-8.2) 04/02/18 04:25 Albumin 3.4 g/dL (3.5-5.0) L 04/02/18 04:25 Globulin 3.0 gm/dL (2.2-3.9) 04/02/18 04:25 Albumin/Globulin Ratio 1.1 (1.0-2.1) 04/02/18 04:25 Beta HCG, Quant 48.64 mIU/mL 03/31/18 16:30 Venous Blood Potassium 3.9 mmol/L (3.6-5.2) 03/31/18 14:32 Urine Color Yellow (YELLOW) 03/31/18 00:30 Urine Clarity Slighty-cloudy (Clear) 03/31/18 00:30 Urine pH 9.0 (5.0-8.0) 03/31/18 00:30 Ur Specific [place] 1.008 (1.003-1.030) 03/31/18 00:30 Urine Protein 100 mg/dL (NEGATIVE) 03/31/18 00:30 Urine Glucose (UA) 150 mg/dL (NEGATIVE) 03/31/18 00:30 Urine Ketones Negative mg/dL (NEGATIVE) 03/31/18 00:30 Urine Blood Small (NEGATIVE) 03/31/18 00:30 Urine Nitrate Negative (NEGATIVE) 03/31/18 00:30 Urine Bilirubin Negative (NEGATIVE) 03/31/18 00:30 Urine Urobilinogen 0.2-1.0 mg/dL (0.2-1.0) 03/31/18 00:30 Ur Leukocyte Esterase Neg [place]/uL (Negative) 03/31/18 00:30 Urine RBC (Auto) 2 /hpf (0-3) 03/31/18 00:30 Urine Microscopic WBC 1 /hpf (0-5) 03/31/18 00:30 Ur Squamous Epith Cells 12 /hpf (0-5) H 03/31/18 00:30 Urine Bacteria Rare (<OCC) 03/31/18 00:30 Influenza Typ A,B (EIA) Negative for flu a/b (NEGATIVE) 03/31/18 16:38 Discharge Exam - Head Exam Head Exam: ATRAUMATIC, NORMAL INSPECTION, NORMOCEPHALIC Discharge Plan - Follow Up Plan Condition: GUARDED Disposition: HOME/ ROUTINE
== END 2018-04-02 15:00 | disposition home or self-care (01) | DRG 776 ==
LOC: H.ER 14:14 → H.ERHOLD 15:49 → H.ICU/CCU 18:00
PROVIDERS: ADMIT Internal Medicine; ATTEND Internal Medicine
PROC: 5A1D70Z Performance of Urinary Filtration, Intermittent, Less than 6 Hours Per Day (ICD-10-PCS; principal; 2018-04-02)
DX: O85 Puerperal sepsis (principal); J15.9 Unspecified bacterial pneumonia; N18.6 End stage renal disease; I12.0 Hypertensive chronic kidney disease with stage 5 chronic kidney disease or end stage renal disease; N25.81 Secondary hyperparathyroidism of renal origin; J90 Pleural effusion, not elsewhere classified; J44.0 Chronic obstructive pulmonary disease with (acute) lower respiratory infection; O99.53 Diseases of the respiratory system complicating the puerperium; O90.89 Other complications of the puerperium, not elsewhere classified; O90.81 Anemia of the puerperium; E87.70 Fluid overload, unspecified; Z91.15 Patient's noncompliance with renal dialysis; Z99.2 Dependence on renal dialysis; I51.7 Cardiomegaly; Y95 Nosocomial condition; Z87.01 Personal history of pneumonia (recurrent); Z87.440 Personal history of urinary (tract) infections; Z91.19 Patient's noncompliance with other medical treatment and regimen; E20.8 Other hypoparathyroidism; G43.909 Migraine, unspecified, not intractable, without status migrainosus